=== PATIENT | female | born 1965 | race Caucasian/White ===

== ENCOUNTER → 2019-01-27 14:02 | Outpatient (CLI) | payer OTHER, SELFPAY ==
[2019-01-27 14:34] LABS: Erythrocyte Sedimentation Rate 22 mm/hr (0-30)
[2019-01-27 14:40] LABS: Chol/HDL Ratio 5.7 (1-3.5); Cholesterol 137 mg/dL (140-200); Free T4 (Free Thyroxine) 1.15 ng/dl (0.76-1.46); HDL Cholesterol 24 mg/dL (29-89); LDL Cholesterol 85 mg/dL (0-130); Triglycerides 138 mg/dL (30-200); VLDL Cholesterol 28 mg/dL (0-40)
[2019-01-27 14:51] LABS: C-Reactive Protein < 0.2 mg/L (0.0-0.9)
[2019-01-27 15:25] LABS: Hemoglobin A1C 9.1 % (0.0-7.0)
[2019-01-28 12:26] LABS: Anti-Centromere B Antibodies <0.2 AI (0.0-0.9); Anti-Jo-1 <0.2 AI (0.0-0.9); Anti-Smith Antibody <0.2 AI (0.0-0.9); Antichromatin Antibodies <0.2 AI (0.0-0.9); Antiscleroderma-70 Antibodies <0.2 AI (0.0-0.9); RNP Antibodies <0.2 AI (0.0-0.9); Sjogren's Anti-SS-A <0.2 AI (0.0-0.9); Sjogren's Anti-SS-B <0.2 AI (0.0-0.9)
[2019-01-29 06:26] LABS: Anti-DNA (DS) Ab Qn 1 IU/mL (0-9); RA Latex Turbid. <10.0 IU/mL (0.0-13.9); Triiodothyronine (T3) Free 3.9 pg/mL (2.0-4.4); Vitamin D 25 Hydroxy 72.4 ng/mL (30.0-100.0)
[2019-01-30 07:45] LABS: Anti-Cyclic Citrullinated Pept 10 units (0-19)
== END ==
PROVIDERS: Visit Provider Nurse Practitioner Family
DX: R53.83 Other fatigue (principal); M54.9 Dorsalgia, unspecified; R73.09 Other abnormal glucose
CPT/HCPCS: 80061; 82652; 83036; 84439; 84443; 84481; 85651; 86140; 86200; 86225; 86235; 86431

== ENCOUNTER → 2019-01-28 14:06 | Outpatient (CLI) | payer OTHER, SELFPAY ==
--- NOTE | 2019-01-28 14:11 | XR_ITS ---
EXAM: XR lumbar spine 2-3V HISTORY: ITS.REASON: pain ORDERING PHYSICIAN: Rubia Rodriguez APRN PATIENT AGE: 53 years COMPARISON: None FINDINGS: Normal alignment. No fracture or dislocation. No lytic or blastic change. Degenerative disc disease is present at T12-L1 and L1-L2. There are mild hypertrophic changes along the inferior left SI joint. IMPRESSION: Degenerative change, no acute finding
== END ==
PROVIDERS: PCP Emergency Medicine; Visit Provider Nurse Practitioner Family
DX: M54.9 Dorsalgia, unspecified (principal); M54.5 Low back pain
CPT/HCPCS: 72100

== ENCOUNTER → 2020-03-04 16:50 | Outpatient (CLI) | payer MEDICAID, SELFPAY | PROVIDERS: Visit Provider Physician Assistant | DX: E11.9 Type 2 diabetes mellitus without complications (principal); I10 Essential (primary) hypertension | CPT/HCPCS: 82043 ==

== ENCOUNTER → 2020-03-22 10:17 | Outpatient (CLI) | payer MEDICAID, SELFPAY ==
[2020-03-22 10:34] LABS: Basophils # 0.1 K/mm3 (0-0.2); Basophils % 0.8 % (0.1-2.0); Eosinophils # 0.2 K/mm3 (0.0-0.4); Hematocrit 45.9 % (37.0-47.0); Hemoglobin 16.1 g/dL (12.2-16.2); Lymphocytes # 1.8 K/mm3 (0.7-4.5); Lymphocytes % 26.6 % (10-50); Mean Corpuscular HGB Conc 35.2 g/dL (31.8-35.4); Mean Corpuscular Hemoglobin 31.9 pg (27.0-31.2); Mean Corpuscular Volume 90.7 fl (81-99); Mean Platelet Volume 9.7 fl (7.4-10.4); Monocytes # 0.4 K/mm3 (0.1-1.0); Monocytes % 5.8 % (1.7-9.3); Neutrophils # 4.4 K/mm3 (1.8-7.8); Neutrophils % 63.9 % (37.0-80.0); Platelet Count 168 K/mm3 (142-424); Red Blood Count 5.06 M/mm3 (4.20-5.40); Red Cell Distribution Width 13.8 % (11.5-17.5); White Blood Count 6.8 K/mm3 (4.8-10.8)
[2020-03-22 11:08] LABS: Alanine Aminotransferase 33 U/L (12-78); Albumin Level 3.9 g/dl (3.5-5.0); Albumin/Globulin Ratio 1.3 (1.1-1.8); Alkaline Phosphatase 80 U/L (38-126); Anion Gap 14.8 mEq/L (5-15); Aspartate Amino Transferase 29 U/L (14-36); Bilirubin,Total 0.4 mg/dl (0.2-1.3); Blood Urea Nitrogen 11 mg/dl (7-17); Calcium 10.4 mg/dl (8.4-10.2); Carbon Dioxide 26 mmol/L (22.0-30.0); Chloride 100 mmol/L (98-107); Chol/HDL Ratio 3.7 (1-3.5); Cholesterol 111 mg/dl (140-200); Estimated Glomerular Filt Rate 65 ml/min (>60); GFR (African American) 78 ML/MIN (>60); Globulin 3.1 g/dL (1.3-3.2); Glucose 131 mg/dl (74-100); HDL Cholesterol 30 mg/dl (40-60); Potassium 3.8 mmoL/L (3.5-5.1); Sodium 137 mmol/L (136-145); Triglycerides 211 mg/dl (30-150); VLDL Cholesterol 42 mg/dL (0-40)
[2020-03-22 11:18] LABS: Direct LDL Cholesterol 60.51 mg/dL (100-129)
[2020-03-22 11:24] LABS: T4 (Thyroxine) 8.6 ug/dl (5.53-11.0)
[2020-03-22 11:25] LABS: 25-OH Vitamin D, Total 44.5 ng/mL (30-100)
[2020-03-22 11:38] LABS: Thyroid Stimulating Hormone 3.08 uIU/mL (0.465-4.68)
[2020-03-22 11:39] LABS: Hemoglobin A1C 6.4 % (4.0-6.0)
== END ==
PROVIDERS: Visit Provider Physician Assistant
DX: E11.9 Type 2 diabetes mellitus without complications (principal); I10 Essential (primary) hypertension; Z79.4 Long term (current) use of insulin
CPT/HCPCS: 36415; 80053; 80061; 82043; 82306; 83036; 84436; 84443; 85025

== ENCOUNTER → 2020-04-01 10:18 | Outpatient (CLI) | payer MEDICAID, SELFPAY ==
--- NOTE | 2020-04-01 10:19 | MM_ITS ---
PROCEDURE: MM DIG SCREENING MAMM BI W/CAD Digital Breast Tomosynthesis Included CLINICAL INDICATION: screening There is no personal or family history of breast cancer. COMPARISON: This is a baseline screening exam, patient without complaints TECHNIQUE: Standard CC and MLO images and 3D Tomosynthesis was obtained. R2 CAD reviewed. FINDINGS: Breasts are composed primarily of fat with minimal scattered fibroglandular densities seen throughout each breast. There are couple of benign-appearing microcalcifications in each breast. There is no suspicious lesion in either breast and no suspicious microcalcifications. Small nodes in both axilla. IMPRESSION: Fatty type breast parenchyma with no suspicious lesions seen BI-RAD Category: 2 Benign Finding(s) FOLLOW-UP: 1YR 1 Year Follow-up (A letter has been sent to the patient regarding results of the study.) Dictated by: Dr. Mic Wagner MD 04/02/2020 09:21 Dr. Mic Wagner MD in [place] 04/02/2020 09:21
== END ==
PROVIDERS: PCP Physician Assistant; Visit Provider Physician Assistant
DX: Z12.31 Encounter for screening mammogram for malignant neoplasm of breast (principal)
CPT/HCPCS: 77063; 77067

== ENCOUNTER 2020-04-05 15:22 | Inpatient (IN) | payer MEDICAID, SELFPAY ==
[2020-04-05] VITALS (11 sets, daily range): BP systolic 80–120; BP diastolic 42–99; PULSE 71–120; RESP 18–42; TEMP 36.5–38.8; O2SAT 93–98; BMI 56.5; BMI 55.0
--- NOTE | 2020-04-05 15:40 | CT_ITS ---
PROCEDURE: CT ABDOMEN PELVIS W CON CLINICAL INDICATION: pain Lower abdominal pain COMPARISON: No exams were available for comparison TECHNIQUE: IV Contrast: 75ML OPTIRAY 350 Oral Contrast None Axial images obtained with sagittal and coronal reformats. All CT scans at the facility use one or more dose reduction, viz: automated exposure control, ma/kV adjustment per patient size (including targeted exams where dose is matched to indication, i.e. head), or iterative reconstruction technique. FINDINGS: Entire abdomen was not able to be included in the imaging plane due to patient's body habitus. No acute finding in the lung bases. There old left-sided rib fractures posteriorly. Low-density changes are present in the liver consistent with fatty liver which are somewhat heterogeneous. The low-density changes are somewhat more prominent in the medial segment of left hepatic lobe anterior to the gallbladder fossa and may be due to more extensive fatty infiltration. Consider follow-up to confirm stability. MRI with in and out of phase imaging may confirm that this is an area of fatty infiltration and not a liver lesion. There is a soft tissue density which appears to it here to superior wall the gallbladder measuring 1.4 x 2.9 x 2.7 cm. No calcified gallstones are evident. The gallbladder is distended. There is splenomegaly at 17 cm. The adrenal glands and pancreas have an unremarkable appearance. There is stranding the perinephric renal fat on the left with an edematous appearance of the left kidney with heterogeneous enhancement and enlargement of the left kidney as well as perinephric and periureteral fat stranding and mild thickening of the urothelium of the left renal pelvis. Hypodensity of the right kidney noted which may represent a renal cyst. No renal or ureteral calculi or hydronephrosis.. The left lateral abdominal wall and left pericolic gutter are not completely included on the exam. If this is an area of concern in a patient can be rescanned to include this area. There is diastasis rectus. Small fat containing umbilical hernia noted along with a fat containing ventral hernia of the anterior pelvic wall. Unremarkable appendix. No intestinal obstruction or free air. IMPRESSION: 1. Heterogeneous enhancement and enlargement of the left kidney with stranding of the perinephric and periureteral fat suspicious for pyelonephritis. 2. Mildly distended gallbladder with 2.9 cm lesion which appears adherent to the gallbladder wall which could be due to tumefactive sludge or soft tissue lesion. Right upper quadrant ultrasound may provide further evaluation. 3. Heterogeneous density of the liver more prominent in the medial segment of left hepatic lobe which may be due to fatty infiltration and could be confirmed with MRI with in and out of phase imaging. 4. Other nonacute findings as described above Dictated by: Pacheco Antoine MD 04/06/2020 06:28 Pacheco Antoine MD in [facility] 04/06/2020 06:28
--- NOTE | 2020-04-05 15:40 | HMH.EDGENADL ---
ED Disposition Clinical Impression: Pyelonephritis of left kidney, Morbid obesity Urinary incontinence Qualifiers: Urinary Incontinence type: unspecified incontinence Qualified Code(s): R32 - Unspecified urinary incontinence Disposition: Admitted As Inpatient Condition on Discharge: Fair Time of Disposition: 17:38 - Critical Care Critical Care Time: No Attestation: On , the high probability of a clinically significant, sudden or life threatening deterioration of the following system(s) required my full and direct attention, intervention and personal management. The time I documented below is in addition to time spent performing reported procedures but includes the following listed in this critical care notation. Medical Decision Making - Medical Records Medical records reviewed: Yes: I reviewed the patient's medical records. - Robert Inquiry Pt receiving controlled substance: No Vital Signs: 04/05/20 15:33 04/05/20 16:23 04/05/20 17:00 Temperature 100.2 F H Temperature Source Oral Pulse Rate Pulse Rate [Radial] 113 H 101 H 90 Respiratory Rate 22 18 18 Blood Pressure Blood Pressure [Right Arm] 99/53 L 101/50 L 105/54 L Blood Pressure Mean [Right Arm] 68 67 71 Blood Pressure Source Blood Pressure Source [Right Arm] Automatic Cuff Blood Pressure Position Blood Pressure Position [Right Arm] Sitting 02 Sat by Pulse Oximetry 93 L 94 L 95 Oxygen Delivery Method Room Air 04/05/20 18:30 04/05/20 19:29 04/05/20 19:40 Temperature 98 F 98.0 F Temperature Source Oral Oral Pulse Rate 90 Pulse Rate [Radial] 89 79 Respiratory Rate 18 18 18 Blood Pressure 80/42 L Blood Pressure [Right Arm] 102/87 L 88/75 L Blood Pressure Mean [Right Arm] 92 79 Blood Pressure Source Manual Cuff/ Auscultation Blood Pressure Source [Right Arm] Automatic Cuff Blood Pressure Position Sitting Blood Pressure Position [Right Arm] Sitting 02 Sat by Pulse Oximetry 95 98 Oxygen Delivery Method Room Air Room Air 04/05/20 19:55 04/05/20 20:30 Temperature Temperature Source Pulse Rate Pulse Rate [Radial] 72 77 Respiratory Rate 19 18 Blood Pressure Blood Pressure [Right Arm] 82/56 L 118/99 H Blood Pressure Mean [Right Arm] 64 105 Blood Pressure Source Blood Pressure Source [Right Arm] Automatic Cuff Blood Pressure Position Blood Pressure Position [Right Arm] Supine Supine 02 Sat by Pulse Oximetry 98 98 Oxygen Delivery Method Room Air - Lab Data Lab Results 04/05/20 15:44: WBC 13.4 H, RBC 5.03, Hgb 16.0, Hct 45.7, MCV 91.0, MCH 31.8 H, MCHC 34.9, RDW 13.7, Plt Count 150, MPV 9.5, Neut % (Auto) 87.9 H, Lymph % (Auto) 5.9 L, Nelson % (Auto) 5.0, Eos % (Auto) 0.8, Baso % (Auto) 0.4, Neut # (Auto) 11.7 H, Lymph # (Auto) 0.8, Nelson # (Auto) 0.7, Eos # (Auto) 0.1, Baso # (Auto) 0.1, Total Counted 100, Neutrophils % (Manual) 87 H, Lymphocytes % (Manual) 8 L, Monocytes % (Manual) 4, Eosinophils % (Manual) 1, Platelet Estimate Normal, RBC Morphology Normal 04/05/20 15:44: Sodium 136, Potassium 3.3 L, Chloride 100, Carbon Dioxide 21 L, Anion Gap 18.3 H, BUN 17, Creatinine 1.40 H, Estimated Creat Clear 42, Estimated GFR 39 L, Est GFR ( Amer) 47 L, Glucose 180 H, Calcium 9.4, Total Bilirubin 0.8, AST 29, ALT 32, Alkaline Phosphatase 58, Total Protein 7.2, Albumin 4.0, Globulin 3.2, Albumin/Globulin Ratio 1.3 04/05/20 15:44: Lactate 2.8 H 04/05/20 15:44: SARS-CoV-2 IgG Ab (Rapid) Negative, SARS-CoV-2 IgM Ab (Rapid) Negative 04/05/20 19:39: POC Glucose 160 H 04/05/20 20:24: Lactate 2.2 H Result diagrams: 04/05/20 15:44 04/05/20 15:44 Orders (Tests/Meds): ED MEDICATIONS Generic Name Dose Route Start Last Admin Trade Name Freq PRN Reason Stop Dose Admin Acetaminophen 650 mg 04/05/20 18:43 Acetaminophen 325mg Tab PO 05/05/20 18:42 Q4HP PRN As Needed for Fever or Pain Ceftriaxone Sodium 2 gm/ 100 mls @ 200 mls/hr 04/06/20 15:45 Sodium Chloride IV 04/19/20 1
--- NOTE | 2020-04-05 15:44 | XR_ITS ---
PROCEDURE: XR CHEST PORTABLE CLINICAL HISTORY: fever Fever, smoker COMPARISON: CR CXR CHEST(2 VIEWS-NOT PORTABLE) from 08/23/2013 CR CXR CHEST(2 VIEWS-NOT PORTABLE) from 05/22/2014 CR CXR CHEST(2 VIEWS-NOT PORTABLE) from 07/27/2014 FINDINGS: The cardiomediastinal silhouette and pulmonary vascularity are within normal limits. The lungs are clear without infiltrates, suspicious nodules, or pleural effusions. No acute bony abnormalities. IMPRESSION: No acute findings. Dictated by: Pacheco Antoine MD 04/05/2020 18:22 Pacheco Antoine MD in [place] 04/05/2020 18:22
[2020-04-05 16:01] LABS: Basophils # 0.1 K/mm3 (0-0.2); Basophils % 0.4 % (0.1-2.0); Eosinophils # 0.1 K/mm3 (0.0-0.4); Eosinophils % 0.8 % (0.1-12.0); Hematocrit 45.7 % (37.0-47.0); Lymphocytes # 0.8 K/mm3 (0.7-4.5); Lymphocytes % 5.9 % (10-50); Mean Corpuscular HGB Conc 34.9 g/dL (31.8-35.4); Mean Corpuscular Hemoglobin 31.8 pg (27.0-31.2); Mean Platelet Volume 9.5 fl (7.4-10.4); Monocytes # 0.7 K/mm3 (0.1-1.0); Neutrophils # 11.7 K/mm3 (1.8-7.8); Neutrophils % 87.9 % (37.0-80.0); Platelet Count 150 K/mm3 (142-424); Red Blood Count 5.03 M/mm3 (4.20-5.40); Red Cell Distribution Width 13.7 % (11.5-17.5); White Blood Count 13.4 K/mm3 (4.8-10.8)
[2020-04-05 16:03] LABS: Chloride 100 mmol/L (98-107); Sodium 136 mmol/L (136-145)
[2020-04-05 16:04] LABS: MANUAL DIFFERENTIAL MANUAL DIFFERENTIAL (MANUAL DIFF); Potassium 3.3 mmoL/L (3.5-5.1)
[2020-04-05 16:06] LABS: Alanine Aminotransferase 32 U/L (12-78); Anion Gap 18.3 mEq/L (5-15); Aspartate Amino Transferase 29 U/L (14-36); Blood Urea Nitrogen 17 mg/dl (7-17); Carbon Dioxide 21 mmol/L (22.0-30.0); Creatinine Clearance Estimated 42 mL/min (50-200); Estimated Glomerular Filt Rate 39 ml/min (>60); GFR (African American) 47 ML/MIN (>60); Lactic Acid 2.8 mmol/L (0.7-2.1)
[2020-04-05 16:07] LABS: Albumin/Globulin Ratio 1.3 (1.1-1.8); Alkaline Phosphatase 58 U/L (38-126); Bilirubin,Total 0.8 mg/dl (0.2-1.3); Calcium 9.4 mg/dl (8.4-10.2); Globulin 3.2 g/dL (1.3-3.2); Glucose 180 mg/dl (74-100); Total Protein,Serum 7.2 g/dl (6.3-8.2)
[2020-04-05 16:20] LABS: Eosinophils % 1 % (0-3); Lymphocytes % 8 % (10-50); Monocytes % 4 % (2-9); Neutrophils % 87 % (42-76); Total Cells Counted 100
[2020-04-05 16:21] LABS: Platelet Estimate Normal; RBC Morphology Normal
[2020-04-05 16:28] LABS: Coronavirus 19 IgG Antibody Negative (Negative); Coronavirus 19 IgM Antibody Negative (Negative)
--- NOTE | 2020-04-05 17:35 | PC.NURSE ---
speaking with Dr. Mascorro at this time.
--- NOTE | 2020-04-05 18:40 | PC.NURSE ---
notified of sepsis. No fluid bolus needed at this time.
--- NOTE | 2020-04-05 19:17 | PC.NURSE ---
report given to ephraim
--- NOTE | 2020-04-05 19:30 | PC.NURSE ---
received report from eduardo at 1930.
--- NOTE | 2020-04-05 19:40 | PC.NURSE ---
bs 160
[2020-04-05 19:42] LABS: POC Glucose,Bedside 160 (70-110)
[2020-04-05 19:55] LABS: Reflex Lactic Add Lactic Reflex
--- NOTE | 2020-04-05 19:57 | PC.NURSE ---
called for transport to floor with incr in bp noted.
[2020-04-05 20:43] LABS: Lactic Acid Follow Up (RFLX 1) 2.2 mmol/L (0.7-2.1)
--- NOTE | 2020-04-05 20:49 | PC.NURSE ---
PT ARRIVED TO THE FLOOR VIA W/C FROM AT 2049
[2020-04-05 22:27] LABS: Reflex Lactic (2 hrs) Add Lactic Reflex
[2020-04-05 23:02] LABS: Lactic Acid Follow up (RFLX 2) 4.7 mmol/L (0.7-2.1)
--- NOTE | 2020-04-05 23:25 | PC.NURSE ---
THIS NURSE WAS NOTIFIED OF CRITICAL LACTIC OF 4.7. THIS IS PTS THIRD LACTIC. CALLED CRITICAL LAB TO RESEARCH DEVELOPMENT DIRECTOR MD KITCHEN. PT RECEIVED 2 BOLUSES IN ER. ORDERED FOR PT TO RECEIVE REMAINDER OF CALCULATED FLUID BOLUS (2762.71) AT THIS TIME. BOLUS STARTED AT THIS TIME. PT TEMP 101.8 RECTALLY. BLANKETS REMOVED, FAN ON, TYLENOL GIVEN. WILL CONTINUE TO MONITOR PT VS Q3O MINS WHILE GETTING BOLUS. WILL ORDER X1 MORE LACTIC PER IMTIAZ WHEN PT IS DONE WITH BOLUS.
[2020-04-06] VITALS (14 sets, daily range): BP systolic 95–147; BP diastolic 59–81; PULSE 88–110; RESP 18–30; TEMP 36.6–39.3; O2SAT 91–97; BMI 54.9
--- NOTE | 2020-04-06 03:15 | PC.NURSE ---
PT A&OX4 BUT HAS BEEN INTERMITTENTLY CONFUSED T/O SHIFT. UPON ARRIVAL, PT WALKED HERSELF TO THE BATHROOM. PT THEN BECAME LETHARGIC AND SHIVERING. PT FEVER NOTED, AND HIGH LACTIC NOTED. MD KITCHEN NOTIFIED AND REMAINDER OF SEPSIS BOLUS CONTINUED. V/S MONITORED [id number] DURING AND 2HRS AFTER. PT HAS CONTINUED TO BE FEBRILE. ACTIVE COOLING MEASURES IN PLACE AND MEDS GIVEN PER OCT. PT HAS RESTED IN BED WITH EYES CLOSED T/O REMAINDER OF SHIFT. PT HAS SINCE BEEN INCONTNENT OF BOWEL AND BLADDER. BOTTOM KEPT CLEAN AND DRY. PT TURNING HERSELF IN BED. WILL CONTINUE TO MEASURE V/S AND PT.
[2020-04-06 03:39] LABS: Lactic Acid 1.8 mmol/L (0.7-2.1)
[2020-04-06 07:06] LABS: Monocytes # 0.5 K/mm3 (0.1-1.0); Red Cell Distribution Width 13.9 % (11.5-17.5)
[2020-04-06 07:09] LABS: Chloride 104 mmol/L (98-107); Potassium 3.5 mmoL/L (3.5-5.1); Sodium 137 mmol/L (136-145)
[2020-04-06 07:12] LABS: Anion Gap 14.5 mEq/L (5-15); Blood Urea Nitrogen 20 mg/dl (7-17); Carbon Dioxide 22 mmol/L (22.0-30.0); Creatinine Clearance Estimated 45 mL/min (50-200); Estimated Glomerular Filt Rate 42 ml/min (>60); GFR (African American) 51 ML/MIN (>60); Glucose 114 mg/dl (74-100)
[2020-04-06 07:15] LABS: Basophils % 0.1 % (0.1-2.0); Eosinophils % 0.1 % (0.1-12.0); Hematocrit 40.9 % (37.0-47.0); Lymphocytes # 0.9 K/mm3 (0.7-4.5); Lymphocytes % 6.7 % (10-50); Mean Corpuscular HGB Conc 34.2 g/dL (31.8-35.4); Mean Corpuscular Hemoglobin 31.9 pg (27.0-31.2); Mean Corpuscular Volume 93.4 fl (81-99); Mean Platelet Volume 9.7 fl (7.4-10.4); Monocytes % 4.1 % (1.7-9.3); Neutrophils # 11.7 K/mm3 (1.8-7.8); Platelet Count 131 K/mm3 (142-424); Red Blood Count 4.38 M/mm3 (4.20-5.40); White Blood Count 13.1 K/mm3 (4.8-10.8)
[2020-04-06 07:17] LABS: MANUAL DIFFERENTIAL MANUAL DIFFERENTIAL (MANUAL DIFF)
--- NOTE | 2020-04-06 07:25 | P.CONPHA_ITS ---
[facility] Pharmacy VTE Monitoring - Patient Demographics Admission date: 04/05/20 Report Date: 04/06/20 Time: 07:25 Allergies/Adverse Reactions: Patient Allergies Penicillins Allergy (Unknown, Verified 04/05/20 15:54) Hives Height: 1.68 m Weight: 155.1 kg Patient Problems: Current Active Problems Pyelonephritis of left kidney (Acute) Morbid obesity (Acute) Urinary incontinence (Acute) - VTE Risk Labs: VTE Related Lab Results Hgb 14.0 g/dL (12.2-16.2) D 04/06/20 06:38 Hct 40.9 % (37.0-47.0) 04/06/20 06:38 Plt Count 131 K/mm3 (142-424) L 04/06/20 06:38 BUN 20 mg/dl (7-17) H 04/06/20 06:38 Creatinine 1.30 mg/dl (0.52-1.04) H 04/06/20 06:38 Estimated Creat Clear 45 mL/min (50-200) 04/06/20 06:38 Was VTE Risk Assessment Performed: Yes VTE Score: 6 VTE Risk Level: Moderate Risk Clinical Trial Participant: No - Prophylaxis VTE Prophylaxis Ordered?: Yes Types of VTE Prophylaxis: TEDS Knee High
[2020-04-06 07:27] LABS: Calcium 7.6 mg/dl (8.4-10.2)
[2020-04-06 08:13] LABS: Lymphocytes % 10 % (10-50); Monocytes % 5 % (2-9); Neutrophils % 77 % (42-76); RBC Morphology Normal; Total Cells Counted 100
[2020-04-06 08:14] LABS: Platelet Estimate Normal
--- NOTE | 2020-04-06 09:31 | HMH.PHAINT ---
HOME MEDICATION RECONCILIATION COMPLETED USING LIST FROM PHARMACY
--- NOTE | 2020-04-06 11:49 | HMH.HP ---
*Admission Date: 04/05/20 *Chief complaint: Fever *History of present illness: 55-year-old female with history of diabetes presenting to the emergency department with fever and low back pain. Symptoms started yesterday. She felt generally unwell and had a pain in the midportion of her low back that radiated to the right and the left. Today she felt sweaty and took her temperature. Found it to be 101.2 Fahrenheit. She has not taken any medications for pain or fever. She is incontinent of urine normally. No pain or burning with urination. No rashes on her skin. She is able to walk and do chores around the house. No skin wounds. She has a chronic cough because of asthma, but no new productive cough. No neck pain, headache, vision changes, anterior abdominal pain. No nausea or vomiting. On presentation to the ER temperature was 100.2 orally, pulse was 113, respirations were 22, and blood pressure was 99/53 room air sats 93%. She was given IV fluids and ceftriaxone IV. White blood cell count 13.4, H&H 16 and 45.7. Potassium 3.3, sodium 136, BUN 17, and creatinine 1.4 GFR was 42 and lactate 2.8. This morning she does report feeling better, she is still reporting lower back pain flu IV fluids are infusing and she is receiving ceftriaxone. We are still awaiting blood cultures x2 and urine culture. Patient stable discussion with her she states she has no questions Abd Pelvis CT 04/05/20: IMPRESSION: 1. Heterogeneous enhancement and enlargement of the left kidney with stranding of the perinephric and periureteral fat suspicious for pyelonephritis. 2. Mildly distended gallbladder with 2.9 cm lesion which appears adherent to the gallbladder wall which could be due to tumefactive sludge or soft tissue lesion. Right upper quadrant ultrasound may provide further evaluation. 3. Heterogeneous density of the liver more prominent in the medial segment of left hepatic lobe which may be due to fatty infiltration and could be confirmed with MRI with in and out of phase imaging. 4. Other nonacute findings as described above Dictated by: Arash, CXR 04/05/20: FINDINGS: The cardiomediastinal silhouette and pulmonary vascularity are within normal limits. The lungs are clear without infiltrates, suspicious nodules, or pleural effusions. No acute bony abnormalities. IMPRESSION: No acute findings. Dictated by: Arash 1. Continue ceftriaxone 2. Continue IV fluids 3. Awaiting blood cultures and urine culture [facility] History Medical History: Reports:: Anxiety, Asthma, Diabetes Mellitus Type 2, Gastroesophageal Reflux Disease(GERD), Hyperlipidemia, Hypertension *Have you ever received a pneumonia vaccine?: No *Have you received a flu vaccine this season?: No Other Medical History: Reports: Arthritis, Other Laterality Cases: Left: Carpal Tunnel Release Other Surgeries: Yes: Tubal Ligation, Other Amputation: No Fractures: No - *Social History Last grade of school completed: High school graduate Smoking Status: Current every day smoker Tobacco Type: cigarettes # Packs/Day (cigarettes): 1 Alcohol Intake: never Substance Use Type: marijuana, former substance user *Occupational Status:: retired, disabled *Travel in the last 8 weeks: None - Psychiatric History Pschychiatric History:: Reports:: Anxiety Family Hx:: Heart Attack, Cancer, Coronary Artery Disease, Other, Hypertension, Diabetes Review of Systems - Review of Systems Review of systems:: pertinent systems reviewed and negative unless documented below - Constitutional Reports body ache(s), Reports chills, Reports fever(s) - Eyes Denies blurry vision, Denies change in vision - ENT Denies difficulty swallowing, Denies headache(s) - *Cardiovascular Denies chest pain, Denies rapid, pounding, or irregular heartbeat - *Respiratory Reports cough, Denies excessive phlegm production - *Gastrointestinal Denies abdominal pain, Denies black, tarry stools, Denies nausea
[2020-04-06 11:55] LABS: POC Glucose,Bedside 146 (70-110)
[2020-04-06 16:14] LABS: POC Glucose,Bedside 138 (70-110)
--- NOTE | 2020-04-06 19:56 | PC.NURSE ---
PATIENT A&OX4, LUNGS DIMINSHED, PULSES EQUAL, BLE +1 EDEMA. PATIENT IS INCONTINENT OF BOWELS AND URINE. PATIENT HAD A BATH THIS AM AND 4 LINEN CHANGES DURING THIS RN SHIFT. PATIENT UP TO CHAIR X2 DURING THIS RN SHIFT. PATIENT COMPLAINED OF BACK PAIN, THIS RN ADMINISTERED IBUPROFEN, PATIENT STATED THAT THE MEDICATION HAD HELPED. THIS RN PHONE DR. PORTILLO OFFICE FOR FSBS ORDERS. THIS RN SPOKE IN PERSON WITH DR. PORTILLO FOR FSBS ORDERS AND THAT PATIENT REQUESTED SOMETHING TO HELP SLEEP TONITE. MD ORDERED LOW INTENSITY SLIDING SCALE AND 10MG PO AMBIEN AT HS PRN. NO OTHER CONCERNS AT THIS TIME.
[2020-04-06 21:01] LABS: POC Glucose,Bedside 127 (70-110)
[2020-04-07] VITALS: BP 140/69; PULSE 106; RESP 22; TEMP 37.8; O2SAT 95
--- NOTE | 2020-04-07 02:27 | PC.NURSE ---
SRNA LCampos offered to help pt brush her, pt refused stating would help her tomorrow, shower offered and pt stated that she had showered on day shift
--- NOTE | 2020-04-07 03:52 | PC.NURSE ---
No acute changes. Insp. and Exp. wheezing throughout upon auscultation. No complaints reported to staff. Medicated per OCT. Purwick in place when pt is in bed, draining clear, dark yellow urine. Pt has been up to chair since approximately 0300.
[2020-04-07 04:00] VITALS: BP 128/86; PULSE 70; RESP 24; TEMP 37.8; O2SAT 96
[2020-04-07 05:00] VITALS: BMI 55.1
[2020-04-07 05:42] LABS: POC Glucose,Bedside 130 (70-110)
[2020-04-07 06:36] LABS: Lymphocytes # 1.4 K/mm3 (0.7-4.5); Monocytes # 0.9 K/mm3 (0.1-1.0)
[2020-04-07 06:46] LABS: Chloride 100 mmol/L (98-107); Potassium 3.1 mmoL/L (3.5-5.1); Sodium 131 mmol/L (136-145)
[2020-04-07 06:49] LABS: Blood Urea Nitrogen 20 mg/dl (7-17); Creatinine Clearance Estimated 53 mL/min (50-200); Estimated Glomerular Filt Rate 51 ml/min (>60); GFR (African American) 62 ML/MIN (>60)
[2020-04-07 06:50] LABS: Anion Gap 14.1 mEq/L (5-15); Calcium 7.2 mg/dl (8.4-10.2); Carbon Dioxide 20 mmol/L (22.0-30.0); Glucose 116 mg/dl (74-100)
[2020-04-07 07:19] LABS: Basophils % 0.1 % (0.1-2.0); Eosinophils % 0.3 % (0.1-12.0); Hematocrit 35.1 % (37.0-47.0); Lymphocytes % 10.4 % (10-50); Mean Corpuscular HGB Conc 35.6 g/dL (31.8-35.4); Mean Corpuscular Hemoglobin 31.9 pg (27.0-31.2); Mean Corpuscular Volume 89.4 fl (81-99); Mean Platelet Volume 10.9 fl (7.4-10.4); Monocytes % 6.4 % (1.7-9.3); Neutrophils # 11.1 K/mm3 (1.8-7.8); Neutrophils % 82.8 % (37.0-80.0); Platelet Count 109 K/mm3 (142-424); Red Blood Count 3.92 M/mm3 (4.20-5.40); White Blood Count 13.4 K/mm3 (4.8-10.8)
[2020-04-07 07:22] LABS: Hemoglobin 12.5 g/dL (12.2-16.2)
[2020-04-07 08:00] VITALS: BP 122/96; PULSE 82; RESP 18; TEMP 36.9; O2SAT 97
--- NOTE | 2020-04-07 10:14 | HMH.ACPN2 ---
Internal Medicine - PN: Subj *Date: 04/07/20 *Time: 10:16 Interval history: 55-year-old female patient lying in bed resting quietly, awakens to verbal stimuli. She reports she had a good night she is feeling better today than she was yesterday. Creatinine is down to 1.1, still awaiting final report from blood culture urine culture, blood culture showing preliminary gram-negative rods and she is receiving ceftriaxone IV. She also reports that she has been incontinent of urine even before this episode for quite a while she reports taking medication for this in the past and nothing was effective, will consult urology for this Exam Vital signs and Labs for Last 24 Hours: Temp Pulse Resp BP Pulse Ox 98.8 F 86 20 120/60 92 L 04/07/20 16:00 04/07/20 16:00 04/07/20 16:00 04/07/20 16:00 04/07/20 16:00 Laboratory Results - last 24 hr 04/06/20 20:52: POC Glucose 127 H 04/07/20 05:23: POC Glucose 130 H 04/07/20 05:29: WBC 13.4 H, RBC 3.92 L, Hgb 12.5 D, Hct 35.1 L, MCV 89.4, MCH 31.9 H, MCHC 35.6 H, RDW 14.0, Plt Count 109 L, MPV 10.9 H, Neut % (Auto) 82.8 H, Lymph % (Auto) 10.4, Marin % (Auto) 6.4, Eos % (Auto) 0.3, Baso % (Auto) 0.1, Neut # (Auto) 11.1 H, Lymph # (Auto) 1.4, Marin # (Auto) 0.9, Eos # (Auto) 0.0, Baso # (Auto) 0.0 04/07/20 05:29: Sodium 131 L, Potassium 3.1 L, Chloride 100, Carbon Dioxide 20 L, Anion Gap 14.1, BUN 20 H, Creatinine 1.10 H, Estimated Creat Clear 53, Estimated GFR 51 L, Est GFR ( Amer) 62 D, Glucose 116 H, Calcium 7.2 L 04/07/20 10:55: POC Glucose 115 H 04/07/20 16:29: POC Glucose 125 H I & O for Last 24 hours: Intake & Output 04/04/20 04/05/20 04/06/20 04/07/20 23:59 23:59 23:59 23:59 Intake Total 4286 / 4286 2340 / 2340 Output Total 100 / 100 200 / 200 Balance 4186 / 4186 2140 / 2140 Weight 340 lb 13.354 oz 341 lb 14.991 oz 343 lb 14.738 oz Microbiology Reports for the Last 24 Hours: Microbiology 04/06/20 12:50 Urine,Clean Catch Urine Culture - Preliminary NO GROWTH AFTER 24 HOURS 04/05/20 15:44 Blood Blood Culture - Preliminary Gram Negative Rods 04/05/20 15:44 Blood Blood Culture - Preliminary Gram Negative Rods - Constitutional no acute distress, obese - *Routine HEENT Exam Head: Present: normocephalic ENT: Present: mucous membranes moist. Absent: sinus tenderness Assessment and Plan (1) Pyelonephritis of left kidney Current visit: Yes Status: Acute Category: Medical Code(s): N12 - Tubulo-interstitial nephritis, not specified as acute or chronic (2) Morbid obesity Current visit: Yes Status: Acute Category: Medical Code(s): E66.01 - Morbid (severe) obesity due to excess calories (3) Hypertension Current visit: No Status: Chronic Qualifiers: Category: Medical Code(s): I10 - Essential (primary) hypertension (4) Diabetes Current visit: No Status: Chronic Qualifiers: Category: Medical Code(s): E11.9 - Type 2 diabetes mellitus without complications (5) Anxiety state Current visit: No Status: Acute Category: Medical Code(s): F41.1 - Generalized anxiety disorder (6) Urinary incontinence Current visit: Yes Status: Acute Qualifiers: Urinary Incontinence type: unspecified incontinence Qualified Code(s): R32 - Unspecified urinary incontinence Category: Medical Code(s): R32 - Unspecified urinary incontinence - Assessment and plan all Dx Assessment and Plan for all problems:: Dr. Mott will round on patient tonight, all orders per Dr. Mott: 1. Consult urology for urinary incontinence 2. Awaiting final blood and urine culture
[2020-04-07 13:26] LABS: POC Glucose,Bedside 115 (70-110)
[2020-04-07 13:39] VITALS: BMI 55.3
[2020-04-07 16:00] VITALS: BP 120/60; PULSE 86; RESP 20; TEMP 37.1; O2SAT 92
[2020-04-07 16:42] LABS: POC Glucose,Bedside 125 (70-110)
--- NOTE | 2020-04-07 18:34 | PC.NURSE ---
Pt has been up to chair majority of shift. Remains on room air. Has had numerous incontinent episodes of bowel and bladder. Has been assisted multiple times this shift w/ getting cleaned up by staff. Pt states that this is not out of the ordinary or her. Pt does have Jasmyn consult tomorrow. Is able to ambulates independently w/o safety concerns. Appetite is good. Remains afebrile this shift. Family currently at bedside. No needs voiced at this time.
--- NOTE | 2020-04-07 19:09 | PC.NURSE ---
report given to ethan
[2020-04-07 19:50] VITALS: O2SAT 95
[2020-04-07 19:57] VITALS: BP 140/86; PULSE 92; RESP 18; TEMP 37.1; O2SAT 95
[2020-04-07 20:14] LABS: POC Glucose,Bedside 130 (70-110)
--- NOTE | 2020-04-08 02:20 | PC.NURSE ---
A&OX4. PT HAS TOLERATED ROOM AIR WELL THROUGHOUT SHIFT. RESPIRATIONS REGULAR AND UNLABORED. INSPIRATORY WHEEZES AUSCULTATED THROUGHOUT. NO COUGH NOTED. ACTIVE BOWEL SOUNDS HEARD IN ALL 4 QUADRANTS. SOFT AND NONTENDER ABDOMEN. +2 PULSES NOTED THROUGHOUT. HAND COMMERCIAL LEASING MANAGER EQUAL. NO EDEMA NOTED. PT AMBULATES INDEPENDENTLY TO THE RESTROOM AND MOVES INDEPENDENTLY IN BED. PT HAS HAD A FEW EPISODES OF INCONTINENCE TONIGHT AND HAS CHANGED HERSELF. PT HAD A BM THIS SHIFT. YELLOW URINE NOTED INSIDE BRIEF. NS INFUSING AT 150ML/HR. PT'S IV INFILTRATED THIS SHIFT AND A NEW IV WAS STARTED IN THE L FOREARM. PT TOLERATED WELL. OLD IV WAS REMOVED W CATHETER INTACT. PRESSURE WAS APPLIED W 2X2 AND COBAN. PT REPORTED PAIN ONCE THIS SHIFT IN HER BACK RATING IT A 7 OUT OF 10. IBUPROFEN 400MG WAS ADMINISTERED. PT HAS RESTED WELL THIS SHIFT. PT IS CURRENTLY UP TO THE CHAIR W CALL LIGHT WITHIN REACH. VSS. NO CONCERNS AT THIS TIME. WILL CONTINUE TO MONITOR.
[2020-04-08 04:00] VITALS: BP 109/65; PULSE 64; RESP 18; TEMP 37.1; O2SAT 98
[2020-04-08 05:43] LABS: POC Glucose,Bedside 117 (70-110)
[2020-04-08 06:30] VITALS: BMI 56.7
[2020-04-08 06:42] LABS: Basophils % 0.3 % (0.1-2.0); Eosinophils # 0.1 K/mm3 (0.0-0.4); Eosinophils % 1.3 % (0.1-12.0); Hematocrit 38.4 % (37.0-47.0); Hemoglobin 13.2 g/dL (12.2-16.2); Lymphocytes # 1.2 K/mm3 (0.7-4.5); Lymphocytes % 14.2 % (10-50); Mean Corpuscular HGB Conc 34.3 g/dL (31.8-35.4); Mean Corpuscular Hemoglobin 31.3 pg (27.0-31.2); Mean Corpuscular Volume 91.3 fl (81-99); Mean Platelet Volume 9.9 fl (7.4-10.4); Monocytes # 0.6 K/mm3 (0.1-1.0); Monocytes % 6.9 % (1.7-9.3); Neutrophils # 6.4 K/mm3 (1.8-7.8); Neutrophils % 77.3 % (37.0-80.0); Platelet Count 110 K/mm3 (142-424); Red Blood Count 4.21 M/mm3 (4.20-5.40); White Blood Count 8.2 K/mm3 (4.8-10.8)
[2020-04-08 06:44] LABS: Anion Gap 11.3 mEq/L (5-15); Blood Urea Nitrogen 18 mg/dl (7-17); Calcium 7.5 mg/dl (8.4-10.2); Carbon Dioxide 26 mmol/L (22.0-30.0); Chloride 100 mmol/L (98-107); Creatinine Clearance Estimated 65 mL/min (50-200); Estimated Glomerular Filt Rate 65 ml/min (>60); GFR (African American) 78 ML/MIN (>60); Glucose 101 mg/dl (74-100); Potassium 3.3 mmoL/L (3.5-5.1); Sodium 134 mmol/L (136-145)
[2020-04-08 07:49] VITALS: BP 136/84; PULSE 70; RESP 18; TEMP 37.2; O2SAT 98
--- NOTE | 2020-04-08 08:35 | PC.NURSE ---
Late Entry: Spoke with Irina osman consult on pt at [phone]
--- NOTE | 2020-04-08 09:45 | HMH.DCSUM ---
General - General Admission date:: 04/05/20 Discharge date: 04/08/20 HPI HPI: 55-year-old female with history of diabetes presenting to the emergency department with fever and low back pain. Symptoms started yesterday. She felt generally unwell and had a pain in the midportion of her low back that radiated to the right and the left. Today she felt sweaty and took her temperature. Found it to be 101.2 Fahrenheit. She has not taken any medications for pain or fever. She is incontinent of urine normally. No pain or burning with urination. No rashes on her skin. She is able to walk and do chores around the house. No skin wounds. She has a chronic cough because of asthma, but no new productive cough. No neck pain, headache, vision changes, anterior abdominal pain. No nausea or vomiting. On presentation to the ER temperature was 100.2 orally, pulse was 113, respirations were 22, and blood pressure was 99/53 room air sats 93%. She was given IV fluids and ceftriaxone IV. White blood cell count 13.4, H&H 16 and 45.7. Potassium 3.3, sodium 136, BUN 17, and creatinine 1.4 GFR was 42 and lactate 2.8. This morning she does report feeling better, she is still reporting lower back pain flu IV fluids are infusing and she is receiving ceftriaxone. We are still awaiting blood cultures x2 and urine culture. Patient stable discussion with her she states she has no questions Abd Pelvis CT 04/05/20: IMPRESSION: 1. Heterogeneous enhancement and enlargement of the left kidney with stranding of the perinephric and periureteral fat suspicious for pyelonephritis. 2. Mildly distended gallbladder with 2.9 cm lesion which appears adherent to the gallbladder wall which could be due to tumefactive sludge or soft tissue lesion. Right upper quadrant ultrasound may provide further evaluation. 3. Heterogeneous density of the liver more prominent in the medial segment of left hepatic lobe which may be due to fatty infiltration and could be confirmed with MRI with in and out of phase imaging. 4. Other nonacute findings as described above Dictated by: Arash CXR 04/05/20: FINDINGS: The cardiomediastinal silhouette and pulmonary vascularity are within normal limits. The lungs are clear without infiltrates, suspicious nodules, or pleural effusions. No acute bony abnormalities. IMPRESSION: No acute findings. Dictated by: Arsah 1. Continue ceftriaxone 2. Continue IV fluids 3. Awaiting blood cultures and urine culture Hospital Course Hospital Course: Laboratory Tests 04/05/20 04/05/20 04/05/20 15:44 15:44 15:44 WBC 13.4 H RBC 5.03 Hgb 16.0 Hct 45.7 MCV 91.0 MCH 31.8 H MCHC 34.9 RDW 13.7 Plt Count 150 MPV 9.5 Neut % (Auto) 87.9 H Lymph % (Auto) 5.9 L [place] % (Auto) 5.0 Eos % (Auto) 0.8 Baso % (Auto) 0.4 Neut # (Auto) 11.7 H Lymph # (Auto) 0.8 [place] # (Auto) 0.7 Eos # (Auto) 0.1 Baso # (Auto) 0.1 Total Counted 100 Neutrophils % (Manual) 87 H Band Neutrophils % Lymphocytes % (Manual) 8 L Monocytes % (Manual) 4 Eosinophils % (Manual) 1 Platelet Estimate Normal RBC Morphology Normal Sodium 136 Potassium 3.3 L Chloride 100 Carbon Dioxide 21 L Anion Gap 18.3 H BUN 17 Creatinine 1.40 H Estimated Creat Clear 42 Estimated GFR 39 L Est GFR ( Amer) 47 L Glucose 180 H POC Glucose Lactate 2.8 H Calcium 9.4 Total Bilirubin 0.8 AST 29 ALT 32 Alkaline Phosphatase 58 Total Protein 7.2 Albumin 4.0 Globulin 3.2 Albumin/Globulin Ratio 1.3 SARS-CoV-2 IgG Ab (Rapid) SARS-CoV-2 IgM Ab (Rapid) 04/05/20 04/05/20 04/05/20 15:44 19:39 20:24 WBC RBC Hgb Hct MCV MCH MCHC RDW Plt Count MPV Neut % (Auto) Lymph % (Auto) [place] % (Auto) Eos % (Auto) Baso % (Auto) Neut # (Auto) Lymph # (Auto)
--- NOTE | 2020-04-08 11:57 | HMH.PHAINT ---
DISCHARGE COUNSELING COMPLETED.
--- NOTE | 2020-04-08 13:08 | HMH.CONS ---
*Admission Date: 04/05/20 *Reason for consult:: Urinary incontinence *History of present illness: Patient is a 55-year-old morbidly obese admitted 2 days ago with fever and back pain. Her white count was 13,000 and her creatinine was 1.4. CT scan was consistent with left-sided pyelonephritis. No evidence of obstructing stones was noted. Her symptoms have improved on IV antibiotics. She is referred for urinary incontinence. She gives a history of mixed urinary incontinence and that she leaks with urgency as well as with stress type maneuvers. Patient states she has been on Detrol in the past with good results but is no longer on it. Discharge is planned for later today. [facility] History Medical History: Reports:: Anxiety, Asthma, Diabetes Mellitus Type 2, Gastroesophageal Reflux Disease(GERD), Hyperlipidemia, Hypertension *Have you ever received a pneumonia vaccine?: No *Have you received a flu vaccine this season?: No Other Medical History: Reports: Arthritis, Other Laterality Cases: Left: Carpal Tunnel Release Other Surgeries: Yes: Tubal Ligation, Other Amputation: No Fractures: No - *Social History Last grade of school completed: High school graduate Smoking Status: Current every day smoker Tobacco Type: cigarettes # Packs/Day (cigarettes): 1 Alcohol Intake: never Substance Use Type: marijuana, former substance user *Occupational Status:: retired, disabled *Travel in the last 8 weeks: None - Psychiatric History Pschychiatric History:: Reports:: Anxiety Family Hx:: Heart Attack, Cancer, Coronary Artery Disease, Other, Hypertension, Diabetes Review of Systems - Review of Systems Review of systems:: pertinent systems reviewed and negative unless documented below - *Neurologic Denies confusion, Denies headache(s) Meds Home Medications Medication Instructions Recorded Confirmed Type simvastatin 20 mg tablet 20 mg PO HS #90 tab 03/04/20 04/05/20 Rx venlafaxine 150 mg tablet,extended 150 mg PO DAILY #90 tab 03/04/20 04/05/20 Rx release 24 hr albuterol sulfate 90 mcg/actuation 2 puff INHALATION Q6H PRN #18 g 03/26/20 04/05/20 Rx aerosol inhaler Cholecalciferol (Vitamin D3) 2,000 unit PO DAILY 04/05/20 04/05/20 History [Vitamin D3] Ergocalciferol (Vitamin D2) 50,000 unit PO SUWE 04/05/20 04/06/20 History [Drisdol] Metformin HCl [Glucophage] 500 mg PO BID 04/05/20 04/05/20 History Folic Acid 1 mg PO DAILY 04/06/20 04/06/20 History Lisinopril/Hydrochlorothiazide 1 tab PO BID 04/06/20 04/06/20 History [Lisinopril-Hctz 20-12.5 mg Tab*] dilTIAZem HCl [Diltiazem 180mg 180 mg PO DAILY 04/06/20 04/05/20 History 24Hr ER Cap] levoFLOXacin [Levaquin 500mg 500 mg PO DAILY 7 Days #7 tab 04/08/20 Rx tab] Allergies Allergy/AdvReac Type Severity Reaction Status Date / Time Penicillins Allergy Unknown Hives Verified 04/05/20 15:54 Exam Vital signs and Labs for Last 24 Hours: Temp Pulse Resp BP Pulse Ox 99.0 F 70 18 136/84 98 04/08/20 07:49 04/08/20 07:49 04/08/20 07:49 04/08/20 07:49 04/08/20 07:49 Laboratory Results - last 24 hr 04/07/20 10:55: POC Glucose 115 H 04/07/20 16:29: POC Glucose 125 H 04/07/20 20:03: POC Glucose 130 H 04/08/20 05:36: POC Glucose 117 H 04/08/20 06:20: WBC 8.2 D, RBC 4.21, Hgb 13.2, Hct 38.4, MCV 91.3, MCH 31.3 H, MCHC 34.3, RDW 14.0, Plt Count 110 L, MPV 9.9, Neut % (Auto) 77.3, Lymph % (Auto) 14.2, [place] % (Auto) 6.9, Eos % (Auto) 1.3, Baso % (Auto) 0.3, Neut # (Auto) 6.4, Lymph # (Auto) 1.2, [place] # (Auto) 0.6, Eos # (Auto) 0.1, Baso # (Auto) 0.0 04/08/20 06:20: Sodium 134 L, Potassium 3.3 L, Chloride 100, Carbon Dioxide 26 D, Anion Gap 11.3, BUN 18 H, Creatinine 0.90, Estimated Creat Clear 65, Estimated GFR 65, Est GFR ( Amer) 78 D, Glucose 101 H, Calcium 7.5 L I & O for Last 24 hours: Intake & Output 04/05/20 04/06/20 04/07/20 04/08/20 23:59 23:59 23:59 23:59 Intake Total 4286 / 4286 3220 / 3220 1986 Output Total 100 / 10
[2020-04-09 00:45] LABS: POC Glucose,Bedside 96 (70-110)
== END 2020-04-08 12:30 | disposition home or self-care (01) | DRG 690 ==
LOC: ER 17:46 → 2ND 04-06 06:35
PROVIDERS: Nurse Practitioner Family; Admitting Provider Family Medicine; Emergency Provider Emergency Medicine; PCP Emergency Medicine; Visit Provider Emergency Medicine
DX: N12 Tubulo-interstitial nephritis, not specified as acute or chronic (principal); R78.81 Bacteremia; Z68.43 Body mass index [BMI] 50.0-59.9, adult; B96.20 Unspecified Escherichia coli [E. coli] as the cause of diseases classified elsewhere; R32 Unspecified urinary incontinence; E66.01 Morbid (severe) obesity due to excess calories; I10 Essential (primary) hypertension; Z72.0 Tobacco use; E11.9 Type 2 diabetes mellitus without complications; J45.909 Unspecified asthma, uncomplicated; E78.5 Hyperlipidemia, unspecified; Z88.0 Allergy status to penicillin; Z79.84 Long term (current) use of oral hypoglycemic drugs; Z79.899 Other long term (current) drug therapy
CPT/HCPCS: 36415; 71045; 74177; 80048; 80053; 82962; 83605; 85007; 85025; 86328; 87040; 87077; 87086; 87186; 94640; 96365; 96375; 99285; Q9967

== ENCOUNTER → 2020-04-12 14:02 | Outpatient (CLI) | payer MEDICAID, SELFPAY ==
[2020-04-12 15:28] LABS: Chloride 93 mmol/L (98-107); Potassium 3.2 mmoL/L (3.5-5.1); Sodium 136 mmol/L (136-145)
[2020-04-12 15:31] LABS: Anion Gap 11.2 mEq/L (5-15); Blood Urea Nitrogen 9 mg/dl (7-17); Carbon Dioxide 35 mmol/L (22.0-30.0); Estimated Glomerular Filt Rate 74 ml/min (>60); GFR (African American) 90 ML/MIN (>60); Glucose 111 mg/dl (74-100)
== END ==
PROVIDERS: Visit Provider Nurse Practitioner Family
DX: R32 Unspecified urinary incontinence (principal); N12 Tubulo-interstitial nephritis, not specified as acute or chronic
CPT/HCPCS: 36415; 80048

== ENCOUNTER → 2020-04-15 17:07 | Outpatient (CLI) | payer MEDICAID, SELFPAY | PROVIDERS: Visit Provider Family Medicine | DX: N39.0 Urinary tract infection, site not specified (principal) | CPT/HCPCS: 87086; 87088; 87186 ==

== ENCOUNTER → 2020-05-17 12:26 | Outpatient (CLI) | payer MEDICAID, SELFPAY ==
[2020-05-17 14:41] LABS: Alanine Aminotransferase 24 U/L (12-78); Albumin Level 4.1 g/dl (3.5-5.0); Albumin/Globulin Ratio 1.2 (1.1-1.8); Alkaline Phosphatase 63 U/L (38-126); Anion Gap 15.5 mEq/L (5-15); Aspartate Amino Transferase 22 U/L (14-36); Bilirubin,Total 0.4 mg/dl (0.2-1.3); Blood Urea Nitrogen 34 mg/dl (7-17); Calcium 10.7 mg/dl (8.4-10.2); Carbon Dioxide 25 mmol/L (22.0-30.0); Chloride 101 mmol/L (98-107); Estimated Glomerular Filt Rate 24 ml/min (>60); GFR (African American) 29 ML/MIN (>60); Globulin 3.3 g/dL (1.3-3.2); Glucose 94 mg/dl (74-100); Potassium 4.5 mmoL/L (3.5-5.1); Sodium 137 mmol/L (136-145); Total Protein,Serum 7.4 g/dl (6.3-8.2)
== END ==
PROVIDERS: Visit Provider Nurse Practitioner Family
DX: E11.9 Type 2 diabetes mellitus without complications (principal); I10 Essential (primary) hypertension; Z79.84 Long term (current) use of oral hypoglycemic drugs
CPT/HCPCS: 36415; 80053

== ENCOUNTER → 2020-05-27 15:31 | Outpatient (CLI) | payer MEDICAID, SELFPAY ==
[2020-05-27 15:34] LABS: Microscopic, Urine URINE MICROSCOPIC (MICROSCOPIC)
[2020-05-27 16:10] LABS: Basophils # 0.1 K/mm3 (0-0.2); Eosinophils # 0.9 K/mm3 (0.0-0.4); Eosinophils % 8.7 % (0.1-12.0); Hematocrit 41.9 % (37.0-47.0); Hemoglobin 13.6 g/dL (12.2-16.2); Lymphocytes # 2.3 K/mm3 (0.7-4.5); Lymphocytes % 21.6 % (10-50); Mean Corpuscular HGB Conc 32.4 g/dL (31.8-35.4); Mean Corpuscular Hemoglobin 30.6 pg (27.0-31.2); Mean Corpuscular Volume 94.4 fl (81-99); Mean Platelet Volume 14.3 fl (7.4-10.4); Monocytes # 0.6 K/mm3 (0.1-1.0); Monocytes % 5.2 % (1.7-9.3); Neutrophils # 6.7 K/mm3 (1.8-7.8); Neutrophils % 63.4 % (37.0-80.0); Platelet Count 240 K/mm3 (142-424); Red Blood Count 4.43 M/mm3 (4.20-5.40); Red Cell Distribution Width 16.3 % (11.5-17.5); White Blood Count 10.6 K/mm3 (4.8-10.8)
[2020-05-27 16:27] LABS: Creatinine,Urine Random 98 mg/dL (Not Estab.)
[2020-05-27 17:03] LABS: Appearance,Urine CLEAR (Clear); Bilirubin,Urine Negative (Negative); Blood, Urine 2+ (Negative); Color,Urine YELLOW (Yellow); Glucose,Urine (UA) Negative (Negative); Ketones,Urine Negative (Negative); Leukocyte Esterase,Urine Negative (Negative); Nitrate,Urine Negative (Negative); Protein,Urine Negative (Negative); Specific Gravity, Urine 1.015 (1.005-1.030); Urobilinogen,Urine 0.2 EU/dl (0.2)
[2020-05-27 17:06] LABS: Alanine Aminotransferase 22 U/L (12-78); Albumin Level 4.3 g/dl (3.5-5.0); Albumin/Globulin Ratio 1.3 (1.1-1.8); Alkaline Phosphatase 76 U/L (38-126); Anion Gap 14.9 mEq/L (5-15); Aspartate Amino Transferase 24 U/L (14-36); Bilirubin,Total 0.4 mg/dl (0.2-1.3); Blood Urea Nitrogen 17 mg/dl (7-17); Calcium 10.6 mg/dl (8.4-10.2); Carbon Dioxide 24 mmol/L (22.0-30.0); Chloride 106 mmol/L (98-107); Estimated Glomerular Filt Rate 39 ml/min (>60); GFR (African American) 47 ML/MIN (>60); Globulin 3.3 g/dL (1.3-3.2); Glucose 70 mg/dl (74-100); Potassium 4.9 mmoL/L (3.5-5.1); Sodium 140 mmol/L (136-145); Total Protein,Serum 7.6 g/dl (6.3-8.2)
[2020-05-27 17:16] LABS: Intact Parathyroid Hormone 26.6 pg/mL (7.5-53.5)
[2020-05-27 17:22] LABS: 25-OH Vitamin D, Total 83.9 ng/mL (30-100)
[2020-05-27 17:28] LABS: Bacteria,Urine Trace /lpf; WBC,Urine 20-50 #/hpf (0-3)
== END ==
PROVIDERS: Internal Medicine Nephrology; Visit Provider Nurse Practitioner Family
DX: E11.9 Type 2 diabetes mellitus without complications (principal)
CPT/HCPCS: 36415; 80053; 81001; 82306; 82570; 83970; 84100; 84155; 85025; 87086; 87088; 87186

== ENCOUNTER → 2020-06-21 13:45 | Outpatient (POV) | payer MEDICAID, SELFPAY | PROVIDERS: Visit Provider Internal Medicine Nephrology | DX: Z00.00 Encounter for general adult medical examination without abnormal findings (principal) ==

== ENCOUNTER 2020-06-27 02:29 | Emergency (ER) | payer MEDICAID, SELFPAY ==
[2020-06-27 02:30] VITALS: BP 148/85; PULSE 79; RESP 18; TEMP 37; O2SAT 95; BMI 49.5
[2020-06-27 02:31] VITALS: BMI 49.5
--- NOTE | 2020-06-27 02:33 | ECG_ITS ---
APPROVED REPORT Exam: Resting ECG HR:81 bpm ECG Measurements Heart Rate [address] 164 P 59 QRSd 98 QRS 13 QT 406 T 88 QTc 471 Conclusion Normal sinus rhythm Prolonged QT Abnormal ECG Electronically signed by : Donald Stapleton, 06/27/2020 06:51:50
--- NOTE | 2020-06-27 02:33 | XR_ITS ---
PROCEDURE: XR CHEST 2V CLINICAL HISTORY: chest pain COMPARISON: CR CXR CHEST(2 VIEWS-NOT PORTABLE) from 05/22/2014 CR CXR CHEST(2 VIEWS-NOT PORTABLE) from 07/27/2014 CR XR CHEST PORTABLE from 04/05/2020 FINDINGS: The cardiomediastinal silhouette and pulmonary vascularity are within normal limits. There are subtle ill-defined opacities in left perihilar and infrahilar region which may indicate an early pneumonic infiltrate. The left upper lung field and right lung buckley are clear. There is no pleural fluid. No acute bony abnormalities. IMPRESSION: Question left perihilar and left lower lobe bronchopneumonia versus atelectasis Dictated by: Dr. Mic Wagner MD 06/27/2020 07:43 Dr. Mic Wagner MD in [place] 06/27/2020 07:43
[2020-06-27 02:53] LABS: Basophils % 0.2 % (0.1-2.0); Eosinophils # 0.3 K/mm3 (0.0-0.4); Hematocrit 45.9 % (37.0-47.0); Hemoglobin 15.5 g/dL (12.2-16.2); Lymphocytes # 1.7 K/mm3 (0.7-4.5); Lymphocytes % 12.4 % (10-50); Mean Corpuscular HGB Conc 33.8 g/dL (31.8-35.4); Mean Corpuscular Hemoglobin 31.6 pg (27.0-31.2); Mean Corpuscular Volume 93.4 fl (81-99); Mean Platelet Volume 8.7 fl (7.4-10.4); Monocytes # 0.9 K/mm3 (0.1-1.0); Monocytes % 6.7 % (1.7-9.3); Neutrophils # 10.8 K/mm3 (1.8-7.8); Neutrophils % 78.7 % (37.0-80.0); Platelet Count 227 K/mm3 (142-424); Red Blood Count 4.92 M/mm3 (4.20-5.40); Red Cell Distribution Width 14.9 % (11.5-17.5); White Blood Count 13.7 K/mm3 (4.8-10.8)
[2020-06-27 02:59] LABS: Anion Gap 13.7 mEq/L (5-15); Blood Urea Nitrogen 8 mg/dl (7-17); Calcium 9.7 mg/dl (8.4-10.2); Carbon Dioxide 24 mmol/L (22.0-30.0); Chloride 106 mmol/L (98-107); Creatinine Clearance Estimated 59 mL/min (50-200); Estimated Glomerular Filt Rate 57 ml/min (>60); GFR (African American) 69 ML/MIN (>60); Glucose 160 mg/dl (74-100); Potassium 3.7 mmoL/L (3.5-5.1); Sodium 140 mmol/L (136-145)
--- NOTE | 2020-06-27 03:01 | CT_ITS ---
PROCEDURE: CT ANGIO CHEST CLINCIAL INDICATION: Chest pain w/ SOA COMPARISON: No exams were available for comparison TECHNIQUE: IV Contrast: 70ML Isovue 370 Axial images obtained with sagittal and coronal reformats. All CT scans at the facility use one or more dose reduction, viz: automated exposure control, ma/kV adjustment per patient size (including targeted exams where dose is matched to indication, i.e. head), or iterative reconstruction technique. FINDINGS: HEART AND MEDIASTINAL STRUCTURES: Unremarkable. There is no pericardial effusion. The degree of vascular opacification is somewhat less than optimal but there is no definite pulmonary embolus identified. There is no evidence of aortic dissection. 1 LUNGS AND PLEURAL SPACES: The lung buckley are well expanded. There is minimal atelectasis in the lingula. No definite pneumonic infiltrate is seen. There is no pleural fluid. BONY STRUCTURES: There are mild multilevel degenerate changes of the thoracic spine. UPPER ABDOMEN: The stomach is moderately distended with ingested food particles. ADDITIONAL FINDINGS: No other significant abnormalities. IMPRESSION: No definite pulmonary embolus identified, very minimal left perihilar and lingular atelectasis noted Dictated by: Dr. Mic Wagner MD 06/27/2020 08:03 Dr. Mic Wagner MD in [place] 06/27/2020 08:03
[2020-06-27 03:16] LABS: Troponin I < 0.01 ng/ml (0.00-0.034)
[2020-06-27 06:23] LABS: Troponin I < 0.01 ng/ml (0.00-0.034)
--- NOTE | 2020-06-27 06:30 | HMH.EDGENADL ---
ED Disposition Clinical Impression: Chest pain, Atypical chest pain Disposition: Home Health Service Condition on Discharge: Good Instructions: DI for Atypical Chest Pain Additional Instructions: Please follow-up with primary care provider and get an outpatient stress test within the next 2 to 4 weeks. Referrals: Rubén Mott MD [Primary Care Provider] - - Critical Care Critical Care Time: No Attestation: On 06/27/20, the high probability of a clinically significant, sudden or life threatening deterioration of the following system(s) required my full and direct attention, intervention and personal management. The time I documented below is in addition to time spent performing reported procedures but includes the following listed in this critical care notation. Medical Decision Making - Medical Records Medical records reviewed: Yes: I reviewed the patient's medical records. - Robert Inquiry Pt receiving controlled substance: No Vital Signs: 06/27/20 02:30 Temperature 98.6 F Temperature Source Oral Pulse Rate [Apical] 79 Respiratory Rate 18 Blood Pressure [Right Arm] 148/85 H Blood Pressure Mean [Right Arm] 106 Blood Pressure Source [Right Arm] Automatic Cuff Blood Pressure Position [Right Arm] Supine 02 Sat by Pulse Oximetry 95 Oxygen Delivery Method Room Air - Lab Data Lab results reviewed: Yes: I reviewed the patient's lab results. Lab Results 06/27/20 02:45: WBC 13.7 H, RBC 4.92, Hgb 15.5, Hct 45.9, MCV 93.4, MCH 31.6 H, MCHC 33.8, RDW 14.9, Plt Count 227, MPV 8.7, Neut % (Auto) 78.7, Lymph % (Auto) 12.4, [place] % (Auto) 6.7, Eos % (Auto) 2.0, Baso % (Auto) 0.2, Neut # (Auto) 10.8 H, Lymph # (Auto) 1.7, [place] # (Auto) 0.9, Eos # (Auto) 0.3, Baso # (Auto) 0.0 06/27/20 02:45: Sodium 140, Potassium 3.7, Chloride 106, Carbon Dioxide 24, Anion Gap 13.7, BUN 8, Creatinine 1.00, Estimated Creat Clear 59, Estimated GFR 57 L, Est GFR ( Amer) 69, Glucose 160 H, Calcium 9.7, Troponin I < 0.01 06/27/20 05:45: Troponin I < 0.01 Result diagrams: 06/27/20 02:45 06/27/20 02:45 Orders (Tests/Meds): ED MEDICATIONS Discontinued Medications Generic Name Dose Route Start Last Admin Trade Name Murali PRN Reason Stop Dose Admin Aspirin 324 mg 06/27/20 02:33 06/27/20 02:34 Aspirin 81mg Chewable Tablet PO 06/27/20 02:34 324 mg ONCE ONE Administration Iopamidol 70 ml 06/27/20 04:09 06/27/20 04:02 Iopamidol-370 (76%);100ml Bottle IV 06/27/20 04:10 70 ml ONCE ONE Administration Nitroglycerin 0.4 mg 06/27/20 02:33 06/27/20 02:34 Nitroglycerin 0.4mg Sl Tablet SL 06/27/20 02:34 1 tab ONCE ONE Administration Sodium Chloride 40 ml 06/27/20 04:09 06/27/20 04:02 0.9 % Sodium Chloride 50 Ml Vial IV 06/27/20 04:10 40 ml ONCE ONE Administration Sodium Chloride 10 ml 06/27/20 04:09 06/27/20 04:11 Sodium Chloride 0.9% 10ml Syr (Rad Only) IV 06/27/20 04:10 10 ml ONCE ONE Administration ORDERS Category Date Time Status CTA Chest [CT angio chest] Stat Cat Scan 06/27/20 03:01 Taken XR chest 2V Stat Exams 06/27/20 02:33 Taken Troponin I Q3H Lab 06/27/20 08:45 Ordered - CT Data CT Scan: Chest Time Received: 06:00 Preliminary Findings: Normal/NAD - ECG Data Tracing #1 I reviewed this ECG and interpreted as documented below: Normal Sinus Rhythm: Yes - DECLAN Score for Non-Stemi Age of Patient: 50-59 years old Heart Rate: 50-69 bpm Systolic Blood Pressure: 120-139 mmhg Serum Creatinine: 0.40-0.79 mg/dl CHF [place] Class: I-No CHF Other Risk Factors: None Non-Stemi Risk Score: 82 Risk Stratification: 1-108 = Low Risk Medical Decision Narrative: Patient had 2 troponins brought up by 3 hours both of more within normal limits. General Adult HPI - General Chief complaint: Chest Pain Stated complaint: Chest Pain Time Seen by Provider: 11/15/20 06:30 Mode of Arrival: Ambulatory Source of Information: Patient Limitations: No L
[2020-06-27 06:42] VITALS: BP 165/96; PULSE 83; RESP 18; TEMP 36.7; O2SAT 94
== END 2020-06-27 06:44 | disposition home health service (06) ==
PROVIDERS: Emergency Provider Family Medicine; PCP Emergency Medicine
DX: R07.89 Other chest pain (principal); E11.65 Type 2 diabetes mellitus with hyperglycemia; Z88.0 Allergy status to penicillin; I10 Essential (primary) hypertension; F17.210 Nicotine dependence, cigarettes, uncomplicated; E78.5 Hyperlipidemia, unspecified; K21.9 Gastro-esophageal reflux disease without esophagitis; Z79.899 Other long term (current) drug therapy
CPT/HCPCS: 71046; 71275; 80048; 84484; 85025; 93005; 99282; Q9967

== ENCOUNTER → 2021-01-06 11:06 | Outpatient (CLI) | payer MEDICAID, SELFPAY ==
[2021-01-06 11:09] LABS: Microscopic, Urine URINE MICROSCOPIC (MICROSCOPIC)
[2021-01-06 11:29] LABS: Basophils # 0.1 K/mm3 (0-0.2); Basophils % 0.6 % (0.1-2.0); Eosinophils # 0.2 K/mm3 (0.0-0.4); Eosinophils % 2.3 % (0.1-12.0); Hematocrit 45.3 % (37.0-47.0); Hemoglobin 15.6 g/dL (12.2-16.2); Lymphocytes # 2.2 K/mm3 (0.7-4.5); Lymphocytes % 21.2 % (10-50); Mean Corpuscular HGB Conc 34.5 g/dL (31.8-35.4); Mean Corpuscular Hemoglobin 30.4 pg (27.0-31.2); Mean Platelet Volume 8.2 fl (7.4-10.4); Monocytes # 0.6 K/mm3 (0.1-1.0); Monocytes % 6.1 % (1.7-9.3); Neutrophils # 7.3 K/mm3 (1.8-7.8); Neutrophils % 69.8 % (37.0-80.0); Platelet Count 209 K/mm3 (142-424); Red Blood Count 5.15 M/mm3 (4.20-5.40); Red Cell Distribution Width 14.1 % (11.5-17.5); White Blood Count 10.5 K/mm3 (4.8-10.8)
[2021-01-06 11:44] LABS: Appearance,Urine CLEAR (Clear); Bilirubin,Urine Negative (Negative); Blood, Urine 2+ (Negative); Color,Urine YELLOW (Yellow); Glucose,Urine (UA) Negative (Negative); Ketones,Urine Negative (Negative); Leukocyte Esterase,Urine 1+ (Negative); Nitrate,Urine Negative (Negative); Protein,Urine Negative (Negative); Specific Gravity, Urine <= 1.005 (1.005-1.030); Urobilinogen,Urine 0.2 EU/dl (0.2)
[2021-01-06 11:55] LABS: Bacteria,Urine 1+ /lpf
[2021-01-06 12:00] LABS: Creatinine,Urine Random 38 mg/dL (Not Estab.)
[2021-01-06 12:49] LABS: Albumin Level 4.3 g/dl (3.5-5.0); Anion Gap 11.6 mEq/L (5-15); Blood Urea Nitrogen 11 mg/dl (7-17); Calcium 9.5 mg/dl (8.4-10.2); Carbon Dioxide 28 mmol/L (22.0-30.0); Chloride 106 mmol/L (98-107); Estimated Glomerular Filt Rate 65 ml/min (>60); GFR (African American) 78 ML/MIN (>60); Glucose 101 mg/dl (74-100); Phosphorous 2.8 mg/dl (2.5-4.5); Potassium 4.6 mmoL/L (3.5-5.1); Sodium 141 mmol/L (136-145)
[2021-01-06 13:01] LABS: Intact Parathyroid Hormone 53.5 pg/mL (7.5-53.5)
[2021-01-06 13:08] LABS: 25-OH Vitamin D, Total 82.9 ng/mL (30-100)
[2021-01-07 14:12] LABS: Calcium, Ionized 5.4 mg/dL (4.5-5.6)
== END ==
PROVIDERS: Visit Provider Internal Medicine Nephrology
DX: N18.2 Chronic kidney disease, stage 2 (mild) (principal)
CPT/HCPCS: 36415; 80069; 81001; 82306; 82330; 82570; 83970; 84155; 85025; 87086; 87088; 87186

== ENCOUNTER → 2021-01-13 14:15 | Outpatient (POV) | payer MEDICAID, SELFPAY | PROVIDERS: Visit Provider Internal Medicine Nephrology | DX: Z00.00 Encounter for general adult medical examination without abnormal findings (principal) ==

== ENCOUNTER → 2021-12-21 09:44 | Outpatient (CLI) | payer MEDICAID, SELFPAY | PROVIDERS: Visit Provider Surgery | DX: Z01.812 Encounter for preprocedural laboratory examination (principal); Z11.52 Encounter for screening for COVID-19; Z12.11 Encounter for screening for malignant neoplasm of colon; B96.1 Klebsiella pneumoniae [K. pneumoniae] as the cause of diseases classified elsewhere | CPT/HCPCS: 87086; 87088; 87186; C9803; U0003; U0005 ==

== ENCOUNTER 2021-12-23 12:38 | Day surgery (SDC) | payer MEDICAID, SELFPAY ==
[2021-12-21 12:39] VITALS: BMI 50.5
[2021-12-23] VITALS (7 sets, daily range): BP systolic 94–179; BP diastolic 58–100; PULSE 67–81; RESP 18–22; TEMP 36.2–37.1; O2SAT 93–98
--- NOTE | 2021-12-23 12:54 | HMH.ANESCL ---
[facility] Anesthesia Checklist - Patient Identification Patient Identification: Arm Band - Structural Data Admitted From: Home Planned Operative Procedure/s: Colonoscopy Consent for Planned Operative Procedure(s) Verified: Yes - NPO Status Verified Time NPO: 00:00 - Airway Assessment C-Spine Mobility Assessed: Yes TMJ Mobility Assessed: Yes Dentition: Edentulous - Neurological Assessment Level of Consciousness: Awake Hx Seizures: No Numbness or tingling in extremities: No - Anesthesia Plan Anesthesia Risk discussed: Yes Anesthesia Plan: Verified ASA Class: III Anesthesia Type: MAC [facility] History I have reviewed the patient's past medical history: Yes Medical History: Reports:: Anxiety, Asthma, Depression, Diabetes Mellitus Type 2, Gastroesophageal Reflux Disease(GERD), Hyperlipidemia, Hypertension Denies:: Cancer, Diabetes Mellitus Type 1, Internal Pacemaker, MRSA *Have you ever received a pneumonia vaccine?: No *Have you received a flu vaccine this season?: No Other Medical History: Reports: Arthritis, Other Anesthesia experience/problems:: None Laterality Cases: Left: Carpal Tunnel Release, Bilateral: Myringotomy (Ear Tubes), Tonsillectomy Other Surgeries: Yes: No Previous Surgery, Tubal Ligation, Other. No: Pacemaker Amputation: No Fractures: No - *Social History Last grade of school completed: High school graduate Smoking Status: Current every day smoker Tobacco Type: cigarettes # Packs/Day (cigarettes): 1 Alcohol Intake: never Substance Use Type: marijuana *Occupational Status:: unemployed Housing: house Household Members: spouse *Travel in the last 8 weeks: None - Psychiatric History Pschychiatric History:: Reports:: Anxiety Family Hx:: Heart Attack, Cancer, Coronary Artery Disease, Other, Hypertension, Diabetes
[2021-12-23 13:06] LABS: POC Glucose,Bedside 105 (70-110)
--- NOTE | 2021-12-23 14:31 | HMH.SCOPE ---
- Procedure: Date: 12/23/21 Patient Date of :: 1965 Procedure Performed:: Total colonoscopy with numerous polypectomy Indications:: Patient is a 56-year-old female from [facility] with history of anxiety, asthma, diabetes, GERD, hyperlipidemia, hypertension, tobacco abuse, BMI greater than 50 referred by Cliff Chandler for screening colonoscopy for positive Cologuard. No prior history of colonoscopy. No known family history of colon cancer. Performing Provider:: Nirmal Sandhu MD Referring Provider:: Cliff Driscoll Sedation:: MAC sedation Procedure:: Patient was taken to endoscopy procedure room. She was positioned in lateral decubitus position. Adequate intravenous sedation was achieved with anesthesia titration of propofol. Variable stiffness Olympus colonoscope was inserted via the anus. Was advanced to the cecum. Overall colonic preparation was good. However, there was some particulate stool and undigested vegetable matter within the cecum. Ileocecal valve and appendiceal orifice were clearly identified. Colonoscope was slowly withdrawn through the colon with careful surveillance. Numerous polyps were encountered. These were removed by a variety of technique. Please see comment below for details. She had some sigmoid diverticulosis. Retroflexion within the rectum revealed no evidence of any pathologic internal hemorrhoids. Colonoscope was withdrawn. Findings:: She had approximately 19 polyps removed with various size. Please see comment below. Sigmoid diverticulosis Specimens:: Polyps Recommendations:: Follow-up colonoscopy pending pathology. Likely within 2 years. Complications:: None immediately apparent Estimated blood obtained (mL): 3 Comment:: In the ascending colon there was a small polyp removed with cold snare Tiny hepatic flexure polyp removed with biopsy forceps Moderate, 8 to 10 mm, transverse colon polyp removed with cold snare Relatively large, 18 to 20 mm, mid transverse colon polyp removed with hot snare. Site marked with Nilda ink for future reference. This required retrieval using the Terrell net to macerate the polyp and remove it in a piecemeal fashion. She had 2 tiny diminutive mid transverse colon polyps removed with biopsy forceps. In the distal transverse there were 3 small polyps removed with cold snare. The descending: There was a small polyp removed with cold snare. Proximal sigmoid colon there were a couple of polyps removed with biopsy forceps. The rectosigmoid region there was a moderate large approximately 15 mm polyp removed with hot snare. Hemoclip was placed to assure hemostasis. In the distal sigmoid colon there was a several millimeter adenomatous appearing polyp removed with cold snare. This was unable to be retrieved for pathologic analysis. There were multiple rectosigmoid hyperplastic appearing polyps. 3 of these larger ones in the proximal rectum were removed with cold snare. In the distal rectum there was a adenomatous appearing polyp removed with cold snare. She had a total of 19 polyps removed. The several millimeter adenomatous appearing polyp in the distal sigmoid colon was unable to be retrieved. The most notable polyps were mid transverse colon polyp which measured approximately 18 to 20 mm and rectosigmoid polyp which measured approximately 15 mm.
== END 2021-12-23 15:10 | disposition home or self-care (01) ==
LOC: OUTP 12:39
PROVIDERS: PCP Nurse Practitioner Family; Visit Provider Surgery
PROC: 0DJD8ZZ Inspection of Lower Intestinal Tract, Via Natural or Artificial Opening Endoscopic (ICD-10-PCS; CPT 45385; principal; 2021-12-23 13:30)
DX: K63.5 Polyp of colon (principal); K57.30 Diverticulosis of large intestine without perforation or abscess without bleeding; K62.1 Rectal polyp; J45.909 Unspecified asthma, uncomplicated; E11.9 Type 2 diabetes mellitus without complications; E78.5 Hyperlipidemia, unspecified; I10 Essential (primary) hypertension; M19.90 Unspecified osteoarthritis, unspecified site; F41.9 Anxiety disorder, unspecified; F32.A Depression, unspecified; K21.9 Gastro-esophageal reflux disease without esophagitis; Z88.0 Allergy status to penicillin
CPT/HCPCS: 45385; 45380; 82962; J2704

== ENCOUNTER → 2022-02-24 06:10 | Outpatient (CLI) | payer MEDICAID, SELFPAY ==
[2022-02-23 17:26] LABS: Basophils # 0.1 K/mm3 (0-0.2); Basophils % 1.6 % (0.1-2.0); Eosinophils # 0.2 K/mm3 (0.0-0.4); Eosinophils % 2.4 % (0.1-12.0); Hematocrit 48.3 % (37.0-47.0); Hemoglobin 16.1 g/dL (12.2-16.2); Lymphocytes # 2.1 K/mm3 (0.7-4.5); Lymphocytes % 28.7 % (10-50); Mean Corpuscular HGB Conc 33.2 g/dL (31.8-35.4); Mean Corpuscular Hemoglobin 30.7 pg (27.0-31.2); Mean Corpuscular Volume 92.4 fl (81-99); Monocytes # 0.5 K/mm3 (0.1-1.0); Monocytes % 7.5 % (1.7-9.3); Neutrophils # 4.3 K/mm3 (1.8-7.8); Neutrophils % 59.7 % (37.0-80.0); Platelet Count 197 K/mm3 (142-424); Red Blood Count 5.23 M/mm3 (4.20-5.40); Red Cell Distribution Width 14.3 % (11.5-17.5); White Blood Count 7.1 K/mm3 (4.8-10.8)
[2022-02-23 17:36] LABS: Alanine Aminotransferase 28 U/L (12-78); Albumin/Globulin Ratio 1.2 (1.1-1.8); Alkaline Phosphatase 80 U/L (38-126); Anion Gap 13.3 mEq/L (5-15); Aspartate Amino Transferase 30 U/L (14-36); Bilirubin,Total 0.2 mg/dl (0.2-1.3); Blood Urea Nitrogen 8 mg/dl (7-17); Calcium 9.8 mg/dl (8.4-10.2); Carbon Dioxide 24 mmol/L (22.0-30.0); Chloride 104 mmol/L (98-107); Chol/HDL Ratio 3.5 (1-3.5); Cholesterol 128 mg/dl (140-200); Estimated Glomerular Filt Rate 74 ml/min (>60); GFR (African American) 89 ML/MIN (>60); Globulin 3.3 g/dL (1.3-3.2); Glucose 101 mg/dl (74-100); HDL Cholesterol 37 mg/dl (40-60); Potassium 4.3 mmoL/L (3.5-5.1); Sodium 137 mmol/L (136-145); Total Protein,Serum 7.3 g/dl (6.3-8.2); Triglycerides 140 mg/dl (30-150); VLDL Cholesterol 28 mg/dL (0-40)
[2022-02-23 17:46] LABS: Direct LDL Cholesterol 70.63 mg/dL (100-129)
[2022-02-23 17:56] LABS: Hemoglobin A1C 5.7 % (4.0-6.0)
[2022-02-23 20:05] LABS: 25-OH Vitamin D, Total 85.3 ng/mL (30-100)
[2022-02-25 14:12] LABS: C-Peptide 9.5 ng/mL (1.1-4.4)
== END ==
PROVIDERS: PCP Physician Assistant; Visit Provider Physician Assistant
DX: E11.9 Type 2 diabetes mellitus without complications (principal); F41.1 Generalized anxiety disorder; E66.01 Morbid (severe) obesity due to excess calories; Z68.43 Body mass index [BMI] 50.0-59.9, adult; Z79.84 Long term (current) use of oral hypoglycemic drugs; Z79.899 Other long term (current) drug therapy
CPT/HCPCS: 80053; 80061; 82043; 82306; 83036; 84443; 84681; 85025

== ENCOUNTER → 2022-03-17 13:08 | Outpatient (CLI) | payer MEDICAID, SELFPAY ==
[2022-03-17 13:21] LABS: Microscopic, Urine URINE MICROSCOPIC (MICROSCOPIC)
[2022-03-17 14:04] LABS: Basophils # 0.1 K/mm3 (0-0.2); Basophils % 1.2 % (0.1-2.0); Eosinophils # 0.2 K/mm3 (0.0-0.4); Eosinophils % 2.1 % (0.1-12.0); Hemoglobin 16.5 g/dL (12.2-16.2); Lymphocytes # 1.8 K/mm3 (0.7-4.5); Lymphocytes % 21.4 % (10-50); Mean Corpuscular HGB Conc 32.9 g/dL (31.8-35.4); Mean Corpuscular Hemoglobin 30.5 pg (27.0-31.2); Mean Corpuscular Volume 92.5 fl (81-99); Monocytes # 0.7 K/mm3 (0.1-1.0); Monocytes % 8.2 % (1.7-9.3); Neutrophils # 5.5 K/mm3 (1.8-7.8); Platelet Count 217 K/mm3 (142-424); Red Cell Distribution Width 14.2 % (11.5-17.5); White Blood Count 8.2 K/mm3 (4.8-10.8)
[2022-03-17 14:17] LABS: Alanine Aminotransferase 30 U/L (12-78); Albumin Level 4.2 g/dl (3.5-5.0); Albumin/Globulin Ratio 1.3 (1.1-1.8); Alkaline Phosphatase 79 U/L (38-126); Anion Gap 12.6 mEq/L (5-15); Aspartate Amino Transferase 34 U/L (14-36); Bilirubin,Total 0.4 mg/dl (0.2-1.3); Blood Urea Nitrogen 10 mg/dl (7-17); Calcium 9.7 mg/dl (8.4-10.2); Carbon Dioxide 23 mmol/L (22.0-30.0); Chloride 106 mmol/L (98-107); Chol/HDL Ratio 3.7 (1-3.5); Cholesterol 97 mg/dl (140-200); Estimated Glomerular Filt Rate 64 ml/min (>60); GFR (African American) 78 ML/MIN (>60); Globulin 3.3 g/dL (1.3-3.2); Glucose 118 mg/dl (74-100); HDL Cholesterol 26 mg/dl (40-60); Potassium 4.6 mmoL/L (3.5-5.1); Sodium 137 mmol/L (136-145); Total Protein,Serum 7.5 g/dl (6.3-8.2); Triglycerides 129 mg/dl (30-150); VLDL Cholesterol 26 mg/dL (0-40)
[2022-03-17 14:17] LABS: Phosphorous 3.5 mg/dl (2.5-4.5)
[2022-03-17 14:20] LABS: Appearance,Urine SL CLOUDY (Clear); Bilirubin,Urine Negative (Negative); Blood, Urine TRACE-I (Negative); Color,Urine AMBER (Yellow); Glucose,Urine (UA) Negative (Negative); Ketones,Urine Negative (Negative); Leukocyte Esterase,Urine 3+ (Negative); Nitrate,Urine Negative (Negative); Protein,Urine Negative (Negative); Specific Gravity, Urine 1.015 (1.005-1.030)
[2022-03-17 14:29] LABS: Intact Parathyroid Hormone 82.5 pg/mL (7.5-53.5)
[2022-03-17 14:30] LABS: Hemoglobin A1C 6.1 % (4.0-6.0)
[2022-03-17 14:30] LABS: Creatinine,Urine Random 152 mg/dL (Not Estab.)
[2022-03-17 14:32] LABS: Microalbumin/Creatinine Ratio 35.1
[2022-03-17 14:35] LABS: 25-OH Vitamin D, Total 107 ng/mL (30-100)
[2022-03-17 14:36] LABS: T4 (Thyroxine) 12.6 ug/dl (5.53-11.0)
[2022-03-17 14:50] LABS: Thyroid Stimulating Hormone 2.38 uIU/mL (0.465-4.68)
[2022-03-17 15:35] LABS: Bacteria,Urine 4+ /lpf; RBC,Urine Occasional #/hpf (0-3)
[2022-03-19 08:13] LABS: Direct LDL Cholesterol 50 mg/dL (100-129)
== END ==
PROVIDERS: Nurse Practitioner Family; PCP Physician Assistant; Visit Provider Internal Medicine Nephrology
DX: E11.9 Type 2 diabetes mellitus without complications (principal); N39.0 Urinary tract infection, site not specified; R79.1 Abnormal coagulation profile; E67.3 Hypervitaminosis D; B96.29 Other Escherichia coli [E. coli] as the cause of diseases classified elsewhere
CPT/HCPCS: 36415; 80053; 80061; 81001; 82043; 82306; 82570; 83036; 83970; 84100; 84155; 84436; 84443; 85025; 87086; 87088; 87186

== ENCOUNTER 2022-04-12 11:36 | Emergency (ER) | payer MEDICAID, SELFPAY ==
--- NOTE | 2022-04-12 11:48 | EXP.UTC ---
Discharge Plan Disposition Patient Disposition: Home, Self-Care Condition: Good Prescriptions Prescriptions: New phenazopyridine 200 mg Tablet 200 mg PO TID Qty: 6 0RF sulfamethoxazole-trimethoprim [Bactrim DS] 800-160 mg Tablet 1 tab PO BID Qty: 20 0RF ondansetron 4 mg Tablet,Disintegrating 4 mg PO Q8H PRN (Reason: Nausea) Qty: 20 0RF No Action buspirone 5 mg tablet 5 mg PO TID Qty: 90 2RF (DME) lancets [FreeStyle Lancets] 28 gauge misc See Rx Instructions .ROUTE .COMPLEX Qty: 100 0RF Dose Instruction: USE DIRECTED Rx Instructions: USE DIRECTED venlafaxine 150 mg capsule,extended release 24hr See Rx Instructions .ROUTE .COMPLEX Qty: 90 1RF Dose Instruction: TAKE 1 CAPSULE BY MOUTH DAILY FOR ANXIETY Rx Instructions: TAKE 1 CAPSULE BY MOUTH DAILY FOR ANXIETY diltiazem HCl 180 mg capsule,extended release 24hr 180 mg PO DAILY 90 Days Qty: 90 0RF linagliptin 5 mg tablet 5 mg PO DAILY Qty: 90 0RF simvastatin 20 mg tablet 20 mg PO HS Qty: 90 0RF famotidine 20 mg tablet 20 mg PO DAILY Qty: 90 3RF ergocalciferol (vitamin D2) 1,250 mcg (50,000 unit) capsule See Rx Instructions .ROUTE .COMPLEX Qty: 8 2RF Dose Instruction: Take 1 Capsule by mouth twice weekly. Rx Instructions: Take 1 Capsule by mouth twice weekly. nitrofurantoin monohyd/m-cryst [Macrobid] 100 mg capsule 100 mg PO Q12H 10 Days Qty: 20 0RF Rx Instructions: must administer with a meal/food cholecalciferol (vitamin D3) 50 mcg (2,000 unit) capsule See Rx Instructions .ROUTE .COMPLEX Qty: 90 1RF Dose Instruction: Take 1 Capsule by mouth once daily for supplement. Rx Instructions: Take 1 Capsule by mouth once daily for supplement. albuterol sulfate 8.5 GM HFA aerosol inhaler See Rx Instructions .Route .COMPLEX Rx Instructions: Use 2 puffs every 6 hours as needed for shortness of breath or wheezing oxybutynin chloride 5 MG tablet 5 mg PO TID Referrals Follow up/Referrals: Rubén Mott MD [Primary Care Provider] - See instructions Activity Restrictions/Add. Instructions Additional Instructions/Restrictions: Drink plenty of fluids. Take tylenol or ibuprofen for pain or fever. Take the medications as directed. Follow up with your regular doctor. GO TO THE ER FOR ANY WORSENING SYMPTOMS The pyridium will make your urine turn orange, this is an expected side effect. It will stain your clothes if it comes into contact with them. We will culture the urine. That will tell what bacteria is causing your infection and which antibiotics will treat it best. Sometimes the first antibiotic we prescribe turns out to not work against different bacteria. So, make sure you follow up within 3 days if you are not getting better. Clinical Impressions Clinical Impression: UTI (urinary tract infection) Instructions Patient Instructions: Urinary Tract Infection, Urine Culture, Phenazopyridine Discharge ED Provider: Anton Hoang [facility] General Stated complaint: fever Time Seen by Provider: 04/12/22 11:50 History of Present Illness Provider Complaint: She c/o dysuria and urinary frequency for the past 2 days. Related Data Home Medications Medication Instructions Recorded Confirmed albuterol sulfate 90 mcg/actuation See Rx Instructions .Route 12/21/21 02/23/22 aerosol inhaler .COMPLEX Asthma oxybutynin chloride 5 mg tablet 5 mg PO TID bladd 12/21/21 02/23/22 Previous Rx's Medication Instructions Recorded buspirone 5 mg tablet 5 mg PO TID #90 tabs 02/23/22 lancets 28 gauge (FreeStyle ##100 02/24/22 Lancets) diltiazem HCl 180 mg 180 mg PO DAILY High blood 02/27/22 capsule,extended release 24 hr pressure 90 days #90 caps venlafaxine 150 mg See Rx Instructions .Route 02/27/22 capsule,extended release 24 hr .COMPLEX #90 caps linagliptin 5 mg tablet 5 mg PO DAILY Diab
[2022-04-12 12:11] VITALS: BP 156/73; PULSE 97; RESP 16; TEMP 39.4; O2SAT 18; BMI 59.7
[2022-04-12 12:16] LABS: UTC Strep Screen (Rapid) Negative (Negative)
[2022-04-12 12:17] LABS: Apearance,Urine Turbid (Clear); Color,Urine Yellow (Yellow); Glucose,Urine (UA) Negative (Negative); Ketones,Urine Negative (Negative); Protein,Urine 1+ (Negative)
[2022-04-12 12:18] LABS: Bilirubin,Urine Negative (Negative); Blood, Urine 2+ (Negative); UTC Leukocyte Esterase,Urine 1+ (Negative); UTC Nitrate,Urine Positive (Negative); Urobilinogen,Urine 1 EU/dl (0.2)
[2022-04-12 12:55] VITALS: BP 156/73; PULSE 90; RESP 16; TEMP 37.5
[2022-04-12 15:07] LABS: Adenovirus,PCR Not Detected (NotDetected); Bordetella Pertussis Not Detected (NotDetected); Chlamydophila Pneumoniae, PCR Not Detected (NotDetected); Coronavirus 19, PCR Not Detected (NotDetected); Coronavirus 229E Not Detected (NotDetected); Coronavirus NL63 Not Detected (NotDetected); Coronavirus OC43 Not Detected (NotDetected); Coronovirus HKU1,PCR Not Detected (NotDetected); Human Metapneumovirus Not Detected (NotDetected); Influenza A, PCR Not Detected (NotDetected); Influenza AH1, 2009 Not Detected (NotDetected); Influenza AH1, PCR Not Detected (NotDetected); Influenza AH3,PCR Not Detected (NotDetected); Influenza B, PCR Not Detected (NotDetected); Mycoplasma Pneumoniae, PCR Not Detected (NotDetected); Parainfluenza 1, PCR Not Detected (NotDetected); Parainfluenza 2, PCR Not Detected (NotDetected); Parainfluenza 3, PCR Not Detected (NotDetected); Parainfluenza 4, PCR Not Detected (NotDetected); Respiratory Syncytial Virus Not Detected (NotDetected); Rhinovirus/Enterovirus Not Detected (NotDetected)
== END 2022-04-12 12:59 | disposition home or self-care (01) ==
LOC: ER 11:44 → UTC 11:46
PROVIDERS: Emergency Provider Nurse Practitioner Family; PCP Emergency Medicine
DX: N39.0 Urinary tract infection, site not specified (principal); B96.20 Unspecified Escherichia coli [E. coli] as the cause of diseases classified elsewhere
CPT/HCPCS: 81003; 87086; 87088; 87186; 87581; 87632; 87798; 87880; 99212; C9803; G0463; U0003; U0005

== ENCOUNTER → 2023-01-16 23:25 | Outpatient (CLI) | payer MEDICAID, SELFPAY ==
[2023-01-16 19:53] LABS: Basophils # 0.1 K/mm3 (0-0.2); Basophils % 0.7 % (0.1-2.0); Eosinophils # 0.2 K/mm3 (0.0-0.4); Eosinophils % 2.3 % (0.1-12.0); Hemoglobin 15.5 g/dL (12.2-16.2); Lymphocytes % 26.9 % (10-50); Mean Corpuscular Hemoglobin 29.1 pg (27.0-31.2); Mean Platelet Volume 10.4 fl (7.4-10.4); Monocytes # 0.7 K/mm3 (0.1-1.0); Monocytes % 10.1 % (1.7-9.3); Neutrophils # 4.4 K/mm3 (1.8-7.8); Neutrophils % 60.1 % (37.0-80.0); Platelet Count 193 K/mm3 (142-424); Red Blood Count 5.34 M/mm3 (4.20-5.40); Red Cell Distribution Width 14.9 % (11.5-17.5); White Blood Count 7.3 K/mm3 (4.8-10.8)
[2023-01-16 20:08] LABS: Alanine Aminotransferase 30 U/L (12-78); Albumin Level 3.9 g/dl (3.5-5.0); Albumin/Globulin Ratio 1.2 (1.1-1.8); Alkaline Phosphatase 113 U/L (38-126); Anion Gap 17.5 mEq/L (5-15); Aspartate Amino Transferase 33 U/L (14-36); Bilirubin,Total 0.4 mg/dl (0.2-1.3); Blood Urea Nitrogen 7 mg/dl (7-17); Calcium 9.1 mg/dl (8.4-10.2); Carbon Dioxide 23 mmol/L (22.0-30.0); Chloride 102 mmol/L (98-107); Chol/HDL Ratio 4.5 (1-3.5); Cholesterol 121 mg/dl (140-200); Estimated Glomerular Filt Rate 74 ml/min (>60); GFR (African American) 89 ML/MIN (>60); Globulin 3.2 g/dL (1.3-3.2); Glucose 157 mg/dl (74-100); HDL Cholesterol 27 mg/dl (40-60); Potassium 4.5 mmoL/L (3.5-5.1); Sodium 138 mmol/L (136-145); Total Protein,Serum 7.1 g/dl (6.3-8.2); Triglycerides 325 mg/dl (30-150); VLDL Cholesterol 65 mg/dL (0-40)
[2023-01-16 20:13] LABS: Hemoglobin A1C 6.8 % (4.0-6.0)
[2023-01-16 20:21] LABS: Direct LDL Cholesterol 61.76 mg/dL (100-129)
[2023-01-16 20:36] LABS: 25-OH Vitamin D, Total 66.9 ng/mL (30-100)
[2023-01-16 20:52] LABS: Thyroid Stimulating Hormone 1.85 uIU/mL (0.465-4.68)
[2023-01-16 21:04] LABS: Creatinine,Urine Random 148 mg/dL (Not Estab.)
[2023-01-16 21:06] LABS: Microalbumin/Creatinine Ratio 78.7
== END ==
PROVIDERS: PCP Family Medicine; Visit Provider Family Medicine
DX: Z00.00 Encounter for general adult medical examination without abnormal findings (principal); E11.9 Type 2 diabetes mellitus without complications; I10 Essential (primary) hypertension; M19.90 Unspecified osteoarthritis, unspecified site; L03.90 Cellulitis, unspecified; E66.9 Obesity, unspecified; Z68.43 Body mass index [BMI] 50.0-59.9, adult; Z79.899 Other long term (current) drug therapy; Z79.84 Long term (current) use of oral hypoglycemic drugs
CPT/HCPCS: 80053; 80061; 82043; 82306; 82570; 83036; 84443; 85025

== ENCOUNTER 2023-02-08 13:56 | Emergency (ER) | payer MEDICAID, SELFPAY ==
[2023-02-08] VITALS (7 sets, daily range): BP systolic 166–222; BP diastolic 77–128; PULSE 77–97; RESP 16–21; TEMP 36.8; O2SAT 91–98; BMI 56.5
--- NOTE | 2023-02-08 14:06 | CT_ITS ---
FINAL REPORT TECHNIQUE: Axial CT images of the abdomen and pelvis were obtained after the administration of IV contrast. Coronal reformatted images were also obtained and reviewed.This study was performed with techniques to keep radiation doses as low as reasonably achievable (ALARA). Individualized dose reduction techniques using automated exposure control or adjustment of mA and/or kV according to the patient's size were employed. CLINICAL HISTORY: diffuse abd and back pain, morbid obesity COMPARISON: 04/05/2020 FINDINGS: CT OF THE ABDOMEN AND PELVIS WITH CONTRAST Abdomen: The lung bases are clear. The heart is normal in size. The liver is fatty infiltrated. There is a persistent area of soft tissue along the superior gallbladder which measures approximately 31 mm and is worrisome for polyp or neoplasm. The spleen is unremarkable. No adrenal mass is present. The pancreas has an unremarkable appearance. The kidneys are normal, without evidence of mass or hydronephrosis. The aorta is normal in caliber. There is no free fluid or adenopathy. No mass or abnormal fluid collection is seen. There are chronic left posterior rib fractures. Pelvis: The appendix normal. The urinary bladder is unremarkable. No inflammatory process is seen. There is no evidence of mass or adenopathy. There are several diverticula in the colon without evidence of diverticulitis. There is infraumbilical hernia containing fat. Orifice measures 5.2 cm and sac measures 9.2 cm in transverse dimension. IMPRESSION: Persistent area of soft tissue along superior gallbladder worrisome for polyp or neoplasm. Fatty liver. Infraumbilical hernia containing fat. Reviewed, Interpreted and Dictated by Nirmal Cummings III, MD Transcribed by Madhavi Hooper Authenticated and [facility]
--- NOTE | 2023-02-08 14:08 | HMH.EDGENADL ---
Discharge Plan Disposition Patient Disposition: Home, Self-Care Prescriptions Prescriptions: New cefdinir 300 mg capsule 300 mg PO BID 10 Days Qty: 20 0RF No Action cephalexin 500 mg capsule 500 mg PO Q8H 10 Days Qty: 30 0RF clobetasol 0.05 % cream 1 applic topical BID PRN (Reason: rash) 14 Days Qty: 60 0RF albuterol sulfate 90 mcg/actuation HFA aerosol inhaler See Rx Instructions .Route .COMPLEX Qty: 8.5 10RF Rx Instructions: Use 2 puffs every 6 hours as needed for shortness of breath or wheezing buspirone 5 mg tablet See Rx Instructions .ROUTE .COMPLEX Qty: 90 2RF Dose Instruction: TAKE 1 TABLET BY MOUTH 3 TIMES DAILY Rx Instructions: TAKE 1 TABLET BY MOUTH 3 TIMES DAILY cholecalciferol (vitamin D3) [Vitamin D3] 50 mcg (2,000 unit) capsule See Rx Instructions .ROUTE .COMPLEX Qty: 90 3RF Dose Instruction: Take 1 Capsule by mouth once daily for supplement. Rx Instructions: Take 1 Capsule by mouth once daily for supplement. diltiazem HCl 180 mg capsule,extended release 24hr See Rx Instructions .ROUTE .COMPLEX Qty: 90 3RF Dose Instruction: Take 1 Capsule by mouth once daily for high blood pressure. Rx Instructions: Take 1 Capsule by mouth once daily for high blood pressure. famotidine 20 mg tablet 20 mg PO DAILY Qty: 90 3RF Tradjenta 5 mg tablet See Rx Instructions .ROUTE .COMPLEX Qty: 90 3RF Dose Instruction: Take 1 Tablet by mouth once daily for diabetes. Rx Instructions: Take 1 Tablet by mouth once daily for diabetes. oxybutynin chloride 5 mg tablet See Rx Instructions .ROUTE .COMPLEX Qty: 270 3RF Dose Instruction: Take 1 tablet by mouth 3 times daily. Rx Instructions: Take 1 tablet by mouth 3 times daily. simvastatin 20 mg tablet See Rx Instructions .ROUTE .COMPLEX Qty: 90 0RF Dose Instruction: Take 1 Tablet by mouth at bedtime for cholesterol. Rx Instructions: Take 1 Tablet by mouth at bedtime for cholesterol. venlafaxine 150 mg capsule,extended release 24hr See Rx Instructions .ROUTE .COMPLEX Qty: 90 0RF Dose Instruction: TAKE 1 CAPSULE BY MOUTH DAILY FOR ANXIETY Rx Instructions: TAKE 1 CAPSULE BY MOUTH DAILY FOR ANXIETY (DME) lancets [FreeStyle Lancets] 28 gauge misc See Rx Instructions .ROUTE .COMPLEX Qty: 100 0RF Dose Instruction: USE DIRECTED Rx Instructions: USE DIRECTED ergocalciferol (vitamin D2) 1,250 mcg (50,000 unit) capsule See Rx Instructions .ROUTE .COMPLEX Qty: 8 2RF Dose Instruction: Take 1 Capsule by mouth twice weekly. Rx Instructions: Take 1 Capsule by mouth twice weekly. Referrals Follow up/Referrals: Abraham Prescott MD [Primary Care Provider] - See instructions Activity Restrictions/Add. Instructions Additional Instructions/Restrictions: Has follow-up with her primary care doctor in 2 to 3 days to follow-up and urine culture results and return to the emergency department with any high fevers or flulike symptoms. Clinical Impressions Clinical Impression: Pyelonephritis Discharge ED Provider: Gage Hargrove General Adult HPI General Chief complaint: PAIN Stated complaint: Lower back pain Time Seen by Provider: 02/08/23 14:00 History of Present Illness HPI narrative: Patient is a 57-year-old morbidly obese female presenting with diffuse abdominal and lower back pain. States that last time she had this after symptoms she was admitted to hospital for a kidney infection. She denies any dysuria frequency urgency and is chronically incontinent of urine. She states she just feels generally poor. No fevers or chills that she is aware of. No diarrhea or constipation. No erythema or skin abnormalities that she is aware of. Related Data Previous Rx's Medication Instructions Recorded lancets 28 gauge (Rachell ##100 02/24/22 Lancets) ergocalciferol (vitamin D2) 1,250 See Rx Inst
[2023-02-08 14:14] LABS: Microscopic, Urine URINE MICROSCOPIC (MICROSCOPIC)
[2023-02-08 14:22] LABS: Appearance,Urine CLOUDY (Clear); Bilirubin,Urine Negative (Negative); Blood, Urine 3+ (Negative); Color,Urine YELLOW (Yellow); Glucose,Urine (UA) Negative (Negative); Ketones,Urine Negative (Negative); Leukocyte Esterase,Urine 2+ (Negative); Nitrate,Urine POSITIVE (Negative); Protein,Urine 3+ (Negative)
[2023-02-08 14:58] LABS: Basophils % 0.3 % (0.1-2.0); Eosinophils # 0.1 K/mm3 (0.0-0.4); Eosinophils % 1.3 % (0.1-12.0); Hematocrit 47.2 % (37.0-47.0); Hemoglobin 15.1 g/dL (12.2-16.2); Lymphocytes # 1.3 K/mm3 (0.7-4.5); Mean Corpuscular Hemoglobin 28.5 pg (27.0-31.2); Mean Platelet Volume 9.7 fl (7.4-10.4); Monocytes # 0.9 K/mm3 (0.1-1.0); Monocytes % 8.1 % (1.7-9.3); Neutrophils # 8.8 K/mm3 (1.8-7.8); Neutrophils % 78.3 % (37.0-80.0); Platelet Count 183 K/mm3 (142-424); Red Blood Count 5.31 M/mm3 (4.20-5.40); Red Cell Distribution Width 15.2 % (11.5-17.5); White Blood Count 11.2 K/mm3 (4.8-10.8)
[2023-02-08 15:00] LABS: Bacteria,Urine Trace /lpf; RBC,Urine TNTC #/hpf (0-3); Squamous Epithelial Cell,Urine Occasional #/hpf (0-5); WBC,Urine TNTC #/hpf (0-3)
[2023-02-08 15:07] LABS: Chloride 103 mmol/L (98-107); Potassium 4.2 mmoL/L (3.5-5.1); Sodium 137 mmol/L (136-145)
--- NOTE | 2023-02-08 15:07 | PC.NURSE ---
Reassessed patient's pain; MD notified patient's pain is not any better. V/O for 1mg Dilaudid IVP
[2023-02-08 15:09] LABS: Blood Urea Nitrogen 9 mg/dl (7-17); Creatinine Clearance Estimated 64 mL/min (50-200); Estimated Glomerular Filt Rate 64 ml/min (>60); GFR (African American) 78 ML/MIN (>60)
[2023-02-08 15:10] LABS: Alanine Aminotransferase 26 U/L (12-78); Albumin/Globulin Ratio 1.1 (1.1-1.8); Alkaline Phosphatase 75 U/L (38-126); Anion Gap 13.2 mEq/L (5-15); Aspartate Amino Transferase 29 U/L (14-36); Bilirubin,Total 0.6 mg/dl (0.2-1.3); Calcium 9.2 mg/dl (8.4-10.2); Carbon Dioxide 25 mmol/L (22.0-30.0); Globulin 3.8 g/dL (1.3-3.2); Glucose 125 mg/dl (74-100); Lipase 206 U/L (23-300); Total Protein,Serum 7.8 g/dl (6.3-8.2)
--- NOTE | 2023-02-08 15:21 | PC.NURSE ---
pt. to CT
--- NOTE | 2023-02-08 16:32 | PC.NURSE ---
ROUNDED ON PT SHE STATED SHE HAD AN ACCIDENT SO I CHANGED BED AND PLACED CHUCKS, RINA HELP PT GET IN WHEELCHAIR AND ROLLED HER TO RESTROOM SO SHE WAS ABLE TO CLEAN UP SHE WAS GIVEN MESH PANTIES WITH TWO BIG PADS AND A BIGGER GOWN, IN ROOM
--- NOTE | 2023-02-08 17:09 | PC.NURSE ---
NOTIFIED YANG MENDIOLA OF PT BP
== END 2023-02-08 17:44 | disposition home or self-care (01) ==
PROVIDERS: Emergency Provider Student in an Organized Health Care Education/Training Program; PCP Family Medicine
DX: N12 Tubulo-interstitial nephritis, not specified as acute or chronic (principal); E11.9 Type 2 diabetes mellitus without complications; I10 Essential (primary) hypertension; E66.01 Morbid (severe) obesity due to excess calories; F17.210 Nicotine dependence, cigarettes, uncomplicated
CPT/HCPCS: 74177; 80053; 81001; 83605; 83690; 85025; 87086; 87088; 87186; 96361; 96374; 96375; 99285; J2405; Q9967

== ENCOUNTER → 2023-06-15 14:06 | Outpatient (CLI) | payer MEDICAID, SELFPAY | PROVIDERS: PCP Family Medicine; Visit Provider Family Medicine | DX: N39.0 Urinary tract infection, site not specified (principal); B96.29 Other Escherichia coli [E. coli] as the cause of diseases classified elsewhere; B96.1 Klebsiella pneumoniae [K. pneumoniae] as the cause of diseases classified elsewhere; B96.4 Proteus (mirabilis) (morganii) as the cause of diseases classified elsewhere; B96.89 Other specified bacterial agents as the cause of diseases classified elsewhere | CPT/HCPCS: 87086 ==

== ENCOUNTER 2024-01-02 11:05 | Outpatient (CLI) | payer MEDICAID, SELFPAY | END 2024-01-02 23:59 | disposition home or self-care (01) | LOC: LAB.DROPOF 01-03 11:06 | PROVIDERS: PCP Nurse Practitioner; Visit Provider Nurse Practitioner | DX: R30.0 Dysuria (principal); B96.29 Other Escherichia coli [E. coli] as the cause of diseases classified elsewhere | CPT/HCPCS: 87086; 87088; 87186 ==

== ENCOUNTER 2025-05-22 14:03 | Inpatient (IN) | payer MEDICAID, SELFPAY ==
[2025-05-22] VITALS (20 sets, daily range): BP systolic 116–145; BP diastolic 70–104; PULSE 64–119; RESP 16–26; TEMP 36.8–36.9; O2SAT 94–98; BMI 48.4; BMI 44.3
--- NOTE | 2025-05-22 14:05 | ECG_ITS ---
APPROVED REPORT Exam: Resting ECG HR:123 bpm ECG Measurements Heart Rate 123 AXES QRSd 109 QRS 79 QT 332 T 109 QTc 405 Conclusion ATRIAL FIBRILLATION WITH RAPID VENTRICULAR RESPONSE NONSPECIFIC ST & T-WAVE ABNORMALITY ABNORMAL RHYTHM ECG Electronically signed by : BHAVESH STUART, 05/29/2025 16:55:42
--- NOTE | 2025-05-22 14:10 | XR_ITS ---
FINAL REPORT CLINICAL HISTORY: SOA COMPARISON: 04/05/2020 FINDINGS: A portable view of the chest was obtained. There is cardiomegaly. Patient is status post median sternotomy. There are new interstitial opacities, favor pulmonary edema. There is no pleural effusion or pneumothorax. IMPRESSION: New interstitial opacities, favor pulmonary edema. Reviewed, Interpreted and Dictated by Alicia Oconnor MD Transcribed by Zulema Lynn Authenticated and [facility]
--- NOTE | 2025-05-22 14:11 | CT_ITS ---
FINAL REPORT TECHNIQUE: Postcontrast axial images of the chest were performed in a CTA protocol. The study was performed with techniques to keep radiation dose as low as reasonably achievable, (ALARA). Individual dose reduction techniques using automated exposure control or adjustment of mA and/or kV according to the patient's size were employed. CLINICAL HISTORY: Shortness of air, immobile COMPARISON: 06/17/2020 FINDINGS: There is no axillary adenopathy. There is no hilar or mediastinal adenopathy. The heart size is normal. There is no pericardial effusion. There is a small left pleural effusion. No filling defects are identified to suggest PE. There is no aortic dissection. There are diffuse interstitial changes. A 4 mm nodule in the right midlung is seen on image 63. This is new from the prior exam. There is left base atelectasis. There are left perihilar ground glass opacities. Old left posterior rib fractures are noted. IMPRESSION: No PE or dissection. Left pleural effusion and left perihilar ground glass opacities. New, 4 mm nodule in the right midlung. 6-month follow-up chest CT is recommended. Reviewed, Interpreted and Dictated by Leeroy Kim MD Transcribed by Alma Morales Authenticated and . [facility]
--- NOTE | 2025-05-22 14:12 | CT_ITS ---
FINAL REPORT TECHNIQUE: Thin section axial images were obtained through the cervical spine without contrast. Multiplanar reconstruction images were obtained from the axial data. Exam was performed using dose reduction techniques. CLINICAL HISTORY: Neck pain left-sided radiculopathy FINDINGS: There is no acute fracture or acute malalignment of the cervical spine. There is multilevel degenerative disc disease with multilevel canal and foraminal stenosis. Canal stenosis is most pronounced at C5-6 and C6-7 as is the foraminal narrowing. There are ground glass opacities, left greater than right in the upper lobes with interlobular septal thickening concerning for pulmonary edema. IMPRESSION: Multilevel degenerative disc disease. Consider MRI on a nonemergent basis. Ground glass opacities in the upper lobes with interlobular septal thickening concerning for pulmonary edema. Reviewed, Interpreted and Dictated by Alicia Oconnor MD Transcribed by Zulema Lynn Authenticated and [facility]
--- NOTE | 2025-05-22 14:12 | CT_ITS ---
FINAL REPORT TECHNIQUE: The patient was injected with intravenous contrast. Axial images were obtained from the lung bases to the pubic symphysis by computed tomography. This study was performed with techniques to keep radiation doses as low as reasonably achievable, (ALARA). Individualized dose reduction techniques using automated exposure control or adjustment of mA and/or kV according to the patient's size were employed. CLINICAL HISTORY: Nausea, chest discomfort COMPARISON: 02/08/2023 FINDINGS: ABDOMEN: The liver is heterogeneous. The gallbladder is markedly distended. There is soft tissue along the superior margin of the gallbladder worrisome for neoplasm. This appears similar to the previous exam. The spleen is unremarkable. No adrenal mass is present. The pancreas is normal. The kidneys are normal. The aorta is normal in caliber. There is no free fluid or adenopathy. PELVIS: The appendix is normal. Urinary bladder is decompressed. The uterus is midline. There is an anterior pelvic wall hernia, to the left of midline, containing omental fat.. There is no significant free fluid or adenopathy. IMPRESSION: Markedly distended gallbladder with soft tissue along the superior margin of the gallbladder. This is worrisome for neoplasm. Surgical correlation is recommended. Reviewed, Interpreted and Dictated by Leeroy Kim MD Transcribed by Alma Morales Authenticated and . [facility]
--- NOTE | 2025-05-22 14:15 | [facility].EDCP ---
Discharge Plan Disposition Patient Disposition: Admitted Condition: Good Clinical Impressions Clinical Impression: Atrial fibrillation by electrocardiogram, Atypical chest pain, Pulmonary edema Discharge ED Provider: Osmar Osuna JR HPI General Chief Complaint: Shortness of Breath/Dyspnea Stated Complaint: Left shoulder and arm pain Time Seen by Provider: 05/22/25 14:08 Mode of Arrival: EMS Source of Information: Patient and Medical Record Limitations: No Limitations History of Present Illness HPI narrative: 60-year-old female presents to the emergency department via EMS for left-sided arm pain numbness tingling shortness of breath and lightheadedness that started around 9 AM today, patient has any fever chills denies any overt chest pain, states that the pain starts in her arm and will shoot up into my neck , denies any overt injury, no trauma, patient admits to nausea no vomiting no constipation no diarrhea no abdominal pain, no urinary type symptomatology with the exception of I am incontinent , patient states that she; for 5 years, states that she has bladder issues , and wears a pad. Patient is a current everyday smoker, denies any alcohol or drug use, initial triage vitals noted for tachycardia, otherwise unremarkable. Other past medical history is consistent with data deficient history of gallbladder mass/abdominal mass, morbid obesity, osteoarthritis, hypertension, type 2 diabetes, HERNANDEZ/MDD. Please note that above description of symptoms, in this electronic medical record under categorization of recalled from ER triage doctor by RN are reflective of an initial nursing assessment, however, is not reflective of my full history and physical exam that was personally taken and clarified. Consequentially, this preceding description of symptoms, which may include the patient's categorized chief complaint in the EMR, do not reflect my personal clinical impression, and the ultimate description of history of present illness and patient stated complaints should be deferred to this section of the note. Unless stated otherwise or congruent with this section of the note, additional signs, symptoms, or incongruence should be interpreted as inaccurate with my clinical impression. complaint: other Onset (ago): hour(s) Related Data Previous Rx's ?Medication ?Instructions ?Recorded clobetasol 0.05 % topical cream 1 applic topical BID PRN rash 2 01/16/23 weeks #60 grams tramadol 50 mg tablet 50 mg PO TID PRN pain #45 tabs 03/15/23 simvastatin 20 mg tablet See Rx Instructions .Route 05/01/23 .COMPLEX #90 tabs oxybutynin chloride 5 mg tablet See Rx Instructions .Route 01/30/24 .COMPLEX #270 tabs famotidine 20 mg tablet 20 mg PO DAILY #90 tabs 02/25/24 albuterol sulfate 90 mcg/actuation See Rx Instructions .Route 09/29/24 aerosol inhaler .COMPLEX Asthma #8.5 grams ergocalciferol (vitamin D2) 1,250 See Rx Instructions .Route 11/20/24 mcg (50,000 unit) capsule .COMPLEX #8 caps venlafaxine 150 mg See Rx Instructions .Route 11/20/24 capsule,extended release 24 hr .COMPLEX #90 caps cholecalciferol (vitamin D3) 50 See Rx Instructions .Route 11/27/24 mcg (2,000 unit) capsule (Vitamin .COMPLEX #30 caps D3) valsartan 160 mg tablet 160 mg PO DAILY #30 tabs 11/27/24 blood sugar diagnostic (OneTouch #50 strips 12/18/24 Ultra Test strips) lancets 30 gauge (Droplet Lancets) #100 ea 12/18/24 alcohol swabs (BD Alcohol Swabs) See Rx Instructions .Route 01/16/25 .COMPLEX #100 pad buspirone 5 mg tablet See Rx Instructions .Route 02/17/25 .COMPLEX #90 tabs cetirizine 10 mg tablet See Rx Instructions .Route 02/17/25 .COMPLEX #30 tabs linagliptin 5 mg tablet (Tradjenta) See Rx Instructions .Route 02/17/25 .COMPLEX #90 tabs Allergies Allergy/AdvReac Type Severity Reaction Status Date / Time Penicillins Allergy Unknown Hives Verified 02/06/24 15:09 [facility] Disclaimer: The information contained in this section may have been updated after the patient was seen, as this information can be updated by other users. Medical History Allergic rhinitis Osteoarthritis Hypertension Diabetes Surgical History History of colonoscopy Social History Smoking Status: Current every day smoker tobacco type: cigarettes packs per day: 1 second hand exposure: Yes alcohol intake: never substance use type: marijuana current occupational status: unemployed Travel in the last 8 weeks?: None household members: spouse housing: house current occupational exposures/hazards: No caffeine: Yes Have you lived/traveled outside [place] in past 30 days?: No Contact w/someone who lives/traveled outside [place] past 30 days?: No Exposure to someone with infectious disease in past 14 days?: No Do you have a fever (greater than 100.4 F or 38 C)?: No Have you tested positive for COVID-19?: No Exposed to someone with COVID-19 in past 14 days?: No Do you have a sore throat?: No Do you have a cough?: No Do you have any weakness?: No Do you have any diarrhea?: No Are you experiencing any unusual bleeding?: No Do you have any muscle aches/pain?: No Do you have any abdominal pain?: No Are you experiencing loss of taste or smell?: No Other Medical History Have you received the Flu Vaccine for this season: No Have you received the Pneumonia Vaccine: No ROS Obtained: Yes All systems reviewed & no additional complaints except as documented Physical Exam General General appearance: alert and in no apparent distress Head Head exam: atraumatic and normocephalic Eye Eye exam: Present normal appearance, PERRL and EOMI Neck Neck exam: Present full ROM; Absent meningismus Chest Chest inspection: Present normal inspection Respiratory Respiratory exam: Absent respiratory distress, wheezes, stridor, accessory muscle use or prolonged expiratory phase Cardiovascular Cardiovascular exam: Present tachycardia, irregular rhythm and other (Pulses equal and symmetric in bilateral upper and lower extremities); Absent normal rhythm Abdominal Exam Abdominal exam: Absent distention, tenderness, guarding or rebound Extremities Exam Extremities exam: Present normal inspection, full ROM and other (Mood extremities to command, good strength in the left upper extremity no gross sensation deficit, otherwise neurovascular intact.); Absent edema Neurological Exam Neurological exam: Present alert, oriented X3 and other (Moves extremities command.) Psychiatric Psychiatric exam: Present normal affect Skin Skin exam: Present warm and dry HEART Score HEART Score HEART Score assessment performed?: Yes HEART Score: 3 Critical Care Critical Care Time Critical Care Time: No Medical Decision Making Medical Records Medical records reviewed: Yes I reviewed the patient's medical records. Robert Inquiry Pt receiving controlled substance: No Robert was queried for this patient: No Vital Signs Vital Signs: 05/22/25 14:04 05/22/25 14:11 05/22/25 14:30 Temperature 98.3 F Temperature Source Oral Pulse Rate 90 105 H Pulse Rate [Left] 64 Respiratory Rate 21 20 21 Blood Pressure 125/70 143/93 H Blood Pressure [Right Arm] 145/91 H Blood Pressure Mean [Right Arm] 109 Blood Pressure Source [Right Arm] Automatic Cuff Blood Pressure Position [Right Arm] Sitting 02 Sat by Pulse Oximetry 96 94 L 94 L Oxygen Delivery Method Room Air Room Air Room Air 05/22/25 15:01 05/22/25 15:46 05/22/25 15:52 Temperature Temperature Source Pulse Rate 102 H 94 H Pulse Rate [Left] Respiratory Rate 21 18 Blood Pressure 137/79 119/79 Blood Pressure [Right Arm] Blood Pressure Mean [Right Arm] Blood Pressure Source [Right Arm] Blood Pressure Position [Right Arm] 02 Sat by Pulse Oximetry 94 L 96 97 Oxygen Delivery Method Room Air Room Air Room Air 05/22/25 16:00 05/22/25 16:16 05/22/25 16:30 Temperature Temperature Source Pulse Rate 87 99 H 102 H Pulse Rate [Left] Respiratory Rate 24 20 18 Blood Pressure 130/97 H 127/83 128/86 Blood Pressure [Right Arm] Blood Pressure Mean [Right Arm] Blood Pressure Source [Right Arm] Blood Pressure Position [Right Arm] 02 Sat by Pulse Oximetry 95 98 96 Oxygen Delivery Method Room Air Room Air Room Air 05/22/25 16:46 05/22/25 17:01 05/22/25 17:15 Temperature Temperature Source Pulse Rate 94 H 105 H 119 H Pulse Rate [Left] Respiratory Rate 26 H 16 21 Blood Pressure 144/87 H 131/71 131/89 Blood Pressure [Right Arm] Blood Pressure Mean [Right Arm] Blood Pressure Source [Right Arm] Blood Pressure Position [Right Arm] 02 Sat by Pulse Oximetry 96 97 96 Oxygen Delivery Method Room Air Room Air Room Air 05/22/25 17:30 05/22/25 17:43 05/22/25 17:45 Temperature Temperature Source Pulse Rate 100 H 111 H 93 H Pulse Rate [Left] Respiratory Rate 19 18 19 Blood Pressure 137/104 H 142/100 H 142/88 H Blood Pressure [Right Arm] Blood Pressure Mean [Right Arm] Blood Pressure Source [Right Arm] Blood Pressure Position [Right Arm] 02 Sat by Pulse Oximetry 96 96 95 Oxygen Delivery Method Room Air Room Air Room Air 05/22/25 18:02 Temperature 98.3 F Temperature Source Pulse Rate 98 H Pulse Rate [Left] Respiratory Rate 18 Blood Pressure 144/88 H Blood Pressure [Right Arm] Blood Pressure Mean [Right Arm] Blood Pressure Source [Right Arm] Blood Pressure Position [Right Arm] 02 Sat by Pulse Oximetry Oxygen Delivery Method Lab Data Lab results reviewed: Yes I reviewed the patient's lab results. Labs: Lab Results 05/22/25 14:10: WBC 9.8, RBC 5.20, Hgb 15.4, Hct 46.1, MCV 88.7, MCH 29.6, MCHC 33.4, RDW 16.7, Plt Count 198, MPV 10.3, Neut % (Auto) 75.0, Lymph % (Auto) 15.5, [place] % (Auto) 7.7, Eos % (Auto) 0.7, Baso % (Auto) 0.4, Neut # (Auto) 7.4, Lymph # (Auto) 1.5, [place] # (Auto) 0.8, Eos # (Auto) 0.1, Baso # (Auto) 0.0, PT 13.1 H, INR 1.20 H, Sodium 132 L, Potassium 4.4, Chloride 99, Carbon Dioxide 20 L, Anion Gap 17.4 H, BUN 10, Creatinine 0.90, Estimated Creat Clear 55, Estimated GFR 64, Est GFR ( Amer) 77, Glucose 113 H, Calcium 9.1, Magnesium 1.7, Total Bilirubin 1.1, AST 22, ALT 16, Alkaline Phosphatase 87, Troponin I < 0.01, NT-Pro-B Natriuret Pep 1190 H, Total Protein 6.6, Albumin 3.2 L, Globulin 3.4 H, Albumin/Globulin Ratio 0.9 L 05/22/25 14:13: VBG pH 7.39, VBG pCO2 37.0, VBG pO2 55.8 H, VBG HCO3 22.0 L, VBG Total CO2 23.2, VBG O2 Saturation 87.1 H, VBG Base Excess -2.9 L, VBG Lactic Acid 3.3 H 05/22/25 14:10 05/22/25 14:10 Response Orders (Tests/Meds): ED MEDICATIONS Discontinued Medications Generic Name Dose Route Start Last Admin Trade Name Freq PRN Reason Stop Dose Admin Aspirin 324 mg 05/22/25 16:33 05/22/25 16:51 Aspirin 81mg Chewable Tablet PO 05/22/25 16:34 324 mg ONCE ONE Administration Furosemide 60 mg 05/22/25 17:12 05/22/25 17:35 Furosemide 40mg/4ml Vial IV 05/22/25 17:13 60 mg ONCE ONE Administration Iopamidol 70 ml 05/22/25 15:41 05/22/25 15:42 Iopamidol-370 (76%);100ml Bottle IV 05/22/25 15:42 70 ml ONCE ONE Administration Metoprolol Tartrate 5 mg 05/22/25 14:11 05/22/25 15:05 Metoprolol Tartrate 5mg/5ml Vial IV 05/22/25 14:12 5 mg ONCE ONE Administration Sodium Chloride 40 ml 05/22/25 15:41 05/22/25 15:42 0.9 % Sodium Chloride 50 Ml Vial IV 05/22/25 15:42 40 ml ONCE ONE Administration Sodium Chloride 10 ml 05/22/25 15:41 05/22/25 15:42 Sodium Chloride 0.9% 10ml Syr (Rad Only) IV 05/22/25 15:42 10 ml ONCE ONE Administration ORDERS Category Date Time Status CT abdomen pelvis w con Stat Cat Scan 05/22/25 14:[address] angio chest PE protocol Stat Cat Scan 05/22/25 14:[address] cervical spine wo con Stat Cat Scan 05/22/25 14:12 Completed XR chest portable Stat Exams 05/22/25 14:10 Completed Complete Blood Count Auto Diff Stat Lab 05/22/25 14:10 Completed Comprehensive Metabolic Panel Stat Lab 05/22/25 14:10 Completed HIV Combo Stat Lab 05/22/25 14:10 Received Hepatitis C Ab Qual. W/ RFX Stat Lab 05/22/25 14:10 Received Magnesium Stat Lab 05/22/25 14:10 Completed NT Pro Brain Natriuretic Pep. Stat Lab 05/22/25 14:10 Completed PT INR [Prothrombin Time INR] Stat Lab 05/22/25 14:10 Completed Troponin I Q3H Lab 05/22/25 17:15 Ordered Troponin I Q3H Lab 05/22/25 20:15 Ordered Troponin I Stat Lab 05/22/25 14:10 Completed Urinalysis and Microscopic Stat Lab 05/22/25 14:10 Ordered VBG [Venous Blood Gas] Stat RT 05/22/25 14:13 Completed MDM Narrative Medical Decision Narrative: 60-year-old female presents to the emergency department via EMS for lightheadedness, left-sided arm pain numbness tingling, started at 9 AM today with nausea, differential diagnose include but not limited to cardiac arrhythmia, electrolyte disturbance, ACS, PE, pneumonia, costochondritis, cervicalgia, cervical radiculopathy, anxiety reaction, panic attack among others. I discussed this patient's case with the attending physician Dr. Osuna as well as the attending physician Dr. Landa Will obtain basic laboratory studies, EKG, chest x-ray, magnesium level proBNP PT/INR, troponin,, UA, VBG, will also obtain CTA chest with and without contrast PE protocol, CT cervical spine without contrast, CT and pelvis with contrast, for further evaluation, and will give 5 mg IV metoprolol as patient's initial EKG is notable for atrial fibrillation with RVR at 123 bpm, no STEMI. This was reviewed by myself and the attending physician. Will also give 324 mg p.o. aspirin VBG is noted for normal pH, bicarb is decreased at 22, venous lactic acid level is elevated at 3.3 CBC unremarkable Coags notable for PT of 13.1, INR 1.2 CMP is notable for mild hyponatremia at 132 otherwise unremarkable proBNP is mildly elevated at 1190 hypoalbuminemia 3.2 otherwise unremarkable Upon observing the patient's monitor at 4:20 PM, patient is currently rate controlled, will repeat EKG. I reviewed the patient's chest x-ray along the corresponding radiologic report, no interstitial opacities or pulmonary edema I reviewed the patient's CT cervical spine without contrast on the corresponding radiologic report, multilevel degenerative disc disease, consider MRI on a nonemergent basis, ground glass opacities in the upper lobes with interlobar septal thickening concern for pulmonary edema I reviewed the patient's CT and pelvis with contrast on the corresponding radiologic report, markedly distended gallbladder with soft tissue along with the superior margin of the gallbladder this is worrisome for neoplasm, surgical correlation is recommended I reviewed the patient's CTA chest with and without contrast PE protocol, no PE or dissection, left pleural effusion with left perihilar ground glass opacities, new 4 mm nodule the right midlung 6-month follow-up CT chest, will give Repeat EKG is notable for fibrillation, 115 bpm, QT intervals 356/424 there is no STEMI. I discussed this patient's case via messaging system with the hospitalist physician at approximately 5:11 PM, he is agreement the current admission plan/treatment plan for new onset atrial fibrillation pulmonary edema in the setting of undiagnosed CHF. I discussed need for admission with the patient and family the bedside patient and family are in agreement with current treatment plan/admission plan.
[2025-05-22 14:20] LABS: VBG HCO3 22.0 mmol/L (23-30); VBG PCO2 37.0 mmol/L (35-51); VBG PH 7.39 mmol/L (7.31-7.41); VBG PO2 55.8 mmol/L (28-40)
[2025-05-22 14:22] LABS: Lactate Venous 3.3 mmol/L (0.4-2.0)
[2025-05-22 14:23] LABS: Hematocrit 46.1 % (37.0-47.0); Hemoglobin 15.4 g/dL (12.2-16.2); Immature Granulocytes % 0.7 %; Mean Corpuscular HGB Conc 33.4 g/dL (31.8-35.4); Mean Corpuscular Hemoglobin 29.6 pg (27.0-31.2); Mean Corpuscular Volume 88.7 fl (81-99); Nucleated Red Blood Cells % 0 %; Platelet Count 198 K/mm3 (142-424); Red Blood Count 5.20 M/mm3 (4.20-5.40); Red Cell Distribution Width-SD 54.1 fL; White Blood Count 9.8 K/mm3 (4.8-10.8)
[2025-05-22 14:40] LABS: INR 1.20 (0.9-1.1); Prothrombin Time 13.1 seconds (10.1-12.5)
[2025-05-22 14:52] LABS: Alanine Aminotransferase 16 U/L (12-78); Albumin Level 3.2 g/dl (3.5-5.0); Albumin/Globulin Ratio 0.9 (1.1-1.8); Alkaline Phosphatase 87 U/L (38-126); Anion Gap 17.4 mEq/L (5-15); Aspartate Amino Transferase 22 U/L (14-36); Bilirubin,Total 1.1 mg/dl (0.2-1.3); Blood Urea Nitrogen 10 mg/dl (7-17); Calcium 9.1 mg/dl (8.4-10.2); Carbon Dioxide 20 mmol/L (22.0-30.0); Chloride 99 mmol/L (98-107); Creatinine Clearance Estimated 55 mL/min (50-200); Creatinine,Serum 0.90 mg/dl (0.52-1.04); Estimated Glomerular Filt Rate 64 ml/min (>60); GFR (African American) 77 ML/MIN (>60); Globulin 3.4 g/dL (1.3-3.2); Glucose 113 mg/dl (74-100); Magnesium 1.7 mg/dl (1.6-2.3); Potassium 4.4 mmoL/L (3.5-5.1); Sodium 132 mmol/L (136-145); Total Protein,Serum 6.6 g/dl (6.3-8.2)
[2025-05-22 15:01] LABS: NT Pro Brain Natriuretic Pep. 1190 pg/mL (0-125)
[2025-05-22 15:03] LABS: Troponin I < 0.01 ng/ml (0.00-0.034)
[2025-05-22] MEDS: METOPROLOL TARTRATE 5MG/5ML VIAL 5 MG IV (15:05)
[2025-05-22] MEDS: IOPAMIDOL-370 (76%);100ML BOTTLE 70 ML IV (15:42)
[2025-05-22] MEDS: 0.9 % SODIUM CHLORIDE 50 ML VIAL 40 ML IV (15:42)
[2025-05-22] MEDS: SODIUM CHLORIDE 0.9% 10ML SYR (RAD ONLY) 10 ML IV (15:42)
[2025-05-22] MEDS: ASPIRIN 81MG CHEWABLE TABLET 324 MG PO (16:51)
--- NOTE | 2025-05-22 16:54 | ECG_ITS ---
APPROVED REPORT Exam: Resting ECG HR:115 bpm ECG Measurements Heart Rate 115 AXES QRSd 108 QRS 88 QT 356 T 36 QTc 424 Conclusion Atrial fibrillation with rapid ventricular response Normal axis No STEMI Electronically signed by : Joe Landa, 05/23/2025 01:30:41
--- NOTE | 2025-05-22 17:13 | PC.NURSE ---
call made to powerhouse operator for bed assignment
[2025-05-22] MEDS: FUROSEMIDE 40MG/4ML VIAL 60 MG IV (17:35)
--- NOTE | 2025-05-22 17:41 | PC.NURSE ---
REPORT CALLED TO YANG LANG FOR ROOM [id number]
--- NOTE | 2025-05-22 18:10 | PC.NURSE ---
Patient arrived to unit via stretcher at 1804
[2025-05-22 18:21] LABS: POC Glucose,Bedside 106 gm/dL (70-110)
[2025-05-22 18:23] LABS: Reflex Lactic Add Lactic Reflex
--- NOTE | 2025-05-22 18:26 | PC.WOUNDNOTE ---
excoriation and yeast under left breast
--- NOTE | 2025-05-22 18:27 | PC.WOUNDNOTE ---
scabbing on left [place]
--- NOTE | 2025-05-22 18:27 | PC.WOUNDNOTE ---
scabbing on the top of the toes on the left foot
--- NOTE | 2025-05-22 18:28 | PC.WOUNDNOTE ---
excoriation and yeast under right breast
--- NOTE | 2025-05-22 18:28 | PC.WOUNDNOTE ---
yeast in right groin
--- NOTE | 2025-05-22 18:29 | PC.WOUNDNOTE ---
janett sized open area
--- NOTE | 2025-05-22 18:30 | PC.WOUNDNOTE ---
yeast and excoriation in left groin
--- NOTE | 2025-05-22 18:31 | PC.WOUNDNOTE ---
very swollen labia
--- NOTE | 2025-05-22 18:36 | P.HP_ITS ---
History of Present Illness *Admission Date: 05/22/25 *Reason for visit:: Shortness of breath *History of present illness: Sonya Burroughs is a 60-year-old female with a medical history significant for type 2 diabetes, chronic tobacco smoker, hypertension presents with shortness of breath. She states that began today and progressively got worse which point her family urged her to come to the ED. She states it got better after the epidural injection in the ED. Patient denies chest pain, fever/chills, abdominal pain. On my evaluation of patient, she looks quite disheveled and unkempt unfortunately. She apparently lives at home with her and daughter. Pleasant however. Workup in the ED significant for normal WBC, BNP 1190, CXR showing interstitial opacities, CTA chest With left pleural effusion and left perihilar ground glass opacities. CT abdomen showed markedly distended gallbladder with soft tissue along the superior margin of the gallbladder, worrisome for neoplasm. Patient was initially requiring oxygen, but weaned to room air in the ED. Additionally, she was found to be in A-fib RVR with heart rate in the 110s to 120s. She was given Lopressor 5 mg. Given these findings, ED provider discussed case with me and I decided to admit patient for new onset A-fib RVR, heart failure exacerbation, and probable pneumonia. [facility] Disclaimer: The information contained in this section may have been updated after the patient was seen, as this information can be updated by other users. Medical History Allergic rhinitis Osteoarthritis Hypertension Diabetes Surgical History History of colonoscopy Social History Smoking Status: Current every day smoker tobacco type: cigarettes packs per day: 1 second hand exposure: Yes alcohol intake: never substance use type: marijuana current occupational status: unemployed Travel in the last 8 weeks?: None household members: spouse housing: house current occupational exposures/hazards: No caffeine: Yes Have you lived/traveled outside [place] in past 30 days?: No Contact w/someone who lives/traveled outside US past 30 days?: No Exposure to someone with infectious disease in past 14 days?: No Do you have a fever (greater than 100.4 F or 38 C)?: No Have you tested positive for COVID-19?: No Exposed to someone with COVID-19 in past 14 days?: No Do you have a sore throat?: No Do you have a cough?: No Do you have any weakness?: No Do you have any diarrhea?: No Are you experiencing any unusual bleeding?: No Do you have any muscle aches/pain?: No Do you have any abdominal pain?: No Are you experiencing loss of taste or smell?: No Other Medical History Have you received the Flu Vaccine for this season: No Have you received the Pneumonia Vaccine: No Meds Home Medications and Allergies Home Medications ?Medication ?Instructions ?Recorded ?Confirmed ?Type clobetasol 0.05 % topical cream 1 applic topical BID P RN rash 2 01/16/23 02/06/24 Rx weeks #60 grams tramadol 50 mg tablet 50 mg PO TID PRN pain #45 ta bs 03/15/23 02/06/24 Rx simvastatin 20 mg tablet See Rx Instructions .Route 0 05/01/23 02/06/24 Rx .COMPLEX #90 tabs oxybutynin chloride 5 mg tablet See Rx Instructions .R oute 01/30/24 02/06/24 Rx .COMPLEX #270 tabs famotidine 20 mg tablet 20 mg PO DAILY #90 tabs 02/10 01/03 Rx albuterol sulfate 90 mcg/actuation See Rx Instructions .Route 09/29/24 Rx aerosol inhaler .COMPLEX Asthma #8.5 grams ergocalciferol (vitamin D2) 1,250 See Rx Instructions .Route 11/20/24 Rx mcg (50,000 unit) capsule .COMPLEX #8 caps venlafaxine 150 mg See Rx Instructions .Route 0 11/20/24 Rx capsule,extended release 24 hr .COMPLEX #90 caps cholecalciferol (vitamin D3) 50 See Rx Instructions .R oute 11/27/24 Rx mcg (2,000 unit) capsule (Vitamin .COMPLEX #30 caps D3) valsartan 160 mg tablet 160 mg PO DAILY #30 tabs Rx blood sugar diagnostic (OneTouch #50 strips 12/18/24 Rx Ultra Test strips) lancets 30 gauge (Droplet Lancets) #100 ea 12/18/24 R x alcohol swabs (BD Alcohol Swabs) See Rx Instructions . Route 01/16/25 Rx .COMPLEX #100 pad buspirone 5 mg tablet See Rx Instructions .Route 0 02/17/25 Rx .COMPLEX #90 tabs cetirizine 10 mg tablet See Rx Instructions .Route 0 02/17/25 Rx .COMPLEX #30 tabs linagliptin 5 mg tablet (Tradjenta) See Rx Instruction s .Route 02/17/25 Rx .COMPLEX #90 tabs New Prescriptions to Start Prescriptions: Allergies Allergy/AdvReac Type Severity Reaction Status Date / Time Penicillins Allergy Unknown Hives Verified 02/06/24 15:09 Exam Data for Last 24 hours Vital signs and Labs for Last 24 Hours: Temp Pulse Resp BP Pulse Ox O2 Del Method 98.3 F 98 H 18 144/88 H 95 Room Air 05/22/25 18:02 05/22/25 18:02 05/22/25 18:02 05/22/25 18:02 05/22/25 17:45 05/22/25 17:45 Laboratory Results - last 24 hr 05/22/25 14:10: WBC 9.8, RBC 5.20, Hgb 15.4, Hct 46.1, MCV 88.7, MCH 29.6, MCHC 33.4, RDW 16.7, Plt Count 198, MPV 10.3, Neut % (Auto) 75.0, Lymph % (Auto) 15.5, [place] % (Auto) 7.7, Eos % (Auto) 0.7, Baso % (Auto) 0.4, Neut # (Auto) 7.4, Lymph # (Auto) 1.5, [place] # (Auto) 0.8, Eos # (Auto) 0.1, Baso # (Auto) 0.0, PT 13.1 H, INR 1.20 H, Sodium 132 L, Potassium 4.4, Chloride 99, Carbon Dioxide 20 L, Anion Gap 17.4 H, BUN 10, Creatinine 0.90, Estimated Creat Clear 55, Estimated GFR 64, Est GFR ( Amer) 77, Glucose 113 H, Calcium 9.1, Magnesium 1.7, Total Bilirubin 1.1, AST 22, ALT 16, Alkaline Phosphatase 87, Troponin I < 0.01, NT-Pro-B Natriuret Pep 1190 H, Total Protein 6.6, Albumin 3.2 L, Globulin 3.4 H, Albumin/Globulin Ratio 0.9 L 05/22/25 14:13: VBG pH 7.39, VBG pCO2 37.0, VBG pO2 55.8 H, VBG HCO3 22.0 L, VBG Total CO2 23.2, VBG O2 Saturation 87.1 H, VBG Base Excess -2.9 L, VBG Lactic Acid 3.3 H 05/22/25 18:09: POC Glucose 106 I & O for Last 24 hours: Intake & Output 05/19/25 05/20/25 05/21/25 05/22/25 23:59 23:59 23:59 23:59 Weight 136.078 kg Constitutional Constitutional: no acute distress and chronically ill appearing Comments: Disheveled, unkempt. *Routine HEENT Exam Head: Present normocephalic Eye: Present EOMI and PERRL ENT: Present mucous membranes moist *Routine Neck Exam Neck: Present supple; Absent lymphadenopathy *Routine Respiratory Exam Respiratory: Present CTA bilaterally *Routine Cardiovascular Exam Cardiovascular: Present RRR *Routine Abdominal Exam Abdominal: Present soft and normoactive bowel sounds; Absent tenderness *Routine Rectal Exam Rectal:: deferred *Routine Genitalia Exam Genitalia:: deferred *Routine Extremities Exam Extremities: Absent cyanosis, clubbing or edema Comments: Trace edema with venous stasis changes, skin ulcerations. *Routine Skin Exam Skin: Present warm; Absent rash *Routine Neurological Exam Neurological: Present alert and oriented X3 Assessment and Plan *Assessment and plan (1) Pulmonary edema: Status: Acute Category: Medical Code(s): J81.1 - Chronic pulmonary edema (2) Atrial fibrillation by electrocardiogram: Status: Acute Category: Medical Code(s): I48.91 - Unspecified atrial fibrillation (3) Heart failure: Status: Acute Category: Medical Code(s): I50.9 - Heart failure, unspecified Plan Sonya Burroughs is a 60-year-old female with a medical history significant for type 2 diabetes, chronic tobacco smoker, hypertension presents with shortness of breath. She states that began today and progressively got worse which point her family urged her to come to the ED. She states it got better after the epidural injection in the ED. Patient denies chest pain, fever/chills, abdominal pain. On my evaluation of patient, she looks quite disheveled and unkempt unfortunately. She apparently lives at home with her and daughter. Pleasant however. Workup in the ED significant for normal WBC, BNP 1190, CXR showing interstitial opacities, CTA chest With left pleural effusion and left perihilar ground glass opacities. CT abdomen showed markedly distended gallbladder with soft tissue along the superior margin of the gallbladder, worrisome for neoplasm. Patient was initially requiring oxygen, but weaned to room air in the ED. Additionally, she was found to be in A-fib RVR with heart rate in the 110s to 120s. She was given Lopressor 5 mg. Given these findings, ED provider discussed case with me and I decided to admit patient for new onset A-fib RVR, heart failure exacerbation, and probable pneumonia. #Heart failure exacerbation, new onset, unknown type ? Presented with shortness of breath, BNP elevated to 1190, CT imaging worrisome for pulmonary edema. ? Ordered IV Lasix 60 mg, follow-up response. Patient looked comfortable on my evaluation after Lasix, on room air. ? Follow-up ECHO. ? Follow-up A1c, TSH, lipid panel. ? Follow-up morning CMP, magnesium. #A-fib RVR, new onset ? Presented with heart rate in the 110s to 130s, in the setting of heart failure exacerbation. Other vital signs stable. ? Started metoprolol to tartrate 25 mg twice daily, follow-up response. ? Started therapeutic Lovenox. [id number] score 4. ? Follow-up ECHO. #Suspected community-acquired pneumonia ? CT chest suspicious for perihilar opacities, equivocal for edema versus pneumonia. ? Started ceftriaxone 1 g daily, azithromycin day 08/17. ? Follow-up sputum cultures. #Type 2 diabetes ? LDSSI, ACHS glucose checks. Follow-up hemoglobin A1c. #Distended gallbladder ? CT abdomen showed markedly distended gallbladder with soft tissue along the superior margin of the gallbladder, worrisome for neoplasm. LFTs normal. ? Follow-up gallbladder ultrasound. ? Will need close follow-up with oncology on discharge. #Hypertension ? Resume home medications once reconciled and appropriate. #Tobacco smoker ? Nicotine patch as needed. #Obesity ? Complicates all aspects of care. Full code DVT prophylaxis: Therapeutic Lovenox
[2025-05-22] MEDS: METOPROLOL SUCCINATE XL 25MG TABLET 25 MG PO (19:12)
[2025-05-22 19:18] LABS: Troponin I < 0.01 ng/ml (0.00-0.034)
[2025-05-22 19:41] LABS: Hepatitis C Ab Qual. W/ RFX NEGATIVE (Negative)
[2025-05-22] MEDS: AZITHROMYCIN 250MG TABLET 500 MG PO (20:21)
[2025-05-22] MEDS: ENOXAPARIN 150MG/ML SYRINGE 135 MG SUBCUT (20:21)
[2025-05-22] MEDS: CEFTRIAXONE 1 GM 1 GM in 0.9 % SODIUM CHLORIDE 50 ML IV (20:22)
[2025-05-22] MEDS: MAGNESIUM SULFATE IN WATER 2 GM/50 ML PIGGYBACK IV ×2 (20:22→21:15)
[2025-05-22] MEDS: NYSTATIN TOPICAL POWDER 30GM TP (20:23)
[2025-05-22] MEDS: NYSTATIN TOPICAL POWDER 30GM 30 GM TP (20:24)
[2025-05-22 21:30] LABS: POC Glucose,Bedside 130 gm/dL (70-110)
[2025-05-22 22:52] LABS: Lactic Acid Follow Up (RFLX 1) 1.6 mmol/L (0.7-2.1)
[2025-05-22 23:05] LABS: Troponin I < 0.01 ng/ml (0.00-0.034)
[2025-05-23] VITALS (11 sets, daily range): BP systolic 109–156; BP diastolic 69–106; PULSE 74–105; RESP 12–24; TEMP 36.4–36.9; O2SAT 90–96; BMI 43.3
[2025-05-23 02:21] LABS: Adenovirus,PCR Not Detected (NotDetected); Chlamydophila Pneumoniae, PCR Not Detected (NotDetected); Coronavirus 19, PCR Not Detected (NotDetected); Coronovirus HKU1,PCR Not Detected (NotDetected); Influenza A, PCR Not Detected (NotDetected); Influenza AH1, 2009 Not Detected (NotDetected); Influenza AH1, PCR Not Detected (NotDetected); Influenza AH3,PCR Not Detected (NotDetected); Influenza B, PCR Not Detected (NotDetected); Mycoplasma Pneumoniae, PCR Not Detected (NotDetected); Parainfluenza 1, PCR Not Detected (NotDetected); Parainfluenza 2, PCR Not Detected (NotDetected); Parainfluenza 3, PCR Not Detected (NotDetected); Parainfluenza 4, PCR Not Detected (NotDetected)
[2025-05-23 04:33] LABS: Microscopic, Urine URINE MICROSCOPIC (MICROSCOPIC)
[2025-05-23 05:09] LABS: Bilirubin,Urine Negative (Negative); Color,Urine YELLOW (Yellow); Glucose,Urine (UA) Negative (Negative); Ketones,Urine Negative (Negative); Leukocyte Esterase,Urine 1+ (Negative); PH,Urine 6.0 (5.0-8.5); Protein,Urine Negative (Negative); Specific Gravity, Urine 1.010 (1.005-1.030); Urobilinogen,Urine 0.2 EU/dl (0.2)
[2025-05-23 05:28] LABS: Bacteria,Urine Trace /lpf; RBC,Urine 20-50 #/hpf (0-3); Squamous Epithelial Cell,Urine Occasional #/hpf (0-5); WBC,Urine Occasional #/hpf (0-3)
[2025-05-23 06:12] LABS: POC Glucose,Bedside 105 gm/dL (70-110)
[2025-05-23 07:48] LABS: Hematocrit 43.5 % (37.0-47.0); Hemoglobin 14.4 g/dL (12.2-16.2); Immature Granulocytes % 1.0 %; Mean Corpuscular HGB Conc 33.1 g/dL (31.8-35.4); Mean Corpuscular Hemoglobin 29.4 pg (27.0-31.2); Mean Corpuscular Volume 88.8 fl (81-99); Nucleated Red Blood Cells % 0 %; Platelet Count 182 K/mm3 (142-424); Red Blood Count 4.90 M/mm3 (4.20-5.40); Red Cell Distribution Width-SD 54.5 fL; White Blood Count 7.8 K/mm3 (4.8-10.8)
[2025-05-23 08:16] LABS: Alanine Aminotransferase 13 U/L (12-78); Albumin Level 3.2 g/dl (3.5-5.0); Albumin/Globulin Ratio 1.0 (1.1-1.8); Alkaline Phosphatase 83 U/L (38-126); Anion Gap 15.7 mEq/L (5-15); Aspartate Amino Transferase 24 U/L (14-36); Bilirubin,Total 0.9 mg/dl (0.2-1.3); Blood Urea Nitrogen 12 mg/dl (7-17); Calcium 8.9 mg/dl (8.4-10.2); Carbon Dioxide 23 mmol/L (22.0-30.0); Chloride 98 mmol/L (98-107); Cholesterol 90 mg/dl (140-200); Creatinine Clearance Estimated 55 mL/min (50-200); Creatinine,Serum 1.00 mg/dl (0.52-1.04); Estimated Glomerular Filt Rate 56 ml/min (>60); GFR (African American) 68 ML/MIN (>60); Globulin 3.3 g/dL (1.3-3.2); Glucose 110 mg/dl (74-100); HDL Cholesterol 17 mg/dl (40-60); Magnesium 2.4 mg/dl (1.6-2.3); Potassium 3.7 mmoL/L (3.5-5.1); Sodium 133 mmol/L (136-145); Total Protein,Serum 6.5 g/dl (6.3-8.2); Triglycerides 112 mg/dl (30-150)
[2025-05-23] MEDS: NYSTATIN TOPICAL POWDER 30GM TP (08:44)
[2025-05-23] MEDS: AZITHROMYCIN 250MG TABLET 250 MG PO (08:44)
[2025-05-23] MEDS: ENOXAPARIN 150MG/ML SYRINGE 135 MG SUBCUT ×2 (08:44→20:25)
[2025-05-23 09:30] LABS: Thyroid Stimulating Hormone 1.85 uIU/mL (0.465-4.68)
[2025-05-23] MEDS: METOPROLOL SUCCINATE XL 50MG TABLET 50 MG PO (09:43)
--- NOTE | 2025-05-23 10:28 | HMH.PHAINT1 ---
Pharmacy Intervention Comments: MEDICATION RECONCILIATION COMPLETE USING EXTERNAL PHARMACY FILL HISTORY, TATIANA REPORT.
[2025-05-23 10:29] LABS: Hemoglobin A1C 5.0 % (4.0-6.0)
[2025-05-23 11:04] LABS: POC Glucose,Bedside 99 gm/dL (70-110)
--- NOTE | 2025-05-23 13:31 | EXP.PN ---
Subjective *Date: 05/23/25 *Time: 13:31 Interval history: Patient is doing well today, continues to be weak. PT recommendations pending. Pending ECHO, gallbladder ultrasound Sunday. Exam Data for Last 24 hours Vital signs and Labs for Last 24 Hours: Temp Pulse Resp BP Pulse Ox O2 Del Method O2 Flow Rate 97.9 F 85 22 131/92 H 94 L Room Air 2 05/23/25 12:05/23/25 12:05/23/25 12:05/23/25 12:05/23/25 12:05/23/25 13:00 05/23/25 11:00 Laboratory Results - last 24 hr 05/22/25 14:10: WBC 9.8, RBC 5.20, Hgb 15.4, Hct 46.1, MCV 88.7, MCH 29.6, MCHC 33.4, RDW 16.7, Plt Count 198, MPV 10.3, Neut % (Auto) 75.0, Lymph % (Auto) 15.5, [place] % (Auto) 7.7, Eos % (Auto) 0.7, Baso % (Auto) 0.4, Neut # (Auto) 7.4, Lymph # (Auto) 1.5, [place] # (Auto) 0.8, Eos # (Auto) 0.1, Baso # (Auto) 0.0, PT 13.1 H, INR 1.20 H, Sodium 132 L, Potassium 4.4, Chloride 99, Carbon Dioxide 20 L, Anion Gap 17.4 H, BUN 10, Creatinine 0.90, Estimated Creat Clear 55, Estimated GFR 64, Est GFR ( Amer) 77, Glucose 113 H, Calcium 9.1, Magnesium 1.7, Total Bilirubin 1.1, AST 22, ALT 16, Alkaline Phosphatase 87, Troponin I < 0.01, NT-Pro-B Natriuret Pep 1190 H, Total Protein 6.6, Albumin 3.2 L, Globulin 3.4 H, Albumin/Globulin Ratio 0.9 L, HCV Ab BARBARA w/Rflx PCR Qn Negative, HIV Ag/Ab Combo Qual Negative 05/22/25 14:13: VBG pH 7.39, VBG pCO2 37.0, VBG pO2 55.8 H, VBG HCO3 22.0 L, VBG Total CO2 23.2, VBG O2 Saturation 87.1 H, VBG Base Excess -2.9 L, VBG Lactic Acid 3.3 H 05/22/25 18:09: POC Glucose 106 05/22/25 18:43: Troponin I < 0.01 05/22/25 21:22: POC Glucose 130 H 05/22/25 22:22: Lactate 1.6, Troponin I < 0.01 05/23/25 02:00: Chlamy pneumoniae PCR Not detected, Adenovirus (PCR) Not detected, B. pertussis DNA (PCR) Not detected, Coronavirus OC43 (PCR) Not detected, Coronavirus HKU1 (PCR) Not detected, Coronavirus 229E (PCR) Not detected, SARS-CoV-2 (PCR) Not detected, Coronavirus NL63 (PCR) Not detected, Human Metapneumovir PCR Not detected, Influenza A (H1) PCR Not detected, Influ A (H1N1/09) PCR Not detected, Influenza A (H3) PCR Not detected, Influenza Type A (PCR) Not detected, Influenza Type B (PCR) Not detected, M. pneumoniae (PCR) Not detected, Parainfluenza 1 (PCR) Not detected, Parainfluenza 2 (PCR) Not detected, Parainfluenza 3 (PCR) Not detected, Parainfluenza 4 (PCR) Not detected, RSV (PCR) Not detected, Entero/Rhino (PCR) Not detected 05/23/25 04:31: Urine Color Yellow, Urine Appearance Clear, Urine pH 6.0, Ur Specific P[place] 1.010, Urine Protein Negative, Urine Glucose (UA) Negative, Urine Ketones Negative, Urine Blood 3+ A, Urine Nitrate Negative, Urine Bilirubin Negative, Urine Urobilinogen 0.2, Ur Leukocyte Esterase 1+ A, Urine RBC 20-50, Urine WBC Occasional, Ur Squamous Epith Cells Occasional, Urine Bacteria Trace 05/23/25 06:05: POC Glucose 105 05/23/25 07:20: WBC 7.8, RBC 4.90, Hgb 14.4, Hct 43.5, MCV 88.8, MCH 29.4, MCHC 33.1, RDW 16.8, Plt Count 182, MPV 10.7 H, Neut % (Auto) 65.2, Lymph % (Auto) 23.1, [place] % (Auto) 9.7 H, Eos % (Auto) 0.6, Baso % (Auto) 0.4, Neut # (Auto) 5.1, Lymph # (Auto) 1.8, [place] # (Auto) 0.8, Eos # (Auto) 0.1, Baso # (Auto) 0.0, Sodium 133 L, Potassium 3.7, Chloride 98, Carbon Dioxide 23, Anion Gap 15.7 H, BUN 12, Creatinine 1.00, Estimated Creat Clear 55, Estimated GFR 56 L, Est GFR ( Amer) 68, Glucose 110 H, Hemoglobin A1c 5.0, Calcium 8.9, Magnesium 2.4 H D, Total Bilirubin 0.9, AST 24, ALT 13, Alkaline Phosphatase 83, Total Protein 6.5, Albumin 3.2 L, Globulin 3.3 H, Albumin/Globulin Ratio 1.0 L, Triglycerides 112, Cholesterol 90 L, LDL Cholesterol Direct 47.31 L, VLDL Cholesterol 22, HDL Cholesterol 17 L, Cholesterol/HDL Ratio 5.3 H, TSH 1.85 05/23/25 10:57: POC Glucose 99 I & O for Last 24 hours: Intake & Output 05/20/25 05/21/25 05/22/25 05/23/25 23:59 23:59 23:59 23:59 Intake Total 144.167 / 144.167 270 / 270 Output Total 700 / 700 300 / 300 Balance -555.833 / -555.833 -30 / -30 Weight 124.483 kg 122.289 kg Constitutional Constitutional: no acute distress and chronically ill appearing *Routine HEENT Exam Head: Present normocephalic Eye: Present EOMI and PERRL ENT: Present mucous membranes moist *Routine Neck Exam Neck: Present supple; Absent lymphadenopathy *Routine Respiratory Exam Respiratory: Present CTA bilaterally *Routine Cardiovascular Exam Cardiovascular: Present RRR *Routine Abdominal Exam Abdominal: Present soft and normoactive bowel sounds; Absent tenderness *Routine Extremities Exam Extremities: Absent cyanosis, clubbing or edema Comments: Protrusion/prolapse of a perineal sac. *Routine Skin Exam Skin: Present warm; Absent rash *Routine Neurological Exam Neurological: Present alert and oriented X3 Assessment and Plan *Assessment and plan (1) Pulmonary edema: Status: Acute Category: Medical Code(s): J81.1 - Chronic pulmonary edema (2) Atrial fibrillation by electrocardiogram: Status: Acute Category: Medical Code(s): I48.91 - Unspecified atrial fibrillation (3) Heart failure: Status: Acute Category: Medical Code(s): I50.9 - Heart failure, unspecified Plan Sonya Burroughs is a 60-year-old female with a medical history significant for type 2 diabetes, chronic tobacco smoker, hypertension presents with shortness of breath. She states that began today and progressively got worse which point her family urged her to come to the ED. She states it got better after the epidural injection in the ED. Patient denies chest pain, fever/chills, abdominal pain. On my evaluation of patient, she looks quite disheveled and unkempt unfortunately. She apparently lives at home with her and daughter. Pleasant however. Workup in the ED significant for normal WBC, BNP 1190, CXR showing interstitial opacities, CTA chest With left pleural effusion and left perihilar ground glass opacities. CT abdomen showed markedly distended gallbladder with soft tissue along the superior margin of the gallbladder, worrisome for neoplasm. Patient was initially requiring oxygen, but weaned to room air in the ED. Additionally, she was found to be in A-fib RVR with heart rate in the 110s to 120s. She was given Lopressor 5 mg. Given these findings, ED provider discussed case with me and I decided to admit patient for new onset A-fib RVR, heart failure exacerbation, and probable pneumonia. #Heart failure exacerbation, new onset, unknown type ? Presented with shortness of breath, BNP elevated to 1190, CT imaging worrisome for pulmonary edema. ? Started p.o. Lasix 40 mg daily, ED via up to have improved with one-time dose of IV Lasix 60 mg. ? Follow-up ECHO on Sunday. ? A1c, TSH, LDL normal. ? Follow-up morning CMP, magnesium. #A-fib, new onset #RVR, resolved ? Presented with heart rate in the 110s to 130s, in the setting of heart failure exacerbation. Other vital signs stable. Heart rate in 80s today. ? Switch to metoprolol succinate 50 mg daily from twice daily dosing. ? Continue therapeutic Lovenox pending ECHO and cardiology evaluation for possible intervention. [id number] score 4. ? Follow-up ECHO. #Suspected community-acquired pneumonia #UTI ? CT chest suspicious for perihilar opacities, equivocal for edema versus pneumonia. On room air. ? UA grossly abnormal, urine culture pending. ? Continue ceftriaxone 1 g daily, azithromycin day 2/5. ? Follow-up sputum cultures. #Physical deconditioning ? PT/OT consulted, pending further recommendations. #Type 2 diabetes ? A1c 5.0%. Discontinue ACHS checks. #Distended gallbladder ? CT abdomen showed markedly distended gallbladder with soft tissue along the superior margin of the gallbladder, worrisome for neoplasm. LFTs normal. ? Follow-up gallbladder ultrasound. ? Will need close follow-up with oncology on discharge. #Protrusion/prolapse of a perineal sac ? Patient states she is following up with a plastic surgeon. #Hypertension ? Resume home medications once reconciled and appropriate. #Tobacco smoker ? Nicotine patch as needed. #Obesity ? Complicates all aspects of care. Full code DVT prophylaxis: Therapeutic Lovenox
--- NOTE | 2025-05-23 13:39 | PC.NURSE ---
pt left by bed with med surg staff to go to the second floor
--- NOTE | 2025-05-23 14:54 | HMH.PTEV ---
Physical Therapy Evaluation Rehab PT IP Evaluation Start: 05/22/25 18:54 Freq: ONCE Status: Active Protocol: Document 05/23/25 14:48 YOSEPHNEELIMALESLEE (Rec: 05/23/25 14:54 SAGAR [id number]) Subjective/History History History Sonya Burroughs is a 60-year-old female with a medical history significant for type 2 diabetes, chronic tobacco smoker, hypertension presents with shortness of breath. She states that began today and progressively got worse which point her family urged her to come to the ED. She states it got better after the epidural injection in the ED. Patient denies chest pain, fever/ chills, abdominal pain. On my evaluation of patient, she looks quite disheveled and unkempt unfortunately. She apparently lives at home with her and daughter. Pleasant however. Workup in the ED significant for normal WBC, BNP 1190, CXR showing interstitial opacities, CTA chest With left pleural effusion and left perihilar ground glass opacities. CT abdomen showed markedly distended gallbladder with soft tissue along the superior margin of the gallbladder, worrisome for neoplasm. Patient was initially requiring oxygen, but weaned to room air in the ED. Additionally, she was found to be in A-fib RVR with heart rate in the 110s to 120s. She was given Lopressor 5 mg. Given these findings, ED provider discussed case with me and I decided to admit patient for new onset A-fib RVR, heart failure exacerbation, and probable pneumonia. Subjective Subjective Pt is alert and oriented x3. Pt reports that she lives in a trailer with [address] with her and daughter. Pt reports that approximately 1 month ago, her legs began to weaken and she has not gotten out of bed since then. Pt reports that prior to that, she was fully independent with all mobility and ADLs. Pt reports that she has not walked in at least 1 month. New diagnosis of No cancer in past 12 months? [facility] How much help from another person do you currently need... Turning from your A lot back to your side while in a flat bed without using bedrails? Moving from lying on A lot back to sitting on the side of a flat bed without using bedrails? Moving to and from a A lot bed to a chair ( including a wheelchair)? Standing up from a A lot chair using your arms? (e.g., wheelchair, bedside chair) Walking in hospital Total room? Climbing 3-5 steps Total with a railing? Mobility Score 10 Mobility Level [facility] Mobility 4 Move to chair/commode Mobility Calculator Rehab PT IP Eval Objective Appearance Patient Behavior Appropriate,Patient Baseline Patient Orientation Person,Place,Time Difficulty following none instructions Speech Pattern Clear,Patient Baseline Ambulation Patient Able to Yes Ambulate Ambulation Observation IP General Gait Antalgic Gait,Shuffling Step Pattern Observation Ambulation Distance 1 (feet) Ambulation Assistive None Device Ambulation Ability Contact Guard/Hand Hold Balance Ability to Arise Able, uses arms to help Sitting Balance Leans or slides in chair Standing Balance Unsteady Dynamic Sitting Good Balance Ability Dynamic Standing Poor Balance Ability Transfers Bed Transfer Ability Moderate x 1 (50% assist) Sit to Stand Bed Moderate x 1 (50% assist) Transfer Ability Sit to Stand Chair Moderate x 1 (50% assist) Transfer Ability Rehab PT IP prob,goals,plan Problems Date of Evaluation: 05/23/25 PT IP Problems Bed Mobility,Transfers,Gait,Balance,Self care,Safety Rehab Potential Rehab Potential Fair Equipment Needs Assistive Devices Rolling / Wheeled Walker Plan PT Intervention Plan Bed Mobility,Transfers,Gait,Balance,Self care,Safety, Therapeutic Exercise PT Plan Frequency Daily Duration LOS Discharge Goals Bed Transfer Ability Moderate x 1 (50% assist) Sit to Stand Chair Moderate x 1 (50% assist) Transfer Ability Ambulation Assistive Rolling Walker Device Ambulation Distance 20 (feet) Discharge Plan PT Discharge Plan Pt was only able to take 1 step to her side upon standing before requiring to sit back down. Pt currently presents below baseline in all functional mobility, including bed mobility, transfers, and ambulation. The pt would benefit from skilled PT to address these impairments and to promote a safe discharge from the hospital. Pt is currently unfit for a discharge to home and would best benefit from a discharge to a SNF for further rehab upon discharge. Eval Complexity Eval Charge Codes 05322 - High Complexity PHYSICIAN CERTIFICATION: I certify the specified therapy services for Sonya Bonilla Burroughs are required, authorized, and reviewed every 30 days.
[2025-05-23] MEDS: FUROSEMIDE 40 MG TABLET PO (15:16)
[2025-05-23] MEDS: FAMOTIDINE 20MG TABLET 20 MG PO (15:19)
[2025-05-23] MEDS: ASPIRIN 81MG CHEWABLE TABLET 81 MG PO (15:19)
[2025-05-23] MEDS: CEFTRIAXONE 1 GM 1 GM in 0.9 % SODIUM CHLORIDE 50 ML IV (20:25)
[2025-05-23] MEDS: BUSPIRONE HCL 5 MG TABLET PO (20:27)
[2025-05-24] VITALS (7 sets, daily range): BP systolic 94–143; BP diastolic 71–84; PULSE 70–100; RESP 16–18; TEMP 36.5–36.7; O2SAT 92–97; BMI 42.4
--- NOTE | 2025-05-24 06:09 | PC.NURSE ---
Pt has remained A&OX4 and has tolerated room air. She has received IV abx. A new IV placed in right upper arm. She has remained afib on tele. Purewick has remianed in place. No complaints at this time, call light within reach.
[2025-05-24 06:43] LABS: Hematocrit 43.0 % (37.0-47.0); Hemoglobin 14.4 g/dL (12.2-16.2); Immature Granulocytes % 0.8 %; Mean Corpuscular HGB Conc 33.5 g/dL (31.8-35.4); Mean Corpuscular Hemoglobin 30.1 pg (27.0-31.2); Mean Corpuscular Volume 89.8 fl (81-99); Nucleated Red Blood Cells % 0 %; Platelet Count 170 K/mm3 (142-424); Red Blood Count 4.79 M/mm3 (4.20-5.40); Red Cell Distribution Width-SD 54.5 fL; White Blood Count 6.3 K/mm3 (4.8-10.8)
[2025-05-24 06:51] LABS: Albumin Level 3.1 g/dl (3.5-5.0); Chloride 98 mmol/L (98-107); Potassium 3.6 mmoL/L (3.5-5.1); Sodium 132 mmol/L (136-145)
[2025-05-24 06:54] LABS: Alanine Aminotransferase 14 U/L (12-78); Albumin/Globulin Ratio 0.8 (1.1-1.8); Alkaline Phosphatase 71 U/L (38-126); Anion Gap 12.6 mEq/L (5-15); Aspartate Amino Transferase 25 U/L (14-36); Bilirubin,Total 0.7 mg/dl (0.2-1.3); Blood Urea Nitrogen 13 mg/dl (7-17); Carbon Dioxide 25 mmol/L (22.0-30.0); Creatinine Clearance Estimated 55 mL/min (50-200); Creatinine,Serum 1.00 mg/dl (0.52-1.04); Estimated Glomerular Filt Rate 56 ml/min (>60); GFR (African American) 68 ML/MIN (>60); Globulin 3.8 g/dL (1.3-3.2); Total Protein,Serum 6.9 g/dl (6.3-8.2)
[2025-05-24 06:55] LABS: Calcium 9.0 mg/dl (8.4-10.2); Glucose 102 mg/dl (74-100); Magnesium 2.1 mg/dl (1.6-2.3)
[2025-05-24] MEDS: NYSTATIN TOPICAL POWDER 30GM TP ×4 (09:12→20:12)
[2025-05-24] MEDS: METOPROLOL SUCCINATE XL 50MG TABLET 50 MG PO (09:12)
[2025-05-24] MEDS: ENOXAPARIN 120MG/0.8ML SYRINGE 120 MG SUBCUT ×2 (09:12→20:11)
[2025-05-24] MEDS: VENLAFAXINE XR 75MG CAPSULE 150 MG PO (09:13)
[2025-05-24] MEDS: FAMOTIDINE 20MG TABLET 20 MG PO (09:13)
[2025-05-24] MEDS: FUROSEMIDE 40 MG TABLET PO (09:13)
[2025-05-24] MEDS: ASPIRIN 81MG CHEWABLE TABLET 81 MG PO (09:13)
[2025-05-24] MEDS: BUSPIRONE HCL 5 MG TABLET PO ×3 (09:14→20:12)
[2025-05-24] MEDS: AZITHROMYCIN 250MG TABLET 250 MG PO (09:15)
--- NOTE | 2025-05-24 13:19 | EXP.PN ---
Subjective *Date: 05/24/25 *Time: 13:19 Interval history: Patient doing well today, no chest pain, shortness of breath. States she continues to feel quite weak, unable to ambulate independently. Case management assisting with placement. Follow-up ECHO, gallbladder ultrasound, cardiology recommendations in the morning. Exam Data for Last 24 hours Vital signs and Labs for Last 24 Hours: Temp Pulse Resp BP Pulse Ox O2 Del Method O2 Flow Rate 97.7 F 74 18 131/76 96 Room Air 2 05/24/25 12:00 05/24/25 12:00 05/24/25 12:00 05/24/25 12:00 05/24/25 12:00 05/24/25 12:00 05/23/25 11:00 Laboratory Results - last 24 hr 05/24/25 06:22: WBC 6.3, RBC 4.79, Hgb 14.4, Hct 43.0, MCV 89.8, MCH 30.1, MCHC 33.5, RDW 16.8, Plt Count 170, MPV 10.5 H, Neut % (Auto) 57.5, Lymph % (Auto) 30.2, [place] % (Auto) 9.9 H, Eos % (Auto) 1.0, Baso % (Auto) 0.6, Neut # (Auto) 3.6, Lymph # (Auto) 1.9, [place] # (Auto) 0.6, Eos # (Auto) 0.1, Baso # (Auto) 0.0, Sodium 132 L, Potassium 3.6, Chloride 98, Carbon Dioxide 25, Anion Gap 12.6, BUN 13, Creatinine 1.00, Estimated Creat Clear 55, Estimated GFR 56 L, Est GFR ( Amer) 68, Glucose 102 H, Calcium 9.0, Magnesium 2.1 D, Total Bilirubin 0.7, AST 25, ALT 14, Alkaline Phosphatase 71, Total Protein 6.9, Albumin 3.1 L, Globulin 3.8 H, Albumin/Globulin Ratio 0.8 L I & O for Last 24 hours: Intake & Output 05/21/25 05/22/25 05/23/25 05/24/25 23:59 23:59 23:59 23:59 Intake Total 144.167 / 144.167 570 / 770 200 / 200 Output Total 700 / 700 300 / 300 500 / 500 Balance -555.833 / -555.833 270 / 470 -300 / -300 Weight 124.483 kg 122.289 kg 119.777 kg Constitutional Constitutional: no acute distress, obese and chronically ill appearing *Routine HEENT Exam Head: Present normocephalic Eye: Present EOMI and PERRL ENT: Present mucous membranes moist *Routine Neck Exam Neck: Present supple; Absent lymphadenopathy *Routine Respiratory Exam Respiratory: Present CTA bilaterally *Routine Cardiovascular Exam Cardiovascular: Present RRR *Routine Abdominal Exam Abdominal: Present soft and normoactive bowel sounds; Absent tenderness *Routine Extremities Exam Extremities: Absent cyanosis, clubbing or edema Comments: Protrusion/prolapse of a perineal sac. *Routine Skin Exam Skin: Present warm; Absent rash *Routine Neurological Exam Neurological: Present alert and oriented X3 Assessment and Plan *Assessment and plan (1) Pulmonary edema: Status: Acute Category: Medical Code(s): J81.1 - Chronic pulmonary edema (2) Atrial fibrillation by electrocardiogram: Status: Acute Category: Medical Code(s): I48.91 - Unspecified atrial fibrillation (3) Heart failure: Status: Acute Category: Medical Code(s): I50.9 - Heart failure, unspecified Plan Sonya Burroughs is a 60-year-old female with a medical history significant for type 2 diabetes, chronic tobacco smoker, hypertension presents with shortness of breath. She states that began today and progressively got worse which point her family urged her to come to the ED. She states it got better after the epidural injection in the ED. Patient denies chest pain, fever/chills, abdominal pain. On my evaluation of patient, she looks quite disheveled and unkempt unfortunately. She apparently lives at home with her and daughter. Pleasant however. Workup in the ED significant for normal WBC, BNP 1190, CXR showing interstitial opacities, CTA chest With left pleural effusion and left perihilar ground glass opacities. CT abdomen showed markedly distended gallbladder with soft tissue along the superior margin of the gallbladder, worrisome for neoplasm. Patient was initially requiring oxygen, but weaned to room air in the ED. Additionally, she was found to be in A-fib RVR with heart rate in the 110s to 120s. She was given Lopressor 5 mg. Given these findings, ED provider discussed case with me and I decided to admit patient for new onset A-fib RVR, heart failure exacerbation, and probable pneumonia. #Heart failure exacerbation, new onset, unknown type ? Presented with shortness of breath, BNP elevated to 1190, CT imaging worrisome for pulmonary edema. ? Continue p.o. Lasix 40 mg daily, ED via up to have improved with one-time dose of IV Lasix 60 mg. ? Follow-up ECHO on Sunday. ? A1c, TSH, LDL normal. ? Follow-up morning CMP, magnesium. Kidney function stable, creatinine 1.0, GFR 56. #A-fib, new onset #RVR, resolved ? Presented with heart rate in the 110s to 130s, in the setting of heart failure exacerbation. Other vital signs stable. Heart rate in 80s today. ? Switch to metoprolol succinate 50 mg daily from twice daily dosing. Rate well-controlled, 74 today. ? Continue therapeutic Lovenox pending ECHO and cardiology evaluation for possible intervention. [id number] score 4. ? Follow-up ECHO. #Suspected community-acquired pneumonia #UTI ? CT chest suspicious for perihilar opacities, equivocal for edema versus pneumonia. On room air. ? UA grossly abnormal, urine culture pending. ? Continue ceftriaxone 1 g daily, azithromycin day 3/5. ? Follow-up sputum cultures if patient is able to make sputum, urine culture. #Physical deconditioning ? PT/OT consulted, recommended SNF. Case management assisting with placement. #Type 2 diabetes ? A1c 5.0%. Discontinue ACHS checks. ? Consider weaning off versus continuing linagliptin 5 mg on discharge. #Distended gallbladder ? CT abdomen showed markedly distended gallbladder with soft tissue along the superior margin of the gallbladder, worrisome for neoplasm. LFTs normal. ? Follow-up gallbladder ultrasound on Sunday, n.p.o. at midnight. ? May need referral to surgical oncology if gallbladder corroborates findings on CT. #Protrusion/prolapse of a perineal sac ? Patient states she is following up with a plastic surgeon. #Hypertension ?Hold home valsartan 160 mg as blood pressure stable. Currently 131/76. #Tobacco smoker ? Nicotine patch as needed. #Obesity ? Complicates all aspects of care. May benefit from GLP-1 agonist on discharge considering comorbidities. Full code DVT prophylaxis: Therapeutic Lovenox
--- NOTE | 2025-05-24 18:13 | PC.NURSE ---
Pt is A&Ox4. Vital signs stable tolerating room air. Pt has had no complaints of pain this shift. Remains in a-flutter on tele. Rate controlled. Nystatin powder applied to excoriated areas per MAR. Pt offered turn and repositioning. Pt refused. Pt resting comfortably in bed with no further needs voiced at this time. Call light within reach.
[2025-05-24] MEDS: SODIUM CHLORIDE 3% 15ML NEB 3 ML IH (19:20)
[2025-05-24] MEDS: CEFTRIAXONE 1 GM 1 GM in 0.9 % SODIUM CHLORIDE 50 ML IV (20:11)
[2025-05-25] VITALS (7 sets, daily range): BP systolic 116–138; BP diastolic 66–82; PULSE 58–110; RESP 16–18; TEMP 36.4–36.8; O2SAT 92–94; BMI 43.7
--- NOTE | 2025-05-25 06:00 | US_ITS ---
FINAL REPORT TECHNIQUE: Sonographic images of the right upper quadrant were obtained. CLINICAL HISTORY: Distended gallbladder on CT FINDINGS: PANCREAS: Tail of the pancreas is obscured. Head of the pancreas is normal.. LIVER: Homogeneous. No focal hepatic lesion. No intrahepatic biliary ductal dilatation. GALLBLADDER: Gallbladder is distended. There is layering sludge as well as a nodular dependent filling defect which could represent tumefactive sludge. Mass felt less likely. COMMON DUCT: 8 mm. Dilated for age. RIGHT KIDNEY: The right kidney measures 11.2 cm. There is no hydronephrosis, mass, or stone. FREE FLUID: None. IMPRESSION: Distended gallbladder with sludge and either tumefactive sludge or mass. There is dilatation of the common duct. Reviewed, Interpreted and Dictated by Alicia Oconnor MD Transcribed by Allison Lam Authenticated and [facility]
--- NOTE | 2025-05-25 06:00 | CA_ITS ---
APPROVED REPORT EXAM: Comprehensive 2D, Doppler, and color-flow Echocardiogram with contrast Roll Edge Stitcher Hand: Tammie Baxter CRT Ht: 5 ft 6 in Wt: 264lbs BSA: 2.25 BP: 144/88 mmHg Indications: Chest Pain, Atrial Fibrillation, smoker, pulmonary edema Echo Enhancing Agent Indication: Endocardial border delineation Agent(s) / Amount(s) Used: Definity 2 cc Comments: Definity given M-Mode Dimensions RVDd 3.18 cm (0.9-2.6) LA Diam 5.07 cm (1.9-4.0) LVDd 4.35 cm (3.5-5.7) LVDs 2.94 cm (3.5-5.7) IVSd 1.73 cm (0.6-1.1) PWd 0.93 cm (0.6-1.1) EF (Teich) 61.00% FS 32.40% EDV (Teich) 85.40 mL ESV (Teich) 33.30 mL LV Diastology MED A' 4.50 cm/s LAT A' 2.40 cm/s Aortic Valve AO Peak GR. 3.30 mmHg Pulmonary Valve PV Peak Velocity 95.0 (50-150 cm/s) Tricuspid Valve TR P. Velocity 218.00 cm/s RAP Estimate 10.00 mmHg RVSP 28.90 mmHg Left Ventricle The left ventricle is normal size. Left ventricular systolic function is low normal. There is increased left ventricular wall thickness. The septum is asynchronous. Transmitral Doppler flow pattern suggests impaired LV relaxation. No left ventricle thrombus noted on this study. LVEF is 50%. Right Ventricle The right ventricle is mildly dilated. The right ventricular systolic function is normal. Atria The left atrium is moderately dilated. The right atrium is moderately dilated. The interatrial septum is not well-visualized. Aortic Valve The aortic valve is mildly thickened. There is no hemodynamically significant aortic valvular stenosis. No aortic regurgitation is present. Mitral Valve The mitral valve is normal in structure. No evidence of mitral valve stenosis. Trace mitral regurgitation is present. Tricuspid Valve The tricuspid valve leaflets are thin and pliable. Trace tricuspid regurgitation. There is insufficient TR jet to estimate RVSP. Pulmonic Valve The pulmonary valve is grossly normal in structure. Mild pulmonic valve regurgitation is present. Great Vessels The aortic root is normal in size. IVC is normal in size and collapses >50% with inspiration. Pericardium There is no pericardial effusion. Other Information Study Quality: Technically Difficult Conclusion Technically difficult study. Low normal LV systolic function (LVEF 50%). Mild RV dilation. Biatrial dilation. Mild PI. Electronically signed by : Laurel Ramsey MD 05/25/2025 13:06:20
[2025-05-25 06:47] LABS: Hematocrit 43.0 % (37.0-47.0); Hemoglobin 14.1 g/dL (12.2-16.2); Immature Granulocytes % 0.5 %; Mean Corpuscular HGB Conc 32.8 g/dL (31.8-35.4); Mean Corpuscular Hemoglobin 29.4 pg (27.0-31.2); Mean Corpuscular Volume 89.6 fl (81-99); Nucleated Red Blood Cells % 0 %; Platelet Count 159 K/mm3 (142-424); Red Blood Count 4.80 M/mm3 (4.20-5.40); Red Cell Distribution Width-SD 54.7 fL; White Blood Count 5.5 K/mm3 (4.8-10.8)
[2025-05-25 07:26] LABS: Albumin Level 3.0 g/dl (3.5-5.0); Chloride 96 mmol/L (98-107); Potassium 3.5 mmoL/L (3.5-5.1); Sodium 131 mmol/L (136-145)
[2025-05-25 07:29] LABS: Alanine Aminotransferase 11 U/L (12-78); Albumin/Globulin Ratio 0.8 (1.1-1.8); Alkaline Phosphatase 68 U/L (38-126); Anion Gap 11.5 mEq/L (5-15); Aspartate Amino Transferase 25 U/L (14-36); Bilirubin,Total 0.6 mg/dl (0.2-1.3); Blood Urea Nitrogen 14 mg/dl (7-17); Calcium 8.5 mg/dl (8.4-10.2); Carbon Dioxide 27 mmol/L (22.0-30.0); Creatinine Clearance Estimated 55 mL/min (50-200); Creatinine,Serum 0.90 mg/dl (0.52-1.04); Estimated Glomerular Filt Rate 64 ml/min (>60); GFR (African American) 77 ML/MIN (>60); Globulin 3.7 g/dL (1.3-3.2); Glucose 67 mg/dl (74-100); Magnesium 2.0 mg/dl (1.6-2.3); Total Protein,Serum 6.7 g/dl (6.3-8.2)
[2025-05-25] MEDS: POTASSIUM CHLORIDE 20MEQ TAB 40 MEQ PO ×2 (08:26→13:52)
[2025-05-25] MEDS: VENLAFAXINE XR 75MG CAPSULE 150 MG PO (08:27)
[2025-05-25] MEDS: FUROSEMIDE 40 MG TABLET PO (08:27)
[2025-05-25] MEDS: AZITHROMYCIN 250MG TABLET 250 MG PO (08:27)
[2025-05-25] MEDS: METOPROLOL SUCCINATE XL 50MG TABLET 50 MG PO (08:27)
[2025-05-25] MEDS: ASPIRIN 81MG CHEWABLE TABLET 81 MG PO (08:27)
[2025-05-25] MEDS: BUSPIRONE HCL 5 MG TABLET PO ×3 (08:28→20:11)
[2025-05-25] MEDS: FAMOTIDINE 20MG TABLET 20 MG PO (08:28)
[2025-05-25] MEDS: NYSTATIN TOPICAL POWDER 30GM TP ×4 (08:29→20:12)
--- NOTE | 2025-05-25 09:01 | SW/DCPLANNER ---
Addendum entered by Misa Bey 05/26/25 11:42: Outpatient PT is scheduled for 06/08 at 11AM. I will set up [employer] [facility] for transportation. Addendum entered by Misa Bey 05/26/25 10:18: Patient still prefers to return home w/ family ( and daughter) but agreeable to return to [facility] outpatient PT services if has transportation assistance. Patient continues to refuse placement. CM will continue to follow up. Original Note: I spoke w/ patient this AM regarding plans once medically stable for discharge. PT evaluated patient and recommended placement. Patient and I discussed placement under her insurance (Medicaid) and patient voiced that she is not interested at this time. Patient stated that she lives at home w/ her and would be interested in home health (not available due to insurance) vs outpatient PT at [facility]. Patient is agreeable to outpatient PT services at [facility] pending transportation. I will speak w/ outpatient therapy and [employer]. Discharge date is unknown at this time. CM will continue to follow up.
[2025-05-25] MEDS: DEFINITY US ECHO CONTRAST 2ML INJ 2 MG IV (09:11)
[2025-05-25] MEDS: ENOXAPARIN 150MG/ML SYRINGE 125 MG SUBCUT ×2 (09:20→20:11)
--- NOTE | 2025-05-25 11:33 | US_ITS ---
PROCEDURE INFORMATION: Exam: US Pelvis, Complete, Non-Obstetric Exam date and time: 05/25/2025 12:08 PM Age: 60 years old Clinical indication: Other: Pmb; Additional info: Postmenopausal bleeding TECHNIQUE: Imaging protocol: Transabdominal pelvic nonobstetric ultrasound. Complete exam. Real time ultrasound with image documentation. COMPARISON: CT ABDOMEN PELVIS W CON 05/22/2025 3:27 PM FINDINGS: Uterus: The uterus is normal measuring 9 x 3 x 6 cm. Nabothian cysts are noted in the cervix. The endometrium is normal measuring 8 mm in thickness. Cystic area is noted beside the endometrium. Right ovary/adnexa: The right ovary measures 4 x 4 x 1.7 cm. Difficult to evaluate blood flow. Left ovary/adnexa: The left ovary measures 3.6 x 2.5 x 2.5 cm. Difficult to evaluate blood flow. Intraperitoneal space: No intraperitoneal fluid. Urinary bladder: Normal. Soft tissues: Patient has a large hernia in the anterior pelvic wall. IMPRESSION: 1. Cystic area in the myometrium besides the endometrium may represent a myometrial cyst, adenomyosis, cystic degeneration of leiomyoma. 2. Patient has a large hernia in the anterior pelvic wall.
--- NOTE | 2025-05-25 11:42 | EXP.CARD.CON ---
History of Present Illness History of Present Illness Consult date: 05/25/25 Requesting physician: Anton Brantley Consult reason: atrial fibrillation and congestive heart failure Chief complaint: Shortness of breath History of present illness: This is a 60-year-old white female presented to the emergency department with complaints of shortness of breath. She states the pain began on the day of admission and progressively got worse until it was severe and that is when she decided to come to the emergency department. She denies any chest pain or pressure. She denies any lower extremity edema. She denies any fever, chills, nausea, vomiting or diarrhea. On arrival to the emergency department the patient was found to have an elevated BNP and a chest x-ray showing interstitial opacities. CTA of the chest did show left pleural effusion and left perihilar ground opacities. CT of her abdomen was concerning for possible neoplasm. She was also found to be in atrial fibrillation with RVR, heart rate was in the 120s. She was treated with IV Lopressor and her heart rate has improved. She remains in atrial fibrillation this morning but is rate controlled. [facility] Disclaimer: The information contained in this section may have been updated after the patient was seen, as this information can be updated by other users. Medical History Allergic rhinitis Osteoarthritis Hypertension Diabetes Surgical History History of colonoscopy Family History (Updated 05/22/25 @ 20:56 by Sruthi Gonzalez RN) Other No significant family history Social History (Updated 05/22/25 @ 20:55 by Sruthi Gonzalez RN) Smoking Status: Current every day smoker tobacco type: cigarettes packs per day: 1 second hand exposure: Yes alcohol intake: never substance use type: marijuana current occupational status: unemployed Travel in the last 8 weeks?: None household members: spouse housing: house current occupational exposures/hazards: No caffeine: Yes Have you lived/traveled outside [place] in past 30 days?: No Contact w/someone who lives/traveled outside [place] past 30 days?: No Exposure to someone with infectious disease in past 14 days?: No Do you have a fever (greater than 100.4 F or 38 C)?: No Have you tested positive for COVID-19?: No Exposed to someone with COVID-19 in past 14 days?: No Do you have a sore throat?: No Do you have a cough?: No Do you have any weakness?: No Do you have any diarrhea?: No Are you experiencing any unusual bleeding?: No Do you have any muscle aches/pain?: No Do you have any abdominal pain?: No Are you experiencing loss of taste or smell?: No Review of Systems Review of Systems Review of systems:: pertinent systems reviewed and negative unless documented below Constitutional Constitutional: Reports system reviewed and no additional complaints, except as documented, Reports fatigue and Reports lethargy Eyes Eyes: Reports system reviewed and no additional complaints, except as documented ENT Ears, Nose, Mouth, and Throat: Reports system reviewed and no additional complaints, except as documented *Cardiovascular Cardiovascular: Reports system reviewed and no additional complaints, except as documented, Reports dyspnea, Reports dyspnea on exertion, Reports irregular heart rhythm, Reports orthopnea, Reports palpitations and Reports rapid heart rate *Respiratory Respiratory: Reports system reviewed and no additional complaints, except as documented, Reports dyspnea and Reports dyspnea on exertion *Gastrointestinal Gastrointestinal: Reports system reviewed and no additional complaints, except as documented *Genitourinary Genitourinary: Reports system reviewed and no additional complaints, except as documented *Musculoskeletal Musculoskeletal: Reports system reviewed and no additional complaints, except as documented Integumentary/Breasts Skin/Breast: Reports system reviewed and no additional complaints, except as documented *Neurologic Neurologic: Reports system reviewed and no additional complaints, except as documented Psychiatric Psychiatric: Reports system reviewed and no additional complaints, except as documented Endocrine Endocrine: Reports system reviewed and no additional complaints, except as documented, Reports fatigue and Reports palpitations Hematologic/Lymphatic Hematologic/Lymphatic: Reports system reviewed and no additional complaints, except as documented Allergic/Immunologic Allergic/Immunologic: Reports system reviewed and no additional complaints, except as documented Exam Data for Last 24 hours Vital signs and Labs for Last 24 Hours: Temp Pulse Resp BP Pulse Ox O2 Del Method O2 Flow Rate 97.7 F 90 18 138/72 92 L Room Air 2 05/25/25 08:00 05/25/25 08:00 05/25/25 08:00 05/25/25 08:00 05/25/25 08:00 05/25/25 09:00 05/23/25 11:00 Laboratory Results - last 24 hr 05/25/25 05:20: WBC 5.5, RBC 4.80, Hgb 14.1, Hct 43.0, MCV 89.6, MCH 29.4, MCHC 32.8, RDW 16.7, Plt Count 159, MPV 11.0 H, Neut % (Auto) 57.4, Lymph % (Auto) 31.9, [place] % (Auto) 8.6, Eos % (Auto) 1.1, Baso % (Auto) 0.5, Neut # (Auto) 3.1, Lymph # (Auto) 1.7, [place] # (Auto) 0.5, Eos # (Auto) 0.1, Baso # (Auto) 0.0, Sodium 131 L, Potassium 3.5, Chloride 96 L, Carbon Dioxide 27, Anion Gap 11.5, BUN 14, Creatinine 0.90, Estimated Creat Clear 55, Estimated GFR 64, Est GFR ( Amer) 77, Glucose 67 L D, Calcium 8.5, Magnesium 2.0, Total Bilirubin 0.6, AST 25, ALT 11 L, Alkaline Phosphatase 68, Total Protein 6.7, Albumin 3.0 L, Globulin 3.7 H, Albumin/Globulin Ratio 0.8 L I & O for Last 24 hours: Intake & Output 05/22/25 05/23/25 05/24/25 05/25/25 23:59 23:59 23:59 23:59 Intake Total 144.167 / 144.167 570 / 770 610 / 760 150 / 150 Output Total 700 / 700 300 / 300 1000 / 1000 Balance -555.833 / -555.833 270 / 470 -390 / -240 150 / 150 Weight 274 lb 7 oz 269 lb 9.6 oz 264 lb 1 oz 272 lb 6 oz Microbiology Reports for the Last 24 Hours: Microbiology 05/23/25 04:31 Urine,Clean Catch Urine Culture - Final Multiple organisms, suggests contamination. Constitutional Constitutional: no acute distress and morbidly obese *Routine HEENT Exam Head: Present normocephalic and atraumatic ENT: Present mucous membranes moist *Routine Neck Exam Neck: Present supple, full ROM and normal carotid upstroke; Absent JVD, carotid bruit or lymphadenopathy *Routine Respiratory Exam Respiratory: Present CTA bilaterally, normal respiratory effort, able to speak in complete sentences and symmetric chest movement *Routine Cardiovascular Exam Cardiovascular: Present Normal S1, Normal S2 and irregularly irregular; Absent murmur or gallop *Routine Abdominal Exam Abdominal: Present soft and normoactive bowel sounds; Absent tenderness, distended or organomegaly *Routine Extremities Exam Extremities: Present full ROM, pulses intact and normal capillary refill; Absent cyanosis, clubbing or edema *Routine Skin Exam Skin: Present intact and warm; Absent erythema *Routine Neurological Exam Neurological: Present alert, oriented X3 and CN II-XII intact; Absent sensory deficit or motor deficit Routine Psychiatric Exam Psychiatric: Present normal affect Meds Home Medications and Allergies Home Medications ?Medication ?Instructions ?Recorded ?Confirmed ?Type famotidine 20 mg tablet 20 mg PO DAILY #90 tabs 02/25/24 05/23/25 Rx valsartan 160 mg tablet 160 mg PO DAILY #30 tabs 11/27/24 05/23/25 Rx albuterol sulfate 90 mcg/actuation 2 puff inhalation Q6HP PRN 05/23/25 05/23/25 History aerosol inhaler Shortness Of Breath Or Wheezing aspirin 81 mg chewable tablet 81 mg PO DAILY 05/23/25 05/23/25 History buspirone 5 mg tablet 5 mg PO TID 05/23/25 05/23/25 History cetirizine 10 mg tablet 10 mg PO DAILY 05/23/25 05/23/25 History cholecalciferol (vitamin D3) 50 50 mcg PO DAILY 05/23/25 05/23/25 History mcg (2,000 unit) capsule (Vitamin D3) ergocalciferol (vitamin D2) 1,250 1,250 mcg PO .TWICE WEEKLY 05/23/25 05/23/25 History mcg (50,000 unit) capsule linagliptin 5 mg tablet (Tradjenta) 5 mg PO DAILY 05/23/25 05/23/25 History oxybutynin chloride 5 mg tablet 5 mg PO TID 05/23/25 05/23/25 History venlafaxine 150 mg 150 mg PO DAILY 05/23/25 05/23/25 History capsule,extended release 24 hr New Prescriptions to Start Prescriptions: Allergies Allergy/AdvReac Type Severity Reaction Status Date / Time Penicillins Allergy Unknown Hives Verified 02/06/24 15:09 Assessment and Plan *Assessment and plan (1) Pulmonary edema: Status: Acute Qualifiers: Chronicity: acute Qualified Code(s): J81.0 - Acute pulmonary edema Category: Medical Code(s): J81.1 - Chronic pulmonary edema (2) Heart failure: Status: Acute Qualifiers: Heart failure chronicity: acute on chronic Heart failure type: unspecified Qualified Code(s): I50.9 - Heart failure, unspecified Category: Medical Code(s): I50.9 - Heart failure, unspecified (3) Atrial fibrillation by electrocardiogram: Status: Acute Category: Medical Code(s): I48.91 - Unspecified atrial fibrillation (4) Diabetes: Status: Chronic Qualifiers: Diabetes mellitus complication status: without complication Diabetes mellitus usp insulin use: without termite exterminator helper use Diabetes mellitus type: type 2 Qualified Code(s): E11.9 - Type 2 diabetes mellitus without complications Category: Medical Code(s): E11.9 - Type 2 diabetes mellitus without complications (5) Hypertension: Status: Chronic Qualifiers: Hypertension type: primary hypertension Qualified Code(s): I10 - Essential (primary) hypertension Category: Medical Code(s): I10 - Essential (primary) hypertension (6) Morbid obesity: Status: Acute Category: Medical Code(s): E66.01 - Morbid (severe) obesity due to excess calories (7) Gallbladder mass: Status: Acute Category: Medical Code(s): K82.8 - Other specified diseases of gallbladder Plan Plan: 1. The patient was admitted to the hospital and is currently being treated for pulmonary edema and acute exacerbation of CHF. Her BNP was elevated on admission. She also had a left pleural effusion. Will continue to diurese the patient today with Lasix 40 mg IV twice daily. 2. Will obtain an echocardiogram to evaluate her LV function. 3. The patient was in atrial fibrillation with RVR on admission. She was treated with IV Lopressor and she did rate control. She has been started on Toprol 50 mg p.o. daily. Will continue this. 4. The patient will need long-term anticoagulation. She is currently on Lovenox. Prior to discharge home she will need to be switched over to Xarelto or Eliquis. Will hold off on this until she is closer to discharge and continue Lovenox. 5. The patient does have a gallbladder mass that is being worked up. Will defer to the hospitalist. She may need a GI/surgery consult. 6. The patient also has a mass to her vulvar or peritoneal area. REFERRAL COORDINATOR has been consulted. Will defer. 7. Her blood pressure is well-controlled. Continue valsartan. 8. The patient is diabetic. She will need aggressive control of her diabetes. Will defer this to the hospitalist. 9. Her LDL goal is less than 100. Her LDL is 47. 10. Further recommendations will be made pending the patient's response to treatment. Thank you for the opportunity to help participate in the care of this patient. All recommendations and orders are per Dr. Ramsey.
[2025-05-25] MEDS: ONDANSETRON 4MG/2ML VIAL 4 MG IV (12:47)
[2025-05-25] MEDS: FUROSEMIDE 40MG/4ML VIAL 40 MG IV ×2 (12:51→15:46)
--- NOTE | 2025-05-25 13:21 | HMH.OTEV ---
OT Evaluation Rehab OT IP Evaluation Start: 05/25/25 10:42 Freq: ONCE Status: Active Protocol: Document 05/25/25 13:09 JOVANNI (Rec: 05/25/25 13:20 JOVANNI [id number]) Rehab OT IP Assessment Subjective History Sonya Burroughs is a 60-year-old female with a medical history significant for type 2 diabetes, chronic tobacco smoker, hypertension presents with shortness of breath. She states that began today and progressively got worse which point her family urged her to come to the ED. She states it got better after the epidural injection in the ED. Patient denies chest pain, fever/ chills, abdominal pain. On my evaluation of patient, she looks quite disheveled and unkempt unfortunately. She apparently lives at home with her and daughter. Pleasant however. Workup in the ED significant for normal WBC, BNP 1190, CXR showing interstitial opacities, CTA chest With left pleural effusion and left perihilar ground glass opacities. CT abdomen showed markedly distended gallbladder with soft tissue along the superior margin of the gallbladder, worrisome for neoplasm. Patient was initially requiring oxygen, but weaned to room air in the ED. Additionally, she was found to be in A-fib RVR with heart rate in the 110s to 120s. She was given Lopressor 5 mg. Given these findings, ED provider discussed case with me and I decided to admit patient for new onset A-fib RVR, heart failure exacerbation, and probable pneumonia. Patient lives in a mobile home with 5-6 COREY. Lives with , daughter and daughter's boyfriend. Patient stated to sleep and sit on the couch and being incontinent during the day. Patient's daughter will change incontinent pads during the day as needed. Patient stated to have a RW but does not use it at home due to limited mobility. Subjective It hurts to sit up. Instructed Patient on proper hand and foot placement to complete bed mobility from supine->sit @ EOB requiring Max A. Patient unable to sit up without support due to being discomfort in navneet area. Patient will required at least 2 assist for transfers and fx'l mobility for safety. Left Patient sitting upright in bed with needs met. Objective Patient Orientation Person,Place,Name,Birthday Right Upper WFL Extremity Gross ROM Left Upper Extremity WFL Gross ROM Bed Mobility bed mobility - supine/sit Assist Level Maximum x 1 (75% assist) Rehab OT IP prob,goals,plan Problems Date of Evaluation: 05/25/25 OT IP Problems Bed Mobility,Transfers,Balance,Self care,Safety Rehab Potential Rehab Potential Good Equipment Needs Assistive Devices Rolling / Wheeled Walker Plan OT intervention Plan Bed Mobility,Transfers,Balance,Self care,Safety, Therapeutic Exercise OT Plan Frequency Daily Duration LOS Discharge Goals Bed Mobility Ability Assistance x1 Sit to Stand Chair Moderate x 2 (50% assist) Transfer Ability Discharge Plan OT Discharge Plan Patient will require 24/ supervision and assistance. Patient would benefit from continued skilled therapy and nursing care to address ADLs and functional mobility. Patient to continue receiving skilled OT services at [facility] until medically discharged. Eval Complexity Eval Charge Codes 31980 - Low Complexity PHYSICIAN CERTIFICATION: I certify the specified therapy services for Sonya Burroughs are required, authorized, and reviewed every 30 days.
--- NOTE | 2025-05-25 14:04 | HMH.PTWOUND ---
Rehab Wound Evaluation Rehab IP Wound Evaluation Start: 05/22/25 18:54 Freq: ONCE Status: Complete Protocol: Document 05/25/25 14:01 IRINEO (Rec: 05/25/25 14:04 PHOJEAN PIERRE [id number]) Rehab PT Wound Assessment Subjective Subjective 60 yof adm to [facility] with a-fib and pulmonary edema. She presented upon admission with small open abdominal wound necessitating a PT inpatient wound care consult. Wound Abdomen Wound Type unknown Is This a Chronic Yes Wound Wound Length (cm) 1.5 Wound Width (cm) 1.5 Wound Depth (cm) 0.1 Wound Bed Appearance Beefy Red Percentage 100 Granulated (%) Wound Margins Well Defined Description Primary Dressing Composite Dressing Change Tolerated Well Patient Tolerance Plan/Recommendation Comment Currently pt has no need for advanced wound care or wound debridement. Nursing staff is caring for wound appropriately at this time. Thank you for involving the wound care team in the care of this patient. PHYSICIAN CERTIFICATION: I certify the specified therapy services for Sonya Burroughs are required, authorized, and reviewed every 30 days.
--- OUTSIDE RECORDS SUMMARY | 2025-05-25 14:43 | XMS_ITS | Encounter Summary ---
Author Organization Healthcare Address [address] [place] [address] Care Team Providers Care Construction Plumber Name Role Phone Alice Narvaez Primary Care Provider Reason for Visit * Reason Comments Med Refill Encounter Details Date Type Department Care Team ([facility] st Contact Info) Description 06/10/2024 Refill Pav CC Head, Neck & Respiratory [address] [facility], [address] [place] [address] Nika Hernandez, COMMUNITY HEALTH NAVIGATOR [address] [place] [id number] Coronary artery disease involving [place] heart without angina pectoris, unspecified vessel or lesion type Social History Tobacco Use Types Packs/Day Years Used Date Smoking Tobacco: Every Day Cigarettes Smokeless Tobacco: Never Alcohol Use Standard Drinks/Week Comments Not Currently 0 (1 standard drink = 0.6 oz pur e alcohol) PHQ-2 Answer Date Recorded Patient Health Questionnaire-2 Score 0 06/27/2023 PHQ-2A Answer Date Recorded Patient Health Questionnaire-2 Score 0 06/27/2023 Comments Unknown Sex and Gender Information Value Date Recorded Sex Assigned at Female 01/24/2022 4:52 PM EDT Legal Sex Female 6:29 PM EDT Gender Identity Female 01/24/2022 4:52 PM EDT Sexual Orientation Straight 01/24/2022 4: 52 PM EDT documented as of this encounter Miscellaneous Notes * Telephone Encounter - Chioma, Sheri N, MA - 06/11/2024 8:10 AM EDT Patient will need an appt documented in this encounter Plan of Treatment Not on file documented as of this encounter Visit Diagnoses Diagnosis Coronary artery disease involving [place] heart without angina pectoris, unspecified vessel or lesion type documented in this encounter Additional Health Concerns Assessment Noted Time A fall risk assessment has been complete d for the patient 06/27/2023 11:20 AM EST A Body Mass Index follow-up plan has been documented for the patient 05/01/2024 4:31 PM EDT documented as of this encounter Care Teams Construction Plumber Relationship Specialty Start Date End Date Alice Narvaez PA [address] [place] [address] PCP - General 12/24/20 documented as of this encounter
--- OUTSIDE RECORDS SUMMARY | 2025-05-25 14:43 | XMS_ITS | Encounter Summary ---
Author Organization Healthcare Address [address] [place] [address] Care Team Providers Care Balloon Tester Name Role Phone Alice Narvaez Primary Care Provider Encounter Details Date Type Department Care Team (Late st Contact Info) Description 02/08/2023 Orders Only External Location [address] [place] [address] Cliff Hargrove MD [address] [address] Social History Tobacco Use Types Packs/Day Years Used Date Smoking Tobacco: Every Day Comments Unknown Sex and Gender Information Value Date Recorded Sex Assigned at Female 01/24/2022 4:52 PM EDT Legal Sex Female 6:29 PM EDT Gender Identity Female 01/24/2022 4:52 PM EDT Sexual Orientation Straight 01/24/2022 4: 52 PM EDT documented as of this encounter Plan of Treatment Not on file documented as of this encounter Procedures Procedure Name Priority Date/Time Associated Diagnosis Comments CT ABDOMEN PELVIS W IV CONTRAST 02/08/2023 3:27 PM EDT documented in this encounter Results * CT Abdomen Pelvis w IV Contrast (02/08/2023 3:27 PM EDT) Anatomical Region Laterality Modality Abdomen, Pelvis Computed Tomogra phy 02/08/2023 3:27 PM EDT us Cliff Hargrove MD IMG CT PROCEDURES Final Result documented in this encounter Visit Diagnoses Not on filedocumented in this encounter Care Teams Balloon Tester Relationship Specialty Start Date End Date Alice Narvaez PA [address] [place] [address] PCP - General 12/24/20 documented as of this encounter
--- OUTSIDE RECORDS SUMMARY | 2025-05-25 14:43 | XMS_ITS | Clinical Summary ---
Author Organization Healthcare Address [address] [place] [address] Care Team Providers Care City Comptroller Name Role Phone Willis Narvaezie Em CRESPO Primary Care Provider [phone] Allergies Active Allergy Reactions Criticality Noted Date Comments Penicillins Rash,Unknown - Patie nt states they do not know rxn details Low 12/22/2010 Medications albuterol (Ventolin HFA) 108 (90 Base) MCG/ACT inhaler 0 Active lansoprazole (Prevacid) [address] capsule TAKE 1 CAPSULE EVERY MORNING DAILY. 0 Active oxybutynin (Ditropan) 5 MG tablet TAKE 1 TABLET 3 times daily 0 Active venlafaxine XR (Effoxor-XR) 150 MG 24 hr capsule TAKE 1 CAPSULE ONCE DAILY WITH FOOD. 0 Active busPIRone (Buspar) 5 MG tablet Take 1 tablet (5 mg) by mouth 3 (three) times a day. 3 Active ergocalciferol 1.25 MG (28361 UT) capsule Take 1 capsule (50,000 Units) by mouth 2 (two) times a week. 3 Active Tradjenta 5 MG tablet TAKE 1 TABLET BY MOUTH ONCE DAILY FOR DIABETES. 3 Active traMADol (Ultram) 50 MG tablet TAKE 1 TABLET BY MOUTH 3 TIMES DAILY NEEDED FOR PAIN 3 Active cholecalciferol (Vitamin D-3) 50 MCG (2000 UT) capsule Take 1 capsule (2,000 Units) by mouth. 2x weekly 3 Active ketorolac (Toradol) 10 MG tablet Take 1 tablet (10 mg) by mouth every 6 (six) hours if needed for moderate pain. 20 tablet 4 Active valsartan (Diovan) 160 MG tabletIndications:H TN, goal below 130/80 Take 1 Tablet by mouth once daily. 30 tablet 3 4 Active metoprolol succinate XL (Toprol-XL) 25 MG 24 hr tabletIndications:C oronary artery disease involving [place] heart without angina pectoris, unspecified vessel or lesion type Take 1 Tablet by mouth once daily. DO NOT CRUSH OR CHEW TABLET 90 tablet 4 Active atorvastatin (Lipitor) 80 MG tabletIndications:A SCVD (arteriosclerotic cardiovascular disease) Take 1 tablet by mouth 1 time each day. 90 tablet 4 Active Aspirin Low Dose 81 MG chewable tabletIndications:C oronary artery disease involving [place] coronary artery of [place] heart without angina pectoris Chew and Swallow 1 Tablet by mouth once daily. 30 tablet 11 4 Active Active Problems Problem Noted Date Diagnosed Date High risk surgery, pre-operative cardiovascular examination 06/27/2023 ASCVD (arteriosclerotic cardiovascular disease) 06/27/2023 Gallbladder mass 05/09/2023 Dyspnea on exertion 05/09/2023 Pre-op evaluation 05/09/2023 Venous insufficiency of both lower extremities 0 05/09/2023 Tobacco use disorder 05/08/2023 CKD (chronic kidney disease) stage 2, GFR 60-89 ml/min 06/21/2020 Microalbuminuria 04/01/2020 HTN, goal below 130/80 11/07/2014 Resolved Problems Problem Noted Date Diagnosed Date Resolved Date High risk medication use 05/09/2023 Second hand smoke exposure 05/08/2023 0 05/03/2025 Immunizations Immunization Administration Dates Next Due MMR 03/04/2020 TD (adult), 2 Lf tetanus tox oid, preservative free, adsorbed 10/15/1996 Tdap 09/22/2013 Family History Medical History Relation Name Comments Cardiac disorder Father Diabetes Father Cancer Mother Cardiac disorder Mother Diabetes Mother Heart disease Other Hypertension Other Liver disease Other Stroke Other Relation Name Status Comments Father Mother Other Social History Tobacco Use Types Packs/Day Years Used Date Smoking Tobacco: Every Day Cigarettes Smokeless Tobacco: Never Tobacco Cessation:Ready to Q uit: Not Asked; Counseling Given: Not Answered Alcohol Use Standard Drinks/Week Comments Not Currently [...] Orientation Straight 01/24/2022 4: 52 PM EDT Last Filed Vital Signs Vital Sign Reading Time Taken Comments Blood Pressure 112/74 05/01/2024 1:53 PM EDT Pulse 103 05/01/2024 1:53 PM EDT Temperature 36.8 C (98.3 F) 02/07/2024 12:17 AM EDT Respiratory Rate 23 02/07/2024 12:02 AM EDT Oxygen Saturation 94% 05/01/2024 1:53 PM EDT Inhaled Oxygen Concentration - - Weight 161 kg (354 lb 11.5 oz) 05/01/2024 1:53 P M EDT Height 167.6 cm (5' 6 ) 05/01/2024 1:53 PM EDT Body Mass Index 57.25 05/01/2024 1:53 PM EDT Plan of Treatment Health Maintenance Due Date Last Done Comments [facility]-/Child/Adol SDOH Screenings 1964 [facility]- SDOH Screenings 1982 [facility]-Adult SDOH Screenings 1982 [facility]-Pap Smear 1985 [facility]-Cervical Cancer Screening 1994 [facility]-HPV/Cotest 1994 CT Colonography 2009 Colonoscopy 2009 FIT-DNA 2009 FIT 2009 FOBT 2009 Sigmoidoscopy 2009 [facility]-Colorectal Cancer Screening 2009 [facility]-Breast Cancer Screening 2014 [facility]-Pneumococcal Vaccine: 50+ Years (1 of 1 - PCV) 2014 [facility]-Zoster Vaccines (1 of 2) 2014 [facility]-DTaP,Tdap,and Td Vaccines (2 - Td or Tdap) 09/22/2023 09/22/2013, 10/15/1996 [facility]-RSV Vaccine: 60+ Years or (1 - Risk 60-74 years 1-dose series) 2024 [facility]-Depression Screening 06/27/2024 06/27/2023 [id number] Vaccine ( season) 2025 07/31/2021, 12/06/2020, 11/08/2020 [facility]-Influenza Vaccine (#1) 2025 06/15/2023 [facility]-Diabetes: Hemoglobin A1C Discontinued 03/26/2023 [facility]-HIV Screening Completed 02/06/2024 [facility]-Hepatitis C Screening Completed 02/06/2024 [facility]-Obesity Intervention Completed 024, 06/27/2023, 04/30/2023, Additional history exists HPV Vaccines Aged Out No longer eligi ble based on patient's age to complete this topic [facility]-HIB Vaccines Aged Out No longer e ligible based on patient's age to complete this topic [facility]-Hepatitis A Vaccines Aged Out No longer eligible based on patient's age to complete this topic [facility]-IPV Vaccines Aged Out No longer e ligible based on patient's age to complete this topic [facility]-Rotavirus Vaccines Aged Out No lo nger eligible based on patient's age to complete this topic Procedures Procedure Name Priority Date/Time Associated Diagnosis Comments HEPATITIS C ANTIBODY - ED W/REFLEX TO HCV QUANT PCR STAT 02/06/2024 8:19 PM EDT ED HIV 1/2 ANTIBODY/ANTIGEN SCREEN WITH REFLEX TO HIV I/II DIFFERENTIATION STAT 02/06/2024 8:19 PM EDT HEMOGLOBIN A1C Routine 03/26/2023 12:27 PM EDT Disease of gallbladder, unspecified from Last 3 Months or Most Recently Relevant to Health Maintenance Results * ED HIV 1/2 Antibody/Antigen Screen w/Reflex to HIV 1/2 Differentiation (02/06/2024 8:19 PM EDT) [facility] HIV 1 & 2 Antibody/Antigen Screen Non Reactive Non Reactive 02/06/2024 9:31 PM EDT [facility] Comment:Screening for HIV 1 & 2 antibodies, and P24 antigen is NONREACTIVE. No confirmatory testing is required. Blood Venous blood specimen / Unknown Venipuncture / Unknown 02/06/2024 8:19 PM EDT 02/06/2024 8:59 PM EDT José Manuel Dang MD LAB BLOOD ORDERABLES Final Res ult Performing Organization Address City/[facility]/ZIP Co de Phone Number HEALTHCARE [facility] [address] [place] [address] * Hepatitis C Antibody - ED (02/06/2024 8:19 PM EDT) [facility] Hepatitis C Antibody Negative Negative 02/06/2024 9:31 PM EDT [facility] Blood Venous blood specimen / Unknown Venipuncture / Unknown 02/06/2024 8:19 PM EDT 02/06/2024 8:59 PM EDT José Manuel Dang MD LAB BLOOD ORDERABLES Final Res ult [facility] [address] [place] [address] * (ABNORMAL) Hemoglobin A1c (03/26/2023 12:27 PM EDT) [facility] Hemoglobin A1c 6.9(H) <5.7 % 03/26/2023 1:34 PM EDT [facility] Blood Venous blood specimen / Unknown Venipuncture / Unknown 03/26/2023 12:27 PM EDT 03/26/2023 12:40 PM EDT Narrative [facility] - 03/26/2023 1:34 PM EDT HA1C Interpretive Data: Diagnosis of Diabetes: Diabetic > or = 6.5% Pre-diabetic 5.7 to 6.4% Non-diabetic < or = 5.6% Glycemic Targets for Type I and Type II Diabetics: Non- Adults <7.0% Adults <6.0% Children and Adolescents <7.5% Source: [place] [employer]. Standards of medical care in diabetes,2017. Diabetes Care.2017:40 (suppl 1):S1-S135. HbA1c assay performed by an ion-exchange chromatography method that is certified traceable to the DCCT. Marylin Roberts MD LAB BLOOD ORDERABLES Final Result [facility] [address] [place] [address] from Last 3 Months or Most Recently Relevant to Health Maintenance Insurance [employer] Care Teams City Comptroller Relationship Specialty Start Date End Date Alice Narvaez PA [address] [place] [address] PCP - General 12/24/20
--- OUTSIDE RECORDS SUMMARY | 2025-05-25 14:43 | XMS_ITS | Encounter Summary ---
Author Organization Healthcare Address [address] [place] [address] Care Team Providers Care Auto Glass Worker Name Role Phone Alice Narvaez Primary Care Provider [phone] Reason for Visit * Reason Comments Med Refill Encounter Details Date Type Department Care Team ([facility] st Contact Info) Description 09/29/2024 Refill Pav CC Head, Neck & Respiratory [address] [facility] [place] [address] Nika Hernandez, ATHLETE MARKETING AGENT [address] [place] [address] HTN, goal below 130/80; ASCVD (arteriosclerotic cardiovascular disease); Coronary artery disease involving [place] heart without angina pectoris, unspecified vessel or [...] as of this encounter Visit Diagnoses Diagnosis HTN, goal below 130/80 ASCVD (arteriosclerotic cardiovascular disease) Unspecified cardiovascular disease Coronary artery disease involving [place] heart without angina pectoris, unspecified vessel or lesion type documented in this encounter Additional Health Concerns Assessment Noted Time A fall risk assessment has been complete d for the patient 06/27/2023 11:20 AM EST A Body Mass Index follow-up plan has been documented for the patient 05/01/2024 4:31 PM EDT documented as of this encounter Care Teams Auto Glass Worker Relationship Specialty Start Date End Date Alice Narvaez PA [address] [place] [address] PCP - General 12/24/20 documented as of this encounter
--- OUTSIDE RECORDS SUMMARY | 2025-05-25 14:43 | XMS_ITS | Clinical Summary ---
Author Organization [facility] Address [address] [place] [address] Phone Care Team Providers Care Numerical Control Lathe Operator Name Role Phone Unavailable Primary Care Provider Unavailabl e Allergies Active Allergy Reactions Criticality Noted Date Comments Penicillins 05/01/2014 Medications fluticasone (FLONASE) 50 mcg/actuation Nasl [place], SuspensionIndica tions:Acute sinusitis, recurrence not specified, unspecified location 1 [place] by Nasal route daily. 1 Bottle 2 6 Active albuterol (VENTOLIN HFA) 90 mcg/actuation Inhl HFA Aerosol InhalerIndicatio ns:Mild intermittent asthma without complication Inhale 2 Puffs into the lungs every 6 hours as needed. for wheezing 18 g 7 Active tolterodine (DETROL) 2 mg Oral TabletIndication s:Mixed stress and urge urinary incontinence Take 1 Tab by mouth 2 times daily. 60 Tab 2 7 Active Underpads 23 X 36 Misc PadIndications:M ixed stress and urge urinary incontinence USE DIRECTED. Uses max of 5 a day. 150 Each 3 7 Active Incontinence Pad, Liner, Disp Misc PadIndications:U rge incontinence of urine Use as needed for incontinence 200 Each 2 7 Active Blood Pressure Monitor Misc Kit Use to check BP multiple times a day 1 Kit 7 Active Blood Sugar Diagnostic Misc Strip Pt tests TID. Dx:R73.03 1 box 11 7 Active FREESTYLE LITE STRIPS Misc Strip USE TO TEST THREE TIMES DAILY 100 Strip 11 8 Active venlafaxine (EFFEXOR) 100 mg Oral TabletIndication s:Anxiety TAKE 1 TABLET BY MOUTH 3 TIMES DAILY 90 Tab 8 Active folic acid (FOLVITE) 1 mg Oral Tablet TAKE 1 TABLET BY MOUTH DAILY 30 Tab 2 9 Active VITAMIN D3 2,000 unit Oral Capsule TAKE ONE CAPSULE BY MOUTH ONCE DAILY 30 Cap 9 Active lisinopril (PRINIVIL;ZESTRI L) 40 mg Oral Tablet TAKE ONE TABLET BY MOUTH DAILY 30 Tab 9 Active DILT-XR 180 mg Oral Capsule,Degradab le Cnt Release TAKE ONE CAPSULE BY MOUTH DAILY 30 Cap 9 Active simvastatin (ZOCOR) 20 mg Oral TabletIndication s:Hyperlipidemia with target LDL less than 100 TAKE ONE TABLET BY MOUTH EVERY EVENING 30 Tab 9 Active diclofenac (VOLTAREN) 75 mg Oral Tablet, Delayed Release (E.C.) TAKE ONE TABLET BY MOUTH TWICE DAILY (WITH MEALS) 60 Tab 9 Active lansoprazole (PREVACID) 30 mg Oral Capsule, Delayed Release(E.C.)Ind ications:Gastroe sophageal reflux disease, esophagitis presence not specified TAKE 1 CAPSULE BY MOUTH DAILY 30 Cap 9 Active VITAMIN D 50,000 unit Oral Capsule TAKE ONE CAPSULE BY MOUTH TWO TIMES WEEKLY 8 Cap 9 Active albuterol (PROVENTIL HFA;VENTOLIN HFA) 90 mcg/actuation Inhl HFA Aerosol Inhaler INHALE 2 PUFFS INTO THE LUNGS EVERY 6 HOURS NEEDED FOR WHEEZING 18 g 2 9 Active Active Problems Patient Care Coordination No te Formatting of this note migh t be different from the original. RETURNED MAIL, PLEASE UPDATE ADDRESS 12/08/2020 Problem Noted Date Diagnosed Date Prediabetes 05/10/2016 Vitamin D deficiency 09/10/2015 Morbid obesity 12/04/2014 Essential hypertension Major depressive disorder, recurrent episode, mi ld Anxiety Asthma Low back pain Resolved Problems Problem Noted Date Diagnosed Date Resolved Date Weight loss, non-intentional 12/05/2014 03/22/2018 Surgical History Surgery Date Site/Laterality Comments TUBAL LIGATION TONSILLECTOMY TYMPANOSTOMY TUBE PLACEMENT WISDOM TOOTH EXTRACTION ADENOIDECTOMY Medical History Medical History Date Comments Hypertension Depression Anxiety Constipation Low back pain Osteoarthritis Allergy 1972 pencillin Asthma 2013 GERD (gastroesophageal reflux disease) 2013 Clotting disorder 1973 Ulcer 1977 Family History Medical History Relation Name Comments Heart Attack Brother 1 Heart Disease Brother 1 Diabetes Brother 2 Donald Ice Heart Disease Brother 2 Donald Ice Cancer Father Diabetes Father Heart Attack Father Heart Disease Father Diabetes Maternal Grandfather [place]pper High Blood Pressure Maternal Grandfather [place] Stroke Maternal Grandfather [place] Cancer Maternal Grandmother Heart Disease Maternal Grandmother Thyroid Disease Maternal Grandmother Arthritis Mother Asthma Mother Cancer Mother Dementia Mother Depression Mother Diabetes Mother Heart Disease Mother High Blood Pressure Mother Miscarriages / Stillbirths Mother Other Mother Uterine Cancer Mother Heart Disease Paternal Grandfather Jacob Ice Cancer Paternal Grandmother Heart Disease Paternal Grandmother Lung Cancer Paternal Grandmother Relation Name Status Comments Brother 1 Brother 2 Donald Ice Father Maternal Grandfather Long Hopper Maternal Grandmother Mother Paternal Grandfather Jacob Ice Paternal Grandmother Social History Tobacco Use Types Packs/Day Years Used Date Smoking Tobacco: Every Day Cigarettes 0.5 17 Smokeless Tobacco: Never Tobacco Cessation:Ready to Q uit: No; Counseling Given: Yes Alcohol Use Standard Drinks/Week Comments No 0 (1 standard drink = 0.6 oz pur e alcohol) Sexually Active Control Partners Comments Yes Surgical Male Comments No Sex and Gender Information Value Date Recorded Sex Assigned at Not on file Legal Sex Female 1:56 AM EDT Gender Identity Not on file Sexual Orientation Not on file Obstetrics History Para Term AB IAB SAB Ectopic Multiple Livin g Live Births 3 3 3 3 Date Outcome GA Total Labor Labor/2nd/3rd Weight Sex Type Anes PTL Rowan A1 A5 Name Clin Term 7 lb 15 oz (3.6 kg) M Vag-Sp ont Term 7 lb 13.5 oz (3.558 kg) M Vag-Sp ont Term 9 lb 3 oz (4.167 kg) F Vag-Sp ont Last Filed Vital Signs Vital Sign Reading Time Taken Comments Blood Pressure 138/84 03/22/2018 7:18 AM EDT Pulse 92 03/22/2018 7:18 AM EDT Temperature 36.6 C (97.8 F) 03/22/2018 7:18 AM EDT Respiratory Rate 16 03/22/2018 7:18 AM EDT Oxygen Saturation 94% 03/22/2018 7:18 AM EDT Inhaled Oxygen Concentration - - Weight 165.1 kg (364 lb) 03/22/2018 7:18 AM EDT Height 167.6 cm (5' 6 ) 03/22/2018 7:18 AM EDT Body Mass Index 58.75 03/22/2018 7:18 AM EDT Plan of Treatment Health Maintenance Due Date Last Done Comments Annual Wellness Exam 1967 DTaP/TDaP/Td (1 - Tdap) 1983 Cologuard 2009 Colon Cancer Screening 2009 Colonoscopy 2009 FIT 2009 Sigmoidoscopy 2009 Virtual Colonography 2009 Pneumococcal Vaccine 50+ (1 of 1 - PCV) 2014 Zoster (1 of 2) 2014 COVID-19 Vaccine (1 - season) 2025 Influenza Vaccine (#1) 2025 7 (Postponed), 05/10/2016 (Postponed), 09/10/2015 (Declined), Additional history exists Hepatitis C Screening Completed 04/25/2017 Hepatitis B Vaccine Aged Out No longe r eligible based on patient's age to complete this topic Meningococcal B Vaccine Aged Out No l onger eligible based on patient's age to complete this topic Goals Goal Patient Goal Type Associated Problems Recent Progress Patient-Stated? Author Blood Pressure < 140/90 Blood Pressure 138/84(2017 7:18 AM EDT) No Noa Abel BMI (Calculated) < 30 General 58.9(03/22/20 18 7:18 AM EDT) No Dian Tavares LPN Maintain a healthy diet, exercise regularly and maintain an ideal body weight General No Jackie Augustin CCMA Stay Tobacco Free Lifestyle No Jackie Augustin CCMA Procedures Procedure Name Priority Date/Time Associated Diagnosis Comments ACUTE HEPATITIS PANEL Routine 04/25/2017 9:22 AM EDT Well woman exam (no gynecological exam) Need for hepatitis C screening test from Last 3 Months or Most Recently Relevant to Health Maintenance Results * ACUTE HEPATITIS PANEL (04/25/2017 9:22 AM EDT) Hep Bs Ag Negative Negative [facility] Hep B Core IgM [facility] Negative [facility] Hep A IgM Negative Negative [facility] Hep C Ab Negative Negative [facility] Blood specimen (specimen) UPPER LIMB STRUCTURE / Unknown 04/25/2017 9:22 AM EDT 04/25/2017 4:08 PM EDT us Jes Winston MD CHEMISTRY ORDERABLE S Edited Result - Final [facility] [address] [place] [address] from Last 3 Months or Most Recently Relevant to Health Maintenance
--- OUTSIDE RECORDS SUMMARY | 2025-05-25 14:43 | XMS_ITS | Encounter Summary ---
Author Organization Healthcare Address [address] [place] [address] Care Team Providers Care Recreation Leader Name Role Phone Alice Narvaez Primary Care Provider [phone] Reason for Visit * Reason Comments Med Refill Encounter Details Date Type Department Care Team ([facility] st Contact Info) Description 06/17/2024 Refill Pav [facility] Head, Neck & Respiratory [address] [facility], [address] [place] [address] Nika Hernandez, MANAGER ENTRY [address] [place] [phone] ASCVD (arteriosclerotic cardiovascular disease); Coronary artery disease involving jackson heart without angina pectoris, unspecified vessel or [...] encounter Miscellaneous Notes * Telephone Encounter - Sheri Bedolla MA - 06/17/2024 2:39 PM EST Patient will need an appointment with cardio-oncology in order to refill medications documented in this encounter Plan of Treatment Not on file documented as of this encounter Visit Diagnoses Diagnosis ASCVD (arteriosclerotic cardiovascular disease) Unspecified cardiovascular disease Coronary artery disease involving jackson heart without angina pectoris, unspecified vessel or lesion type documented in this encounter Additional Health Concerns Assessment Noted Time A fall risk assessment has been complete d for the patient 06/27/2023 11:20 AM EST A Body Mass Index follow-up plan has been documented for the patient 05/01/2024 4:31 PM EDT documented as of this encounter Care Teams Recreation Leader Relationship Specialty Start Date End Date Alice Narvaez PA [address] [address] PCP - General 12/24/20 documented as of this encounter
--- OUTSIDE RECORDS SUMMARY | 2025-05-25 14:43 | XMS_ITS | Encounter Summary ---
Author Organization Healthcare Address [address] [place] [address] Care Team Providers Care Integrity Specialist Name Role Phone Alice Narvaez Primary Care Provider Reason for Visit * Reason Comments Med Refill Encounter Details Date Type Department Care Team ([facility] st Contact Info) Description 09/16/2024 Refill Pav CC Head, Neck & Respiratory [address] [facility] [place] [address] Nika Hernandez, DIVISION OPERATIONS MANAGER [address] [place] [phone] ASCVD (arteriosclerotic cardiovascular disease) Social History Tobacco Use Types Packs/Day Years [...] Notes * Telephone Encounter - Sheri Bedolla - 09/16/2024 10:27 AM EST Unable to refill meds at this time, patient will need to make an appointment for any refills documented in this encounter Plan of Treatment Not on file documented as of this encounter Visit Diagnoses Diagnosis ASCVD (arteriosclerotic cardiovascular disease) Unspecified cardiovascular disease documented in this encounter Additional Health Concerns Assessment Noted Time A fall risk assessment has been complete d for the patient 06/27/2023 11:20 AM EST A Body Mass Index follow-up plan has been documented for the patient 05/01/2024 4:31 PM EDT documented as of this encounter Care Teams Integrity Specialist Relationship Specialty Start Date End Date Alice Narvaez PA [address] [place] [address] PCP - General 12/24/20 documented as of this encounter
--- NOTE | 2025-05-25 17:10 | PC.NURSE ---
Addendum entered by Shaye Yang RN 05/25/25 18:18: patient did c/o nausea and she stated it was due to her not being able to eat since she was NPO. administered zofran per OCT and a diet was ordered. patient tolerated diet and has not had anymore c/o nausea Original Note: A/Ox4, remains on room air. potassium replaced per protocol. nystatin powder administered per OCT and pillow cases placed in excoriated areas. IV lasix administered per OCT. PW in place. up to the chair twice this shift. VSS. call light within reach. no further requests at this time
--- NOTE | 2025-05-25 17:15 | P.PN_ITS ---
Subjective *Date: 05/25/25 *Time: 23:28 Interval history: Patient states he is feeling better today. On room air. No nausea or vomiting. Afebrile overnight. White count normal. Undergoing gallbladder ultrasound and gynecology eval today. Cardiology evaluated. Denies further abnormal uterine bleeding today. Medical Exam Vital signs and Labs for Last 24 Hours: Vital Signs Temp Pulse Pulse Resp BP Pulse Ox O2 Del Method 05/25/25 17:00 Room Air 05/25/25 16:00 110 H 05/25/25 15:53 98 F 58 L 16 126/76 94 L Room Air 05/25/25 15:00 Room Air 05/25/25 13:00 Room Air 05/25/25 12:00 90 05/25/25 11:00 Room Air 05/25/25 09:00 Room Air 05/25/25 08:00 Room Air 05/25/25 08:00 80 05/25/25 08:00 97.7 F 90 18 138/72 92 L Room Air 05/25/25 06:43 Room Air 05/25/25 05:00 Room Air 05/25/25 04:00 97.6 F 82 16 116/66 94 L Room Air 05/25/25 04:00 75 05/25/25 03:00 Room Air 05/25/25 01:00 Room Air 05/25/25 00:00 70 05/25/25 00:00 98.3 F 98 H 18 130/82 94 L Room Air 05/24/25 23:00 Room Air 05/24/25 21:00 Room Air 05/24/25 20:00 Room Air 05/24/25 20:00 85 05/24/25 20:00 98.0 F 89 18 121/74 92 L Room Air 05/24/25 19:21 92 H 18 05/24/25 19:21 95 Room Air 05/24/25 18:48 Room Air Intake and Output 05/25/25 05/25/25 05/25/25 07:59 15:59 23:59 Intake Total 150 / 510 360 / 510 Balance 150 / 510 360 / 510 Intake: Intake, Oral Amount 150 / 510 360 / 510 Other: Number of Unmeasured Voids 2 Weight 123.547 kg Patient Weight 05/25/25 23:59 Weight 123.547 kg Laboratory Results - last 24 hr 05/25/25 05:20: WBC 5.5, RBC 4.80, Hgb 14.1, Hct 43.0, MCV 89.6, MCH 29.4, MCHC 32.8, RDW 16.7, Plt Count 159, MPV 11.0 H, Neut % (Auto) 57.4, Lymph % (Auto) 31.9, [place] % (Auto) 8.6, Eos % (Auto) 1.1, Baso % (Auto) 0.5, Neut # (Auto) 3.1, Lymph # (Auto) 1.7, [place] # (Auto) 0.5, Eos # (Auto) 0.1, Baso # (Auto) 0.0, Sodium 131 L, Potassium 3.5, Chloride 96 L, Carbon Dioxide 27, Anion Gap 11.5, BUN 14, Creatinine 0.90, Estimated Creat Clear 55, Estimated GFR 64, Est GFR ( Amer) 77, Glucose 67 L D, Calcium 8.5, Magnesium 2.0, Total Bilirubin 0.6, AST 25, ALT 11 L, Alkaline Phosphatase 68, Total Protein 6.7, Albumin 3.0 L , Globulin 3.7 H, Albumin/Globulin Ratio 0.8 L I & O for Labs for Last 24 Hours: Intake & Output 05/22/25 05/23/25 05/24/25 05/25/25 23:59 23:59 23:59 23:59 Intake Total 144.167 / 144.167 570 / 770 610 / 760 510 / 510 Output Total 700 / 700 300 / 300 1000 / 1000 Balance -555.833 / -555.833 270 / 470 -390 / -240 510 / 510 Weight 124.483 kg 122.289 kg 119.777 kg 123.547 kg Microbiology Reports for the Last 24 Hours: Microbiology 05/23/25 04:31 Urine,Clean Catch Urine Culture - Final Multiple organisms, suggests contamination. Constitutional: Present no acute distress, morbidly obese, chronically ill appearing, disheveled and cooperative Head: Present atraumatic and normocephalic ENT: Present normal exam Respiratory: Present normal respiratory effort; Absent rhonchi, wheezes or crackles Cardiac: Present Reg Rate and Rhythm GI: Present soft and distention; Absent tenderness Extremities: Present normal inspection, full ROM and edema (Trace bilateral lower extremity) Skin: Absent erythema Comment:: Stasis changes in legs. See nurse notes for all wound documentation. Has some excoriations in folds of abdomen. Prominent suprapubic hernia Neuro: Present Grossly Intact, alert, awake, oriented x 3 and moves all extremities Assessment and Plan *Assessment and plan (1) Pulmonary edema: Status: Acute Qualifiers: Chronicity: acute Qualified Code(s): J81.0 - Acute pulmonary edema Category: Medical Code(s): J81.1 - Chronic pulmonary edema (2) Atrial fibrillation by electrocardiogram: Status: Acute Category: Medical Code(s): I48.91 - Unspecified atrial fibrillation (3) Heart failure: Status: Acute Qualifiers: Heart failure chronicity: acute on chronic Heart failure type: unspecified Qualified Code(s): I50.9 - Heart failure, unspecified Category: Medical Code(s): I50.9 - Heart failure, unspecified (4) Diabetes: Status: Chronic Qualifiers: Diabetes mellitus type: type 2 Diabetes mellitus medical terminologist insulin use: without medical terminologist use Diabetes mellitus complication status: without complication Qualified Code(s): E11.9 - Type 2 diabetes mellitus without complications Category: Medical Code(s): E11.9 - Type 2 diabetes mellitus without complications (5) Hypertension: Status: Chronic Qualifiers: Hypertension type: primary hypertension Qualified Code(s): I10 - Essential (primary) hypertension Category: Medical Code(s): I10 - Essential (primary) hypertension (6) Morbid obesity with BMI of 40.0-44.9, adult: Status: Chronic Category: Medical Code(s): E66.01 - Morbid (severe) obesity due to excess calories; Z68.41 - Body mass index [BMI] 40.0-44.9, adult Plan Sonya Burroughs is a 60-year-old female with a medical history significant for type 2 diabetes, chronic tobacco smoker, hypertension presents with shortness of breath. She states that began today and progressively got worse which point her family urged her to come to the ED. She states it got better after the epidural injection in the ED. Patient denies chest pain, fever/chills, abdominal pain. On my evaluation of patient, she looks quite disheveled and unkempt unfortunately. She apparently lives at home with her and daughter. Pleasant however. Workup in the ED significant for normal WBC, BNP 1190, CXR showing interstitial opacities, CTA chest With left pleural effusion and left perihilar ground glass opacities. CT abdomen showed markedly distended gallbladder with soft tissue along the superior margin of the gallbladder, worrisome for neoplasm. Patient was initially requiring oxygen, but weaned to room air in the ED. Additionally, she was found to be in A-fib RVR with heart rate in the 110s to 120s. She was given Lopressor 5 mg. Given these findings, ED provider discussed case with me and I decided to admit patient for new onset A-fib RVR, heart failure exacerbation, and probable pneumonia. Showing improvement. On room air. Cardiology and gynecology evaluating today. Anticipate discharge in the next day or 2. #Heart failure exacerbation, new onset, consistent with HFpEF #A-fib, new onset #RVR, resolved ? Presented with shortness of breath, BNP elevated to 1190, CT imaging worrisome for pulmonary edema - Evaluated by cardiology today. Discussed case, recommend continuing Lasix 40 mg IV twice daily. Echo obtained. Rate controlled on Lopressor. Continue metoprolol succinate 50 mg daily. Continue anticoagulation with Lovenox, will consider switching to Xarelto on Eliquis at time of discharge pending further workup for vaginal bleeding ? Echo obtained showing EF 50%, mild RV dilation. Unable to estimate RVSP. Biatrial dilation. ? A1c 5.0; TSH, LDL normal. ? Repeat CBC, CMP, magnesium ordered for the morning. Creatinine 0.9, BUN 14 today. ? Presented with heart rate in the 110s to 130s, in the setting of heart failure exacerbation. Other vital signs stable. Heart rate in 80s today. ? [id number] score 4. #Suspected community-acquired pneumonia #UTI ? CT chest suspicious for perihilar opacities, equivocal for edema versus pneumonia. On room air. ? UA grossly abnormal, urine culture pending. ? Continue ceftriaxone 1 g daily, azithromycin day 4/5. -White count normal at 5.5. Plan to complete 5-day course total of antibiotics. ? Follow-up sputum cultures if patient is able to make sputum, urine culture. #Physical deconditioning: PT/OT consulted, recommended SNF. Case management assisting with placement. #Type 2 diabetes ? A1c 5.0%. Discontinue ACHS checks. Consider weaning off versus continuing linagliptin 5 mg on discharge. #Distended gallbladder ? CT abdomen showed markedly distended gallbladder with soft tissue along the superior margin of the gallbladder, worrisome for neoplasm. LFTs normal. ? Gallbladder ultrasound showing tumefactive sludge. Will consider GI consult in the morning. #Protrusion/prolapse of a perineal sac ? Patient states she is following up with a plastic surgeon. Very prominent abdominal wall hernia. #Hypertension ?Hold home valsartan 160 mg as blood pressure stable. Currently 131/76. #Tobacco smoker ? Nicotine patch as needed. # Morbid obesity ? Complicates all aspects of care. May benefit from GLP-1 agonist on discharge considering comorbidities. Full code DVT prophylaxis: Therapeutic Lovenox
[2025-05-25] MEDS: CEFTRIAXONE 1 GM 1 GM in 0.9 % SODIUM CHLORIDE 50 ML IV (20:11)
[2025-05-26] VITALS: BP 127/65; PULSE 110; PULSE 85; RESP 18; TEMP 36.3; O2SAT 92
--- NOTE | 2025-05-26 03:55 | PC.NURSE ---
Alert and oriented. Up to chair at beginning of shift, pivoted to bed. No complaints from patient. Afib on tele. Room air. Scattered small wounds on lower extremities. Call light in reach.
[2025-05-26 04:00] VITALS: BP 111/72; PULSE 120; PULSE 85; RESP 16; TEMP 36.6; O2SAT 96; BMI 43.0
[2025-05-26 06:27] LABS: Albumin Level 3.4 g/dl (3.5-5.0); Chloride 95 mmol/L (98-107)
[2025-05-26 06:28] LABS: Potassium 4.1 mmoL/L (3.5-5.1); Sodium 132 mmol/L (136-145)
[2025-05-26 06:30] LABS: Alanine Aminotransferase 14 U/L (12-78); Albumin/Globulin Ratio 0.9 (1.1-1.8); Anion Gap 15.1 mEq/L (5-15); Aspartate Amino Transferase 24 U/L (14-36); Bilirubin,Total 0.7 mg/dl (0.2-1.3); Blood Urea Nitrogen 15 mg/dl (7-17); Carbon Dioxide 26 mmol/L (22.0-30.0); Creatinine Clearance Estimated 50 mL/min (50-200); Creatinine,Serum 1.10 mg/dl (0.52-1.04); Estimated Glomerular Filt Rate 50 ml/min (>60); GFR (African American) 61 ML/MIN (>60); Globulin 3.9 g/dL (1.3-3.2); Hematocrit 44.7 % (37.0-47.0); Hemoglobin 14.9 g/dL (12.2-16.2); Immature Granulocytes % 0.5 %; Mean Corpuscular HGB Conc 33.3 g/dL (31.8-35.4); Mean Corpuscular Hemoglobin 29.7 pg (27.0-31.2); Mean Corpuscular Volume 89.2 fl (81-99); Nucleated Red Blood Cells % 0 %; Platelet Count 194 K/mm3 (142-424); Red Blood Count 5.01 M/mm3 (4.20-5.40); Red Cell Distribution Width-SD 54.3 fL; Total Protein,Serum 7.3 g/dl (6.3-8.2); White Blood Count 7.4 K/mm3 (4.8-10.8)
[2025-05-26 06:31] LABS: Alkaline Phosphatase 71 U/L (38-126); Calcium 9.1 mg/dl (8.4-10.2); Glucose 95 mg/dl (74-100); Magnesium 1.9 mg/dl (1.6-2.3)
--- NOTE | 2025-05-26 07:56 | EXP.PHA.PN ---
Subjective *Date: 05/26/25 *Time: 07:56 Medical Exam Vital signs and Labs for Last 24 Hours: Vital Signs Temp Pulse Pulse Resp BP Pulse Ox O2 Del Method 05/26/25 06:47 Room Air 05/26/25 05:00 Room Air 05/26/25 04:00 120 H 05/26/25 04:00 97.8 F 85 16 111/72 96 Room Air 05/26/25 03:00 Room Air 05/26/25 01:00 Room Air 05/26/25 00:00 110 H 05/26/25 00:00 97.4 F L 85 18 127/65 92 L Room Air 05/25/25 23:00 Room Air 05/25/25 21:00 Room Air 05/25/25 20:00 90 05/25/25 20:00 Room Air 05/25/25 20:00 88 18 122/72 94 L Room Air 05/25/25 18:40 Room Air 05/25/25 17:00 Room Air 05/25/25 16:00 110 H 05/25/25 15:53 98 F 58 L 16 126/76 94 L Room Air 05/25/25 15:00 Room Air 05/25/25 13:00 Room Air 05/25/25 12:00 90 05/25/25 11:00 Room Air 05/25/25 09:00 Room Air 05/25/25 08:00 Room Air 05/25/25 08:00 80 05/25/25 08:00 97.7 F 90 18 138/72 92 L Room Air Intake and Output 05/25/25 05/25/25 05/26/25 15:59 23:59 07:59 Intake Total 360 / 1100 590 / 1100 Balance 360 / 1100 590 / 1100 Intake: Intake, Oral Amount 360 / 1050 540 / 1050 Intake, Total IV Amount 50 / 50 Ceftriaxone 1 gm 1 gm In 0.9 % 50 / 50 Sodium Chloride 50 ml @ 100 mls /hr IV Q24H [facility] Rx#:[id number] Other: Number of Unmeasured Voids 2 Weight 121.279 kg Patient Weight 05/26/25 23:59 Weight 121.279 kg Laboratory Results - last 24 hr 05/26/25 05:51: WBC 7.4 D, RBC 5.01, Hgb 14.9, Hct 44.7, MCV 89.2, MCH 29.7, MCHC 33.3, RDW 16.9, Plt Count 194, MPV 11.1 H, Neut % (Auto) 57.1, Lymph % (Auto) 30.1, [place] % (Auto) 10.4 H, Eos % (Auto) 1.1, Baso % (Auto) 0.8, Neut # (Auto) 4.2, Lymph # (Auto) 2.2, [place] # (Auto) 0.8, Eos # (Auto) 0.1, Baso # (Auto) 0.1, Sodium 132 L, Potassium 4.1, Chloride 95 L, Carbon Dioxide 26, Anion Gap 15.1 H, BUN 15, Creatinine 1.10 H D, Estimated Creat Clear 50, Estimated GFR 50 L, Est GFR ( Amer) 61 D, Glucose 95, Calcium 9.1, Magnesium 1.9, Total Bilirubin 0.7, AST 24, ALT 14 D, Alkaline Phosphatase 71, Total Protein 7.3, Albumin 3.4 L D, Globulin 3.9 H, Albumin/Globulin Ratio 0.9 L I & O for Labs for Last 24 Hours: Intake & Output 05/23/25 05/24/25 05/25/25 05/26/25 23:59 23:59 23:59 23:59 Intake Total 570 / 770 610 / 760 1100 / 1100 Output Total 300 / 300 1000 / 1000 Balance 270 / 470 -390 / -240 1100 / 1100 Weight 122.289 kg 119.777 kg 123.547 kg 121.279 kg Microbiology Reports for the Last 24 Hours: Microbiology 05/23/25 04:31 Urine,Clean Catch Urine Culture - Final Multiple organisms, suggests contamination. The patient's infection will respond to the chosen ABx?: Yes (SPUTUM CX ORDERED/UNCOLLECTED, AFEBRILE OVER 24 HR) Is the patient receiving the right drug, dose, and route?: Yes Could a more targeted ABx be ordered?: No How long ABx needed (days)?: 5
[2025-05-26 08:00] VITALS: BP 145/99; PULSE 100; PULSE 95; RESP 20; TEMP 36.6; O2SAT 93
[2025-05-26] MEDS: VENLAFAXINE XR 75MG CAPSULE 150 MG PO (08:16)
[2025-05-26] MEDS: FAMOTIDINE 20MG TABLET 20 MG PO (08:16)
[2025-05-26] MEDS: METOPROLOL SUCCINATE XL 50MG TABLET 50 MG PO (08:16)
[2025-05-26] MEDS: AZITHROMYCIN 250MG TABLET 250 MG PO (08:16)
[2025-05-26] MEDS: BUSPIRONE HCL 5 MG TABLET PO (08:16)
[2025-05-26] MEDS: ENOXAPARIN 150MG/ML SYRINGE 125 MG SUBCUT (08:17)
[2025-05-26] MEDS: ASPIRIN 81MG CHEWABLE TABLET 81 MG PO (08:17)
[2025-05-26] MEDS: NYSTATIN TOPICAL POWDER 30GM TP (08:18)
[2025-05-26] MEDS: FUROSEMIDE 40MG/4ML VIAL 40 MG IV (08:18)
--- NOTE | 2025-05-26 08:37 | EXP.DC.SUM ---
General Admission date:: 05/22/25 HPI HPI HPI: Sonya Burroughs is a 60-year-old female with a medical history significant for type 2 diabetes, chronic tobacco smoker, hypertension presents with shortness of breath. She states that began today and progressively got worse which point her family urged her to come to the ED. She states it got better after the epidural injection in the ED. Patient denies chest pain, fever/chills, abdominal pain. On my evaluation of patient, she looks quite disheveled and unkempt unfortunately. She apparently lives at home with her and daughter. Pleasant however. Workup in the ED significant for normal WBC, BNP 1190, CXR showing interstitial opacities, CTA chest With left pleural effusion and left perihilar ground glass opacities. CT abdomen showed markedly distended gallbladder with soft tissue along the superior margin of the gallbladder, worrisome for neoplasm. Patient was initially requiring oxygen, but weaned to room air in the ED. Additionally, she was found to be in A-fib RVR with heart rate in the 110s to 120s. She was given Lopressor 5 mg. Given these findings, ED provider discussed case with me and I decided to admit patient for new onset A-fib RVR, heart failure exacerbation, and probable pneumonia. Hospital Course Hospital Course Hospital Course: patient will need to be discharged on the following cardiac medications: Aspirin 81 mg daily Eliquis 5 mg p.o. twice daily Lasix 40 mg p.o. twice daily Toprol-XL 75 mg daily Hold off on Jardiance/Farxiga due to her gynecological issues Try to restart valsartan on an outpatient basis if her blood pressure improves Exam Data for Last 24 hours Vital signs and Labs for Last 24 Hours: Temp Pulse Resp BP Pulse Ox O2 Del Method O2 Flow Rate 97.8 F 85 16 111/72 96 Room Air 2 05/26/25 04:00 05/26/25 04:00 05/26/25 04:00 05/26/25 04:00 05/26/25 04:00 05/26/25 08:05 05/23/25 11:00 Laboratory Results - last 24 hr 05/26/25 05:51: WBC 7.4 D, RBC 5.01, Hgb 14.9, Hct 44.7, MCV 89.2, MCH 29.7, MCHC 33.3, RDW 16.9, Plt Count 194, MPV 11.1 H, Neut % (Auto) 57.1, Lymph % (Auto) 30.1, [facility] % (Auto) 10.4 H, Eos % (Auto) 1.1, Baso % (Auto) 0.8, Neut # (Auto) 4.2, Lymph # (Auto) 2.2, [facility] # (Auto) 0.8, Eos # (Auto) 0.1, Baso # (Auto) 0.1, Sodium 132 L, Potassium 4.1, Chloride 95 L, Carbon Dioxide 26, Anion Gap 15.1 H, BUN 15, Creatinine 1.10 H D, Estimated Creat Clear 50, Estimated GFR 50 L, Est GFR ( Amer) 61 D, Glucose 95, Calcium 9.1, Magnesium 1.9, Total Bilirubin 0.7, AST 24, ALT 14 D, Alkaline Phosphatase 71, Total Protein 7.3, Albumin 3.4 L D, Globulin 3.9 H, Albumin/Globulin Ratio 0.9 L I & O for Last 24 hours: Intake & Output 05/23/25 05/24/25 05/25/25 05/26/25 23:59 23:59 23:59 23:59 Intake Total 570 / 770 610 / 760 1100 / 1100 Output Total 300 / 300 1000 / 1000 Balance 270 / 470 -390 / -240 1100 / 1100 Weight 122.289 kg 119.777 kg 123.547 kg 121.279 kg Microbiology Reports for the Last 24 Hours: Microbiology 05/23/25 04:31 Urine,Clean Catch Urine Culture - Final Multiple organisms, suggests contamination. Results Data Completed and Pending Labs on day of discharge: Labs from last 24 hours 05/26/25 05:51 WBC 7.4 D RBC 5.01 Hgb 14.9 Hct 44.7 MCV 89.2 MCH 29.7 MCHC 33.3 RDW 16.9 Plt Count 194 MPV 11.1 H Neut % (Auto) 57.1 Lymph % (Auto) 30.1 [facility] % (Auto) 10.4 H Eos % (Auto) 1.1 Baso % (Auto) 0.8 Neut # (Auto) 4.2 Lymph # (Auto) 2.2 [facility] # (Auto) 0.8 Eos # (Auto) 0.1 Baso # (Auto) 0.1 Sodium 132 L Potassium 4.1 Chloride 95 L Carbon Dioxide 26 Anion Gap 15.1 H BUN 15 Creatinine 1.10 H D Estimated Creat Clear 50 Estimated GFR 50 L Est GFR ( Amer) 61 D Glucose 95 Calcium 9.1 Magnesium 1.9 Total Bilirubin 0.7 AST 24 ALT 14 D Alkaline Phosphatase 71 Total Protein 7.3 Albumin 3.4 L D Globulin 3.9 H Albumin/Globulin Ratio 0.9 L DS: Diagnosis Discharge Diagnosis (1) Pulmonary edema: Status: Acute Code(s): J81.1 - Chronic pulmonary edema Qualifiers: Chronicity: acute Qualified Code(s): J81.0 - Acute pulmonary edema (2) Atrial fibrillation by electrocardiogram: Status: Acute Code(s): I48.91 - Unspecified atrial fibrillation (3) Heart failure: Status: Acute Code(s): I50.9 - Heart failure, unspecified Qualifiers: Heart failure chronicity: acute on chronic Heart failure type: unspecified Qualified Code(s): I50.9 - Heart failure, unspecified (4) Diabetes: Status: Chronic Code(s): E11.9 - Type 2 diabetes mellitus without complications Qualifiers: Diabetes mellitus complication status: without complication Diabetes mellitus halfway insulin use: without manager intermediate use Diabetes mellitus type: type 2 Qualified Code(s): E11.9 - Type 2 diabetes mellitus without complications (5) Hypertension: Status: Chronic Code(s): I10 - Essential (primary) hypertension Qualifiers: Hypertension type: primary hypertension Qualified Code(s): I10 - Essential (primary) hypertension (6) Morbid obesity with BMI of 40.0-44.9, adult: Status: Chronic Code(s): E66.01 - Morbid (severe) obesity due to excess calories; Z68.41 - Body mass index [BMI] 40.0-44.9, adult Meds Home Medications and Allergies Home Medications ?Medication ?Instructions ?Recorded ?Confirmed ?Type famotidine 20 mg tablet 20 mg PO DAILY #90 tabs 02/25/24 05/23/25 Rx valsartan 160 mg tablet 160 mg PO DAILY #30 tabs 11/27/24 05/23/25 Rx albuterol sulfate 90 mcg/actuation 2 puff inhalation Q6HP PRN 05/23/25 05/23/25 History aerosol inhaler Shortness Of Breath Or Wheezing aspirin 81 mg chewable tablet 81 mg PO DAILY 05/23/25 05/23/25 History buspirone 5 mg tablet 5 mg PO TID 05/23/25 05/23/25 History cetirizine 10 mg tablet 10 mg PO DAILY 05/23/25 05/23/25 History cholecalciferol (vitamin D3) 50 50 mcg PO DAILY 05/23/25 05/23/25 History mcg (2,000 unit) capsule (Vitamin D3) ergocalciferol (vitamin D2) 1,250 1,250 mcg PO .TWICE WEEKLY 05/23/25 05/23/25 History mcg (50,000 unit) capsule linagliptin 5 mg tablet (Tradjenta) 5 mg PO DAILY 05/23/25 05/23/25 History oxybutynin chloride 5 mg tablet 5 mg PO TID 05/23/25 05/23/25 History venlafaxine 150 mg 150 mg PO DAILY 05/23/25 05/23/25 History capsule,extended release 24 hr apixaban 5 mg tablet (Eliquis) 5 mg PO BID #60 tabs 05/26/25 Rx furosemide 40 mg tablet 40 mg PO BIDL 30 days #60 tabs 05/26/25 Rx metoprolol succinate 50 mg 75 mg (1.5 x 50 mg) PO DAILY 30 05/26/25 Rx tablet,extended release 24 hr days #45 tabs (Toprol XL) New Prescriptions to Start Prescriptions: apixaban [Eliquis] Anton Brantley furosemide Anton Brantley metoprolol succinate [Toprol XL] Anton Brantley Allergies Allergy/AdvReac Type Severity Reaction Status Date / Time Penicillins Allergy Unknown Hives Verified 02/06/24 15:09 Discharge Plan Disposition Patient Disposition: Home, Self-Care Condition: Fair Discharge Order Discharge Orders: Discharge Order (Routine); Ordered 05/26/25 Ordered By: Anotn Brantley Follow up Plan Follow up with: Rashmi Carmona DO [Staff Physician, [employer]] - 06/09/25 9:45 am Chidi Estes II, MD [Staff Physician, Gastroenterology] - Enter time for follow up Referral Note: gallbladder sludge/tumefactive sludge Abraham Prescott MD [Primary Care Provider, Family Practice] - 06/03/25 9:40 am Teller,Jack, PT [Physical Therapist, Physical Therapy] - 06/08/25 11:00 am Prescriptions/Medication Reconciliation: New Eliquis 5 mg tablet 5 mg PO BID Qty: 60 0RF furosemide 40 mg Tablet 40 mg PO BIDL 30 Days Qty: 60 0RF metoprolol succinate [Toprol XL] 50 mg Tablet Extended Release 24 Hr 75 mg PO DAILY 30 Days Qty: 45 0RF Continued famotidine 20 mg tablet 20 mg PO DAILY Qty: 90 3RF valsartan 160 mg tablet 160 mg PO DAILY Qty: 30 2RF Patient Comments: TAKE 1 TABLET BY MOUTH ONCE DAILY. aspirin 81 mg tablet,chewable 81 mg PO DAILY Patient Comments: CHEW AND SWALLOW 1 TABLET BY MOUTH ONCE DAILY. buspirone 5 mg tablet 5 mg PO TID cetirizine 10 mg tablet 10 mg PO DAILY venlafaxine 150 mg capsule,extended release 24hr 150 mg PO DAILY ergocalciferol (vitamin D2) 1,250 mcg (50,000 unit) capsule 1,250 mcg PO .TWICE WEEKLY albuterol sulfate 90 mcg/actuation HFA aerosol inhaler 2 puff inhalation Q6HP PRN (Reason: Shortness Of Breath Or Wheezing) oxybutynin chloride 5 mg tablet 5 mg PO TID cholecalciferol (vitamin D3) [Vitamin D3] 50 mcg (2,000 unit) capsule 50 mcg PO DAILY Tradjenta 5 mg tablet 5 mg PO DAILY Other Ambulatory Orders: Rehab Eval, OP (Routine) Timeframe: 3 Days Facility: [facility] - Location: Physical Therapy Ordered By: Anton Brantley Problem Reconciliation Problems Reviewed?: Yes Patient Discharge Instructions ACTIVITY: Continue current activity DIET: continue same diet Patient Instructions: DI for Heart Failure, DI for Atrial Fibrillation, Stop Light Pneumonia, Stop Light Heart Failure, Stop Light Infection Print Language: [place] Islander Providers Primary Care Provider: Abraham Prescott Admit Provider: Serafin Gallagher Attending Provider: Serafin Gallagher
[2025-05-26] MEDS: ACETAMINOPHEN 325MG TAB 650 MG PO (08:59)
--- NOTE | 2025-05-26 10:32 | EXP.CARD.PN ---
Subjective Subjective Date: 05/26/25 Time: 09:00 Principal diagnosis: atrial fibrillation and acute HFpEF Interval history: This is a 59-year-old presented to the emergency department with complaints of shortness of breath. She is being treated for acute HFpEF. She was also in atrial fibrillation with RVR. She has no rate controlled but heart rate is higher than we would like for her to be. She denies any chest pain or pressure. She states that her shortness of breath has significantly improved. She denies any lower extremity edema. She denies any fever, chills or vomiting or diarrhea. Exam Data for Last 24 hours Vital signs and Labs for Last 24 Hours: Temp Pulse Resp BP Pulse Ox O2 Del Method O2 Flow Rate 97.8 F 100 H 16 111/72 96 Room Air 2 05/26/25 04:00 05/26/25 08:00 05/26/25 04:00 05/26/25 04:00 05/26/25 04:00 05/26/25 09:00 05/23/25 11:00 Laboratory Results - last 24 hr 05/26/25 05:51: WBC 7.4 D, RBC 5.01, Hgb 14.9, Hct 44.7, MCV 89.2, MCH 29.7, MCHC 33.3, RDW 16.9, Plt Count 194, MPV 11.1 H, Neut % (Auto) 57.1, Lymph % (Auto) 30.1, Real % (Auto) 10.4 H, Eos % (Auto) 1.1, Baso % (Auto) 0.8, Neut # (Auto) 4.2, Lymph # (Auto) 2.2, Real # (Auto) 0.8, Eos # (Auto) 0.1, Baso # (Auto) 0.1, Sodium 132 L, Potassium 4.1, Chloride 95 L, Carbon Dioxide 26, Anion Gap 15.1 H, BUN 15, Creatinine 1.10 H D, Estimated Creat Clear 50, Estimated GFR 50 L, Est GFR ( Amer) 61 D, Glucose 95, Calcium 9.1, Magnesium 1.9, Total Bilirubin 0.7, AST 24, ALT 14 D, Alkaline Phosphatase 71, Total Protein 7.3, Albumin 3.4 L D, Globulin 3.9 H, Albumin/Globulin Ratio 0.9 L I & O for Last 24 hours: Intake & Output 05/23/25 05/24/25 05/25/25 05/26/25 23:59 23:59 23:59 23:59 Intake Total 570 / 770 610 / 760 1100 / 1100 Output Total 300 / 300 1000 / 1000 Balance 270 / 470 -390 / -240 1100 / 1100 Weight 269 lb 9.6 oz 264 lb 1 oz 272 lb 6 oz 267 lb 6 oz Microbiology Reports for the Last 24 Hours: Microbiology 05/23/25 04:31 Urine,Clean Catch Urine Culture - Final Multiple organisms, suggests contamination. Constitutional Constitutional: no acute distress and morbidly obese *Routine HEENT Exam Head: Present normocephalic and atraumatic ENT: Present mucous membranes moist *Routine Neck Exam Neck: Present supple, full ROM and normal carotid upstroke; Absent JVD, carotid bruit or lymphadenopathy *Routine Respiratory Exam Respiratory: Present CTA bilaterally, normal respiratory effort, able to speak in complete sentences and symmetric chest movement *Routine Cardiovascular Exam Cardiovascular: Present Normal S1, Normal S2, tachycardia and irregularly irregular; Absent murmur or gallop *Routine Abdominal Exam Abdominal: Present soft and normoactive bowel sounds; Absent tenderness, distended or organomegaly *Routine Extremities Exam Extremities: Present full ROM, pulses intact and normal capillary refill; Absent cyanosis, clubbing or edema *Routine Skin Exam Skin: Present intact and warm; Absent erythema *Routine Neurological Exam Neurological: Present alert, oriented X3 and CN II-XII intact; Absent sensory deficit or motor deficit Routine Psychiatric Exam Psychiatric: Present normal affect Progress Note: A&P Assessment and plan (1) Acute heart failure with preserved ejection fraction (HFpEF): Status: Acute (2) Pulmonary edema: Status: Acute (3) Atrial fibrillation by electrocardiogram: Status: Acute (4) Diabetes: Status: Chronic (5) Hypertension: Status: Chronic (6) Morbid obesity with BMI of 40.0-44.9, adult: Status: Chronic (7) Gallbladder mass: Status: Acute (8) Pelvic hernia: Status: Acute Assessment and Plan Assessment and Plan for All Diagnoses:: Plan: 1. The patient was admitted to the hospital and is currently being treated for pulmonary edema and acute HFpEF. Her BNP was elevated on admission. She also had a left pleural effusion. The patient has been diuresed with IV Lasix. She does have a negative fluid balance. Will switch her over to Lasix 40 mg p.o. twice daily for continued diuresis due to HFpEF. 2. Will hold off on Jardiance or Farxiga at this time due to her gynecological issues and large pelvic hernia. 3. EF is low normal at 50% and preserved. 4. The patient was in atrial fibrillation with RVR on admission. She was treated with IV Lopressor and she did rate control. She has been started on Toprol 50 mg p.o. daily. Her heart rate is a little higher today than we would like. Will increase her Toprol to 75 mg daily. 5. The patient will need long-term anticoagulation. She is currently on Lovenox. Prior to discharge home she will need to be switched over to Eliquis 5 mg p.o. twice daily. 6. The patient does have a gallbladder mass. Will defer to the hospitalist. She may need a GI/surgery consult. 7. The patient also has a mass to her vulvar or peritoneal area that is a pelvic wall hernia. DIRECTOR ORGANIZATIONAL has been consulted. Will defer. 8. Her blood pressure is well-controlled. Continue Toprol. 9. The patient is diabetic. She will need aggressive control of her diabetes. Will defer this to the hospitalist. 10. Her LDL goal is less than 100. Her LDL is 47. 11. No further recommendations at this time from a cardiac standpoint. She can be discharged home today from a cardiac standpoint with follow-up in cardiology clinic in 1 to 2 weeks on an outpatient basis. The patient will need to be discharged on the following cardiac medications: Aspirin 81 mg daily Eliquis 5 mg p.o. twice daily Lasix 40 mg p.o. twice daily Toprol-XL 75 mg daily Hold off on Jardiance/Farxiga due to her gynecological issues Try to restart valsartan on an outpatient basis if her blood pressure improves Thank you for the opportunity to help participate in the care of this patient. All recommendations and orders are per Dr. Ramsey.
[2025-05-26] MEDS: METOPROLOL SUCCINATE XL 50MG TABLET 75 MG PO (11:00)
[2025-05-26 12:00] VITALS: BP 114/75; PULSE 105; PULSE 90; RESP 18; TEMP 36.6; O2SAT 98
[2025-05-26] MEDS: CEFTRIAXONE 1 GM 1 GM in 0.9 % SODIUM CHLORIDE 50 ML IV (12:17)
--- NOTE | 2025-05-26 12:40 | EXP.GYNCONS ---
History of Present Illness *Admission Date: 05/22/25 *Reason for visit:: PMB *History of present illness: I was consulted on this patient and saw her yesterday, 05/25/25, for postmenopausal bleeding. She stated she had never noticed the bleeding and was only alerted to it by the nursing staff. She has had 3 vaginal deliveries that were uncomplicated. She has been menopausal for 8+ years per the patient. She denies any HF, NS or symptoms of menopause. She denies a follow up in the clinic to evaluation. US was completed while pt was inpatient, see below for results. med list reivewed and pt is not on an anticoagulation at home. She wasnt able to remember if she was taking anything that would make her bleed or exactly what medications she was taking. Chart review shows she is on therapeutic anticoagulation wit hlovenox whhile inpatient. see A&P for plan Sonya Burroughs is a 60-year-old female with a medical history significant for type 2 diabetes, chronic tobacco smoker, hypertension presents with shortness of breath. She states that began today and progressively got worse which point her family urged her to come to the ED. She states it got better after the epidural injection in the ED. Patient denies chest pain, fever/chills, abdominal pain. On my evaluation of patient, she looks quite disheveled and unkempt unfortunately. She apparently lives at home with her and daughter. Pleasant however. Workup in the ED significant for normal WBC, BNP 1190, CXR showing interstitial opacities, CTA chest With left pleural effusion and left perihilar ground glass opacities. CT abdomen showed markedly distended gallbladder with soft tissue along the superior margin of the gallbladder, worrisome for neoplasm. Patient was initially requiring oxygen, but weaned to room air in the ED. Additionally, she was found to be in A-fib RVR with heart rate in the 110s to 120s. She was given Lopressor 5 mg. Given these findings, ED provider discussed case with me and I decided to admit patient for new onset A-fib RVR, heart failure exacerbation, and probable pneumonia. [facility] Disclaimer: The information contained in this section may have been updated after the patient was seen, as this information can be updated by other users. Medical History (Updated 05/26/25 @ 12:49 by Rashmi Carmona DO) Atrial fibrillation by electrocardiogram Pulmonary edema Morbid obesity with BMI of 40.0-44.9, adult Gallbladder mass Pelvic hernia Acute heart failure with preserved ejection fraction (HFpEF) Allergic rhinitis Osteoarthritis Hypertension Diabetes Surgical History History of colonoscopy Family History (Updated 05/22/25 @ 20:56 by Sruthi Gonzalez RN) Other No significant family history Social History (Updated 05/22/25 @ 20:55 by Sruthi Gonzalez RN) Smoking Status: Current every day smoker tobacco type: cigarettes packs per day: 1 second hand exposure: Yes alcohol intake: never substance use type: marijuana current occupational status: unemployed Travel in the last 8 weeks?: None household members: spouse housing: house current occupational exposures/hazards: No caffeine: Yes Review of Systems Constitutional Constitutional: Reports daytime sleepiness and Reports lethargy *Genitourinary Genitourinary: Reports other (PMB) *Neurologic Neurologic: Reports system reviewed and no additional complaints, except as documented Meds Home Medications and Allergies Home Medications ?Medication ?Instructions ?Recorded ?Confirmed ?Type famotidine 20 mg tablet 20 mg PO DAILY #90 tabs 02/25/24 05/23/25 Rx valsartan 160 mg tablet 160 mg PO DAILY #30 tabs 11/27/24 05/23/25 Rx albuterol sulfate 90 mcg/actuation 2 puff inhalation Q6HP PRN 05/23/25 05/23/25 History aerosol inhaler Shortness Of Breath Or Wheezing aspirin 81 mg chewable tablet 81 mg PO DAILY 05/23/25 05/23/25 History buspirone 5 mg tablet 5 mg PO TID 05/23/25 05/23/25 History cetirizine 10 mg tablet 10 mg PO DAILY 05/23/25 05/23/25 History cholecalciferol (vitamin D3) 50 50 mcg PO DAILY 05/23/25 05/23/25 History mcg (2,000 unit) capsule (Vitamin D3) ergocalciferol (vitamin D2) 1,250 1,250 mcg PO .TWICE WEEKLY 05/23/25 05/23/25 History mcg (50,000 unit) capsule linagliptin 5 mg tablet (Tradjenta) 5 mg PO DAILY 05/23/25 05/23/25 History oxybutynin chloride 5 mg tablet 5 mg PO TID 05/23/25 05/23/25 History venlafaxine 150 mg 150 mg PO DAILY 05/23/25 05/23/25 History capsule,extended release 24 hr New Prescriptions to Start Prescriptions: Allergies Allergy/AdvReac Type Severity Reaction Status Date / Time Penicillins Allergy Unknown Hives Verified 02/06/24 15:09 Exam (Inpt) Vital signs and Labs for Last 24 Hours: Temp Pulse Resp BP Pulse Ox O2 Del Method O2 Flow Rate 98 F 105 H 18 114/75 98 Room Air 2 05/26/25 12:00 05/26/25 12:00 05/26/25 12:00 05/26/25 12:00 05/26/25 12:00 05/26/25 12:00 05/23/25 11:00 Laboratory Results - last 24 hr 05/26/25 05:51: WBC 7.4 D, RBC 5.01, Hgb 14.9, Hct 44.7, MCV 89.2, MCH 29.7, MCHC 33.3, RDW 16.9, Plt Count 194, MPV 11.1 H, Neut % (Auto) 57.1, Lymph % (Auto) 30.1, Andrew % (Auto) 10.4 H, Eos % (Auto) 1.1, Baso % (Auto) 0.8, Neut # (Auto) 4.2, Lymph # (Auto) 2.2, Andrew # (Auto) 0.8, Eos # (Auto) 0.1, Baso # (Auto) 0.1, Sodium 132 L, Potassium 4.1, Chloride 95 L, Carbon Dioxide 26, Anion Gap 15.1 H, BUN 15, Creatinine 1.10 H D, Estimated Creat Clear 50, Estimated GFR 50 L, Est GFR ( Amer) 61 D, Glucose 95, Calcium 9.1, Magnesium 1.9, Total Bilirubin 0.7, AST 24, ALT 14 D, Alkaline Phosphatase 71, Total Protein 7.3, Albumin 3.4 L D, Globulin 3.9 H, Albumin/Globulin Ratio 0.9 L I & O for Labs for Last 24 Hours: Intake & Output 05/23/25 05/24/25 05/25/25 05/26/25 23:59 23:59 23:59 23:59 Intake Total 570 / 770 610 / 760 1100 / 1100 420 / 420 Output Total 300 / 300 1000 / 1000 350 / 350 Balance 270 / 470 -390 / -240 1100 / 1100 70 / 70 Weight 269 lb 9.6 oz 264 lb 1 oz 272 lb 6 oz 267 lb 6 oz HEENT Head: Present normocephalic Respiratory: Present normal respiratory effort, able to speak in complete sentences and symmetric chest movement Cardiac: Present Tachycardia GI: Present soft and normal bowel sounds; Absent tenderness, guarding, rebound or rigidity Assessment and Plan *Assessment and plan (1) Heart failure: Status: Acute Qualifiers: Heart failure type: unspecified Heart failure chronicity: acute on chronic Qualified Code(s): I50.9 - Heart failure, unspecified Category: Medical Code(s): I50.9 - Heart failure, unspecified (2) Diabetes: Status: Chronic Qualifiers: Diabetes mellitus type: type 2 Diabetes mellitus terminal superintendent insulin use: without terminal superintendent use Diabetes mellitus complication status: without complication Qualified Code(s): E11.9 - Type 2 diabetes mellitus without complications Category: Medical Code(s): E11.9 - Type 2 diabetes mellitus without complications (3) Hypertension: Status: Chronic Qualifiers: Hypertension type: primary hypertension Qualified Code(s): I10 - Essential (primary) hypertension Category: Medical Code(s): I10 - Essential (primary) hypertension (4) Morbid obesity with BMI of 40.0-44.9, adult: Status: Chronic Category: Medical Code(s): E66.01 - Morbid (severe) obesity due to excess calories; Z68.41 - Body mass index [BMI] 40.0-44.9, adult (5) Postmenopausal bleeding: Status: Acute Category: Medical Code(s): N95.0 - Postmenopausal bleeding Plan reviewed TVUS which shows and thickened EMS. Will need outpatient eval and endometrial sampling. Discussed with pt and she voiced understanding. She will have an outpt appt made. Confirmed with the office this morning and appt made for this month. Pt denies any cramping or heavy uterine bleeding. Pt will need to have therapeutic lovenox held for at least 24 hours prior to EMB if discharged home on anticoagulation we will call and check on the patient following discharge and watch for what medications she is discharged on to allow endometrial sampling in the office at her follow up appt
--- NOTE | 2025-05-26 14:59 | HMH.PHAAMS2 ---
- Antimicrobial Stewardship Review 48 hour timeout review Stewardship interventions: 48 hour timeout review, reviewed - no change Comments: empiric therapy for probable pneumonia, no sputum cultures available
--- NOTE | 2025-05-28 10:55 | SW/DCPLANNER ---
Phoned patient x2. Patient's mailbox is full and is not accepting messages at this time. Yosef Peña
== END 2025-05-26 16:46 | disposition home or self-care (01) | DRG 291 ==
LOC: ER 17:14 → ICU 05-23 00:32 → 2ND 05-23 22:02 → ICU 05-25 14:35
PROVIDERS: Physician Assistant; Admitting Provider Student in an Organized Health Care Education/Training Program; Emergency Provider Student in an Organized Health Care Education/Training Program; PCP Family Medicine; Visit Provider Student in an Organized Health Care Education/Training Program
DX: I11.0 Hypertensive heart disease with heart failure (principal); I50.33 Acute on chronic diastolic (congestive) heart failure; J18.9 Pneumonia, unspecified organism; Z68.41 Body mass index [BMI] 40.0-44.9, adult; N39.0 Urinary tract infection, site not specified; I48.91 Unspecified atrial fibrillation; E11.9 Type 2 diabetes mellitus without complications; E66.01 Morbid (severe) obesity due to excess calories; F17.210 Nicotine dependence, cigarettes, uncomplicated; N95.0 Postmenopausal bleeding; K46.9 Unspecified abdominal hernia without obstruction or gangrene; N32.89 Other specified disorders of bladder; N81.89 Other female genital prolapse; K82.8 Other specified diseases of gallbladder; R53.81 Other malaise; Z88.0 Allergy status to penicillin; Z79.84 Long term (current) use of oral hypoglycemic drugs; Z79.899 Other long term (current) drug therapy
CPT/HCPCS: 0223U; 36415; 71045; 71275; 72125; 74177; 76705; 76856; 80053; 80061; 81001; 82803; 82962; 83036; 83605; 83735; 83880; 84443; 84484; 85025; 85610; 86803; 87086; 87389; 89220; 93005; 93306; 97163; 97165; 97530; 99285; J0696; J1650; J1938; J2405; J3475; Q9957; Q9967

== ENCOUNTER 2025-07-26 22:52 | Emergency (ER) | payer MEDICAID, SELFPAY ==
[2025-07-26 22:50] VITALS: BP 118/90; PULSE 102; RESP 16; TEMP 36.9; O2SAT 98; BMI 43.5
--- NOTE | 2025-07-26 22:51 | ECG_ITS ---
APPROVED REPORT Exam: Resting ECG HR:98 bpm ECG Measurements Heart Rate 98 AXES SD 134 P 254 QRSd 90 QRS 69 QT 355 T 59 QTc 410 Conclusion JUNCTIONAL RHYTHM ABNORMAL RHYTHM ECG UNCONFIRMED REPORT Electronically signed by : RYANNE AGUDELO, 07/27/2025 00:16:47
--- OUTSIDE RECORDS SUMMARY | 2025-07-26 22:58 | XMS_ITS | Encounter Summary ---
Author Organization Healthcare Address [address] [place] [address] Care Team Providers Care Electronics Engineering Technician Name Role Phone Alice Narvaez Primary Care Provider Encounter Details Date Type Department Care Team (Late st Contact Info) Description 02/08/2023 Orders Only External Location [address] [place] [address] Cliff Hargrove MD [address] [address] Social History Tobacco Use Types [...] on filedocumented in this encounter Care Teams Electronics Engineering Technician Relationship Specialty Start Date End Date Alice Narvaez PA [address] [place] [address] PCP - General 12/24/20 documented as of this encounter
--- OUTSIDE RECORDS SUMMARY | 2025-07-26 22:58 | XMS_ITS | Clinical Summary ---
Author Organization [facility] Address [address] [place] [address] Phone Care Team Providers Care Shale Processing Technician Name Role Phone Unavailable Primary Care Provider Unavailabl e Allergies Active Allergy Reactions Criticality Noted Date Comments Penicillins 05/01/2014 Medications fluticasone (FLONASE) 50 mcg/actuation Nasl Batt[place], SuspensionIndica tions:Acute sinusitis, recurrence not specified, unspecified location 1 Battiest by Nasal route daily. 1 Bottle 2 [...] [facility] LAB[facility] Hep C Ab Negative Negative [facility] Blood specimen (specimen) UPPER LIMB STRUCTURE / Unknown 04/25/2017 9:22 AM EDT 04/25/2017 4:08 PM EDT us Jes Winston MD CHEMISTRY ORDERABLE S Edited Result - Final [facility] [address] [place] [id number] from Last 3 Months or Most Recently Relevant to Health Maintenance
--- OUTSIDE RECORDS SUMMARY | 2025-07-26 22:58 | XMS_ITS | Encounter Summary ---
Author Organization Healthcare Address [address] [place] [address] Care Team Providers Care Accounting Machine Operator Name Role Phone Alice Narvaez Primary Care Provider [phone] Reason for Visit * Reason Comments Med Refill Encounter Details Date Type Department Care Team ([facility] st Contact Info) Description 09/29/2024 Refill Pav CC Head, Neck & Respiratory [address] [facility], [address]nd [place] [address] Nika Hernandez, MAIL OPENER [address] [place] [address] HTN, goal below 130/80; ASCVD (arteriosclerotic cardiovascular disease); Coronary artery disease involving [place] heart without angina pectoris, unspecified vessel or [...] Unspecified cardiovascular disease Coronary artery disease involving [place] heart without angina pectoris, unspecified vessel or lesion type documented in this encounter Additional Health Concerns Assessment Noted Time A fall risk assessment has been complete d for the patient 06/27/2023 11:20 AM EST A Body Mass Index follow-up plan has been documented for the patient 05/01/2024 4:31 PM EDT documented as of this encounter Care Teams Accounting Machine Operator Relationship Specialty Start Date End Date Alice Narvaez PA [address] [place] [address] PCP - General 12/24/20 documented as of this encounter
--- OUTSIDE RECORDS SUMMARY | 2025-07-26 22:58 | XMS_ITS | Clinical Summary ---
Author Organization Healthcare Address [address] [place] [address] Care Team Providers Care Terrazzo Tile Setter Name Role Phone Willis Narvaezie Em CRESPO Primary Care Provider [phone] Allergies Active Allergy Reactions Criticality Noted Date [...] a day. 3 Active ergocalciferol 1.25 MG (95376 UT) capsule Take 1 capsule (50,000 Units) [...] 24 hr tabletIndications:C oronary artery disease involving [place] heart without angina pectoris, unspecified vessel or lesion type Take 1 Tablet by mouth once daily. DO NOT CRUSH OR CHEW TABLET 90 tablet 4 Active atorvastatin (Lipitor) 80 MG tabletIndications:A SCVD (arteriosclerotic cardiovascular disease) Take 1 tablet by mouth 1 time each day. 90 tablet 4 Active Aspirin Low Dose 81 MG chewable tabletIndications:C oronary artery disease involving [place] coronary artery of [place] heart without angina pectoris Chew and Swallow [...] Second hand smoke exposure 05/08/2023 0 05/03/2025 Encounters Date Type Department Care Team Description 06/19/2025 Refill Pav CC Head, Neck & Respiratory [address] [facility], [address] [place] [address] Nika Hernandez, COMBINE INSPECTOR ASCVD (arteriosclerotic cardiovascular disease) from Last 3 Months Immunizations Immunization Administration Dates Next Due MMR [...] [facility]-HPV/Cotest 1994 CT Colonography 2009 Colonoscopy 2009 FIT 2009 FOBT 2009 Sigmoidoscopy 2009 [facility]-Breast Cancer Screening 2014 [facility]-Pneumococcal Vaccine: 50+ Years (1 of 1 - PCV) 2014 [facility]-RSV Vaccine: 60+ Years or (1 - Risk 50-74 years 1-dose series) 2014 [facility]-Zoster Vaccines (1 of 2) 2014 [facility]-DTaP,Tdap,and Td Vaccines (2 - Td or Tdap) 09/22/2023 09/22/2013, 10/15/1996 [facility]-Depression Screening 06/27/2024 06/27/2023 FIT-DNA 10/20/2024 10/20/2021 [facility]-Colorectal Cancer Screening 10/20/2024 [id number] Vaccine ( season) 2025 07/31/2021, 12/06/2020, 11/08/2020 [facility]-Influenza Vaccine (#1) 2025 06/15/2023 [facility]-Diabetes: Hemoglobin A1C Discontinued 03/26/2023 [facility]-HIV Screening Completed 02/06/2024 [facility]-Hepatitis C Screening Completed 02/06/2024 [facility]-Obesity Intervention Completed 024, 06/27/2023, 04/30/2023, Additional history exists HPV Vaccines (No Doses Required) Completed [facility]-HIB Vaccines Aged Out No longer e [...] HIV 1/2 Differentiation (02/06/2024 8:19 PM EDT) Pathologist [facility] HIV 1 & 2 Antibody/Antigen Screen Non Reactive Non Reactive 02/06/2024 9:31 PM EDT [facility] Comment:Screening for HIV 1 & 2 antibodies, and P24 antigen is NONREACTIVE. No confirmatory testing is required. Blood Venous blood specimen / Unknown Venipuncture / Unknown 02/06/2024 8:19 PM EDT 02/06/2024 8:59 PM EDT José Manuel Dang MD LAB BLOOD ORDERABLES Final Res ult Performing Organization Address City/[facility] Phone Number [facility] [address] [place] [address] * Hepatitis C Antibody - ED (02/06/2024 8:19 PM EDT) Pathologist [facility] Hepatitis C Antibody Negative Negative 02/06/2024 9:31 PM EDT [facility] Blood Venous blood specimen / Unknown Venipuncture / Unknown 02/06/2024 8:19 PM EDT 02/06/2024 8:59 PM EDT José Manuel Dang MD LAB BLOOD ORDERABLES Final Res ult [facility] [address] [place] [address] * (ABNORMAL) Hemoglobin A1c (03/26/2023 12:27 PM EDT) Pathologist [facility] Hemoglobin A1c 6.9(H) <5.7 % 03/26/2023 1:34 PM EDT [facility] Blood Venous blood specimen / Unknown [...] Adults <6.0% Children and Adolescents <7.5% Source: [place] [employer]. Standards of medical care in diabetes,2017. Diabetes Care.2017:40 (suppl 1):S1-S135. HbA1c assay performed by an ion-exchange chromatography method that is certified traceable to the DCCT. Marylin Roberts MD LAB BLOOD ORDERABLES Final Result [facility] [address] [place] [phone] from Last 3 Months or Most Recently Relevant to Health Maintenance Insurance [facility] MEDICAID Care Teams Terrazzo Tile Setter Relationship Specialty Start Date End Date Alice Narvaez PA [address] [place] [address] PCP - General 12/24/20
--- OUTSIDE RECORDS SUMMARY | 2025-07-26 22:58 | XMS_ITS | Encounter Summary ---
Author Organization Healthcare Address [address] [place] [address] Care Team Providers Care Services Host Name Role Phone Alice Narvaez Primary Care Provider Reason for Visit * Reason Comments Med Refill Encounter Details Date Type Department Care Team ([facility] st Contact Info) Description 06/17/2024 Refill Pav CC Head, Neck & Respiratory [address] [facility], [address] [place] [address] Nika Hernandez, LIVE GAMES DEALER [address] [place] [phone] ASCVD (arteriosclerotic cardiovascular disease); Coronary artery disease involving [place] heart without angina pectoris, unspecified vessel or [...] Unspecified cardiovascular disease Coronary artery disease involving [place] heart without angina pectoris, unspecified vessel or lesion type documented in this encounter Additional Health Concerns Assessment Noted Time A fall risk assessment has been complete d for the patient 06/27/2023 11:20 AM EST A Body Mass Index follow-up plan has been documented for the patient 05/01/2024 4:31 PM EDT documented as of this encounter Care Teams Services Host Relationship Specialty Start Date End Date Alice Narvaez PA [address] [place] [address] PCP - General 12/24/20 documented as of this encounter
--- OUTSIDE RECORDS SUMMARY | 2025-07-26 22:58 | XMS_ITS | Encounter Summary ---
Author Organization Healthcare Address [address] [place] [address] Care Team Providers Care Roving Tester Laboratory Name Role Phone Ailce Narvaez Primary Care Provider [phone] Reason for Visit * Reason Comments Med Refill Encounter Details Date Type Department Care Team ([facility] st Contact Info) Description 06/10/2024 Refill Pav CC Head, Neck & Respiratory [address] [facility], [address] [place] [address] Nika Hernandez, DEPARTMENT CLERK [address] [place] [phone] Coronary artery disease involving [place] heart without angina pectoris, unspecified vessel or [...] Visit Diagnoses Diagnosis Coronary artery disease involving [place] heart without angina pectoris, unspecified vessel or lesion type documented in this encounter Additional Health Concerns Assessment Noted Time A fall risk assessment has been complete d for the patient 06/27/2023 11:20 AM EST A Body Mass Index follow-up plan has been documented for the patient 05/01/2024 4:31 PM EDT documented as of this encounter Care Teams Roving Tester Laboratory Relationship Specialty Start Date End Date Alice Narvaez PA [address] [place] [address] PCP - General 12/24/20 documented as of this encounter
--- OUTSIDE RECORDS SUMMARY | 2025-07-26 22:58 | XMS_ITS | Encounter Summary ---
Author Organization Healthcare Address [address] [place] [address] Care Team Providers Care Photographer Apprentice Lithographic Name Role Phone Alice Narvaez Primary Care Provider Reason for Visit * Reason Comments Med Refill Encounter Details Date Type Department Care Team ([facility] st Contact Info) Description 09/16/2024 Refill Pav CC Head, Neck & Respiratory [address] [facility], [address] [place] [address] Nika Hernandez, CEMENT FINISHER HELPER [address] [place] [phone] ASCVD (arteriosclerotic cardiovascular disease) Social History Tobacco [...] documented as of this encounter Care Teams Photographer Apprentice Lithographic Relationship Specialty Start Date End Date Alice Narvaez PA [address] [place] [address] PCP - General 12/24/20 documented as of this encounter
--- OUTSIDE RECORDS SUMMARY | 2025-07-26 22:58 | XMS_ITS | Encounter Summary ---
Author Organization Healthcare Address [address] [place] [address] Care Team Providers Care Java Enterprise Architect Name Role Phone Brice Bosque Em CRESPO Primary Care Provider Reason for Visit * Reason Comments Med Refill Encounter Details Date Type Department Care Team ([facility] st Contact Info) Description 06/19/2025 Refill Pav CC Head, Neck & Respiratory [address] [facility], [address]nd [place] [address] Nika Hernandez, SECOND BUTLER [address] [place] [phone] ASCVD (arteriosclerotic cardiovascular disease) Social History Tobacco [...] encounter Miscellaneous Notes * Telephone Encounter - Caryl Jensen RN - 06/19/2025 11:25 AM EST Pt has not been seen by provider since 2022 documented in this encounter Plan of Treatment [...] documented as of this encounter Care Teams Java Enterprise Architect Relationship Specialty Start Date End Date Alice Narvaez PA [address] [place] [address] PCP - General 12/24/20 documented as of this encounter
--- NOTE | 2025-07-26 23:14 | XR_ITS ---
PROCEDURE INFORMATION: Exam: XR Chest Exam date and time: 07/27/2025 12:19 AM Age: 60 years old Clinical indication: Shortness of breath; Additional info: SOA TECHNIQUE: Imaging protocol: Radiologic exam of the chest. Views: 1 view. COMPARISON: CR XR CHEST PORTABLE 05/22/2025 3:37 PM FINDINGS: Lungs: Unremarkable. No consolidation. Pleural spaces: Unremarkable. No pleural effusion. No pneumothorax. Heart/Mediastinum: Stable cardiomegaly. Bones/joints: Unremarkable. IMPRESSION: Stable cardiomegaly.
--- NOTE | 2025-07-26 23:14 | CT_ITS ---
PROCEDURE INFORMATION: Exam: CT Abdomen And Pelvis With Contrast Exam date and time: 07/27/2025 12:05 AM Age: 60 years old Clinical indication: Nausea and vomiting; Abdominal pain; Additional info: Nausea vomiting abd pain TECHNIQUE: Imaging protocol: Computed tomography of the abdomen and pelvis with contrast. Radiation optimization: All CT scans at this facility use at least one of these dose optimization techniques: automated exposure control; mA and/or kV adjustment per patient size (includes targeted exams where dose is matched to clinical indication); or iterative reconstruction. Contrast material: ISOVUE; Contrast volume: 75 ml; Contrast route: IV; COMPARISON: US PELVIC 05/25/2025 12:08 PM FINDINGS: Liver: Normal. No mass. Gallbladder and biliary ducts: As on the prior studies, there is a masslike focus of high density within the gallbladder and there is an adjacent enlarged lymph node 22 x 16 mm. Pancreas: Normal. No ductal dilation. Spleen: Normal. No splenomegaly. Adrenal glands: Normal. No mass. Kidneys and ureters: Normal. No hydronephrosis. Stomach and bowel: Unremarkable. No obstruction. No mucosal thickening. Appendix: No evidence of appendicitis. Intraperitoneal space: Unremarkable. No free air. No significant fluid collection. Vasculature: Unremarkable. No abdominal aortic aneurysm. Lymph nodes: Unremarkable. No enlarged lymph nodes. Urinary bladder: Unremarkable as visualized. Reproductive: Unremarkable as visualized. Bones/joints: Remote left rib fractures. Soft tissues: Unremarkable. IMPRESSION: As on the prior studies, there is a masslike focus of high density within the gallbladder and there is an adjacent enlarged lymph node 22 x 16 mm. The persistence of this intraluminal abnormality within the gallbladder is concerning for neoplasm. Surgical consultation recommended.
--- NOTE | 2025-07-26 23:18 | HMH.EDGENADL ---
Discharge Plan Disposition Patient Disposition: Home, Self-Care Prescriptions Prescriptions: New ondansetron HCl 4 mg tablet 4 mg PO Q8H PRN (Reason: nausea and vomiting) 5 Days Qty: 30 0RF No Action famotidine 20 mg tablet 20 mg PO DAILY Qty: 90 3RF valsartan 160 mg tablet 160 mg PO DAILY Qty: 30 2RF Patient Comments: TAKE 1 TABLET BY MOUTH ONCE DAILY. aspirin 81 mg tablet,chewable 81 mg PO DAILY Patient Comments: CHEW AND SWALLOW 1 TABLET BY MOUTH ONCE DAILY. buspirone 5 mg tablet 5 mg PO TID cetirizine 10 mg tablet 10 mg PO DAILY venlafaxine 150 mg capsule,extended release 24hr 150 mg PO DAILY ergocalciferol (vitamin D2) 1,250 mcg (50,000 unit) capsule 1,250 mcg PO .TWICE WEEKLY albuterol sulfate 90 mcg/actuation HFA aerosol inhaler 2 puff inhalation Q6HP PRN (Reason: Shortness Of Breath Or Wheezing) oxybutynin chloride 5 mg tablet 5 mg PO TID cholecalciferol (vitamin D3) [Vitamin D3] 50 mcg (2,000 unit) capsule 50 mcg PO DAILY Tradjenta 5 mg tablet 5 mg PO DAILY Eliquis 5 mg tablet 5 mg PO BID Qty: 60 0RF furosemide 40 mg Tablet 40 mg PO BIDL 30 Days Qty: 60 0RF metoprolol succinate [Toprol XL] 50 mg Tablet Extended Release 24 Hr 75 mg PO DAILY 30 Days Qty: 45 0RF Referrals Follow up/Referrals: Abraham Prescott MD [Primary Care Provider, Family Practice] - See instructions Activity Restrictions/Add. Instructions Additional Instructions/Restrictions: Please take Zofran as needed for nausea and vomiting. Please follow-up with your primary care doctor for recheck of your kidney numbers as they were mildly elevated today. If your symptoms continue or worsen, recommend reevaluation. Clinical Impressions Clinical Impression: Nausea & vomiting Qualifiers: Vomiting type: unspecified Qualified Code(s): R11.2 - Nausea with vomiting, unspecified Instructions Patient Instructions: DI for Diarrhea and Traveler's Diarrhea in Adults, DI for Diarrhea and Traveler's Diarrhea in Children, DI for Nausea in Adults, DI for Nausea in Children Print Language Print Language: [place] Discharge ED Provider: Samuel Fernández General Adult HPI General Chief complaint: Nausea/Vomiting/Diarrhea Stated complaint: Nausea/Vomitting Time Seen by Provider: 07/26/25 22:58 Mode of Arrival: EMS Source of Information: Patient Description of Symptoms (Recalled from ER Triage Doc. by RN): Patient presents via [facility]. She states she had a panic attack this evening and vomitted twice today. She also states she is having new onset neck and back pain that started a few days ago. History of Present Illness HPI narrative: 60 male with history of city, debility, hypertension, heart failure presents for nausea and vomiting starting this morning. She reports that she has not been able to eat anything but has been able to keep down pop. She reports she has had some pain in her left arm over the last week or so but denies any trauma. Reports it is worse with movement, she is unable to specify any specific location, just says it hurts all over. She denies any chest pain or shortness of breath. She denies any diarrhea, fever. Denies any urinary symptoms. Reports that she normally has urinary symptoms of when she has a UTI. Related Data Home Medications ?Medication ?Instructions ?Recorded ?Confirmed albuterol sulfate 90 mcg/actuation 2 puff inhalation Q6HP PRN 05/23/25 05/23/25 aerosol inhaler Shortness Of Breath Or Wheezing aspirin 81 mg chewable tablet 81 mg PO DAILY 05/23/25 05/23/25 buspirone 5 mg tablet 5 mg PO TID 05/23/25 05/23/25 cetirizine 10 mg tablet 10 mg PO DAILY 05/23/25 05/23/25 cholecalciferol (vitamin D3) 50 50 mcg PO DAILY 05/23/25 05/23/25 mcg (2,000 unit) capsule (Vitamin D3) ergocalciferol (vitamin D2) 1,250 1,250 mcg PO .TWICE WEEKLY 05/23/25 05/23/25 mcg (50,000 unit) capsule linagliptin 5 mg tablet (Tradjenta) 5 mg PO DAILY 05/23/25 05/23/25 oxybutynin chloride 5 mg tablet 5 mg PO TID 05/23/25 05/23/25 venlafaxine 150 mg 150 mg PO DAILY 05/23/25 05/23/25 capsule,extended release 24 hr Previous Rx's ?Medication ?Instructions ?Recorded famotidine 20 mg tablet 20 mg PO DAILY #90 tabs 02/25/24 valsartan 160 mg tablet 160 mg PO DAILY #30 tabs 11/27/24 apixaban 5 mg tablet (Eliquis) 5 mg PO BID #60 tabs 05/26/25 furosemide 40 mg tablet 40 mg PO BIDL 30 days #60 tabs 05/26/25 metoprolol succinate 50 mg 75 mg (1.5 x 50 mg) PO DAILY 30 05/26/25 tablet,extended release 24 hr days #45 tabs (Toprol XL) ondansetron HCl 4 mg tablet 4 mg PO Q8H PRN nausea and 07/27/25 vomiting 5 days #30 tabs Allergies Allergy/AdvReac Type Severity Reaction Status Date / Time Penicillins Allergy Unknown Hives Verified 02/06/24 15:09 [facility] Disclaimer: The information contained in this section may have been updated after the patient was seen, as this information can be updated by other users. Medical History (Updated 07/27/25 @ 01:46 by Samuel Fernández MD) Atrial fibrillation by electrocardiogram Pulmonary edema Morbid obesity with BMI of 40.0-44.9, adult Gallbladder mass Pelvic hernia Acute heart failure with preserved ejection fraction (HFpEF) Allergic rhinitis Osteoarthritis Hypertension Diabetes Surgical History History of colonoscopy Family History (Updated 05/22/25 @ 20:56 by Sruthi Gonzalez RN) Other No significant family history Social History (Updated 05/22/25 @ 20:55 by Sruthi Gonzalez RN) Smoking Status: Current every day smoker tobacco type: cigarettes packs per day: 1 second hand exposure: Yes alcohol intake: never substance use type: marijuana current occupational status: unemployed Travel in the last 8 weeks?: None household members: spouse housing: house current occupational exposures/hazards: No caffeine: Yes Have you lived/traveled outside [place] in past 30 days?: No Contact w/someone who lives/traveled outside [place] past 30 days?: No Exposure to someone with infectious disease in past 14 days?: No Do you have a fever (greater than 100.4 F or 38 C)?: No Have you tested positive for COVID-19?: No Exposed to someone with COVID-19 in past 14 days?: No Do you have a sore throat?: No Do you have a cough?: No Do you have any weakness?: No Do you have any diarrhea?: No Are you experiencing any unusual bleeding?: No Do you have any muscle aches/pain?: No Do you have any abdominal pain?: No Are you experiencing loss of taste or smell?: No Other Medical History Have you received the Flu Vaccine for this season: No Have you received the Pneumonia Vaccine: No ROS Obtained: Yes All systems reviewed & no additional complaints except as documented Physical Exam General General appearance: alert and in no apparent distress Head Head exam: atraumatic and normocephalic Eye Eye exam: Present normal appearance, PERRL and EOMI ENT ENT exam: Present normal oropharynx and normal external ear exam Neck Neck exam: Present normal inspection and full ROM Chest Chest inspection: Present normal inspection and symmetric chest wall rise; Absent tenderness Respiratory Respiratory exam: Present normal lung sounds bilaterally; Absent respiratory distress Cardiovascular Cardiovascular exam: Present regular rate and normal rhythm Abdominal Exam Abdominal exam: Present soft; Absent distention, tenderness or guarding Extremities Exam Extremities exam: Present normal inspection; Absent edema or joint swelling Back Exam Back exam: Present normal inspection; Absent tenderness Neurological Exam Neurological exam: Present alert and oriented X3; Absent motor sensory deficit Psychiatric Psychiatric exam: Present normal affect and normal mood Skin Skin exam: Present warm, dry and normal color Lymphatic Lymphatic Findings: no adenopathy Medical Decision Making Medical Records Medical records reviewed: Yes I reviewed the patient's medical records. Screening: Per USPSTF and CDC recommendations, given the prevalence of disease in our region, it is our hospital?s policy to screen for HIV and viral Hepatitis for all patients aged 18 and over and those with ongoing risk factors. Robert Inquiry Pt receiving controlled substance: No Robert was queried for this patient: No Vital Signs: 07/26/25 22:50 Temperature 98.4 F Temperature Source Oral Pulse Rate [Right] 102 H Respiratory Rate 16 Blood Pressure [Right Arm] 118/90 Blood Pressure Mean [Right Arm] 99 Blood Pressure Source [Right Arm] Automatic Cuff 02 Sat by Pulse Oximetry 98 Oxygen Delivery Method Room Air Lab Data Lab results reviewed: Yes I reviewed the patient's lab results. Lab Results 07/26/25 23:00: WBC 10.7, RBC 4.52, Hgb 14.1, Hct 42.2, MCV 93.4, MCH 31.2, MCHC 33.4, RDW 14.0, Plt Count 229, MPV 11.2 H, Neut % (Auto) 59.5, Lymph % (Auto) 26.7, [place] % (Auto) 10.3 H, Eos % (Auto) 2.3, Baso % (Auto) 0.6, Neut # (Auto) 6.4, Lymph # (Auto) 2.9, [place] # (Auto) 1.1 H, Eos # (Auto) 0.3, Baso # (Auto) 0.1, Sodium 139, Potassium 4.3, Chloride 104, Carbon Dioxide 21 L, Anion Gap 18.3 H, BUN 23 H, Creatinine 1.40 H, Estimated Creat Clear 40, Estimated GFR 38 L, Est GFR ( Amer) 46 L, Glucose 105 H, Calcium 10.4 H, Magnesium 1.9, Total Bilirubin 0.9, AST 19, ALT 13, Alkaline Phosphatase 59, Troponin I < 0.01, Total Protein 7.6, Albumin 3.9, Globulin 3.7 H, Albumin/Globulin Ratio 1.1, Lipase 33 07/27/25 01:00: Urine Color Yellow, Urine Appearance Clear, Urine pH 5.5, Ur Specific [place] >= 1.030, Urine Protein Negative, Urine Glucose (UA) Negative, Urine Ketones Negative, Urine Blood Negative, Urine Nitrate Negative, Urine Bilirubin 1+ A, Urine Urobilinogen 0.2, Ur Leukocyte Esterase Negative 07/26/25 23:00 07/26/25 23:00 Orders (Tests/Meds): ED MEDICATIONS Generic Name Dose Route Start Last Admin Trade Name Freq PRN Reason Stop Dose Admin Sodium Chloride 10 ml 07/27/25 00:16 07/27/25 00:27 Sodium Chloride 0.9% 10ml Syr (Rad Only) IV 08/26/25 00:15 10 ml NEEDED PRN Administration Maintain IV Site Discontinued Medications Generic Name Dose Route Start Last Admin Trade Name Freq PRN Reason Stop Dose Admin Acetaminophen 1,000 mg 07/26/25 23:14 07/26/25 23:24 Acetaminophen 1,000mg/100ml Vial IV 07/26/25 23:15 1,000 mg ONCE ONE Administration Sodium Chloride 1,000 mls @ 999 mls/hr 07/26/25 23:15 07/27/25 01:12 Sod Chlor 0.9% 1000ml Bag IV 07/27/25 00:15 Infused .Q1H1M JOSEPHINE Infusion Iopamidol 75 ml 07/27/25 00:16 07/27/25 00:27 Iopamidol-370 (76%);100ml Bottle IV 07/27/25 00:17 75 ml ONCE ONE Administration Ketorolac Tromethamine 15 mg 07/26/25 23:14 07/26/25 23:25 Ketorolac 30mg/Ml Vial IV 07/26/25 23:15 15 mg ONCE ONE Administration Ondansetron HCl 4 mg 07/26/25 23:14 07/26/25 23:24 Ondansetron 4mg/2ml Vial IV 07/26/25 23:15 4 mg ONCE ONE Administration ORDERS Category Date Time Status CT abdomen pelvis w con Stat Cat Scan 07/26/25 23:14 Completed CXR --portable [XR chest portable] Stat Exams 07/26/25 23:14 Completed CBC w/Auto Diff [Complete Blood Count Auto Diff] Stat Lab 07/26/25 23:00 Completed CMP [Comprehensive Metabolic Panel] Stat Lab 07/26/25 23:00 Completed Lipase Stat Lab 07/26/25 23:00 Completed Magnesium Stat Lab 07/26/25 23:00 Completed Troponin I Q3H Lab 07/26/25 23:00 Completed Troponin I Q3H Lab 07/27/25 02:15 Ordered UA [Urinalysis and Microscopic] Stat Lab 07/27/25 01:00 Completed Medical Decision Narrative: 60-year-old female with history of obesity, heart failure, hypertension presents for nausea vomiting x 1 day.. History was obtained via interactive discussion with patient, EMS. On arrival, patient is [afebrile, hemodynamically stable, satting appropriately, alert, oriented x4, GCS 15], moving all extremities spontaneously. Full physical exam performed and significant for no significant abdominal tenderness to palpation, no significant lower extremity edema, clear lungs bilaterally Differential includes but is not limited to gastroenteritis, constipation, obstruction, cholecystitis, pancreatitis. Patient was given Tylenol Toradol Zofran, 1 L fluid for symptomatic management and correction of underlying abnormalities. Workup initiated including CBC CMP lipase CT abdomen pelvis with IV contrast urinalysis. On re-evaluation, patient reports some symptomatic improvement Laboratory workup independently interpreted by me and significant for negative lipase, normal LFTs, no significant leukocytosis, mildly elevated creatinine from baseline. Imaging independently interpreted by me and significant for CT scan shows stable appearance of intraluminal gall water mass concerning for neoplasm. Patient reports that she is aware of this and was supposed to follow-up but has not yet.. See radiology read for full review of final results. Given patient history, exam and workup, patient's presentation most likely represents gastroenteritis. Presentation does not appear consistent with cholecystitis given no right upper quadrant pain and chronic appearance of CT with normal LFTs. I again encouraged patient to follow-up for reassessment of the gallbladder mass. Recommend she follow-up with her PCP for recheck of her creatinine in the next week. Return precautions given for persistent/worsening symptoms. She is discharged with prescription for Zofran Procedures Risk/Benefits of Procedure(s) Were Explained: Yes Critical Care Critical Care Time Critical Care Time: No
[2025-07-26] MEDS: ACETAMINOPHEN 1,000MG/100ML VIAL 1000 MG IV (23:24)
[2025-07-26] MEDS: 0.9 % SODIUM CHLORIDE 1000ML 1,000 ML 999 ML IV (23:24)
[2025-07-26] MEDS: ONDANSETRON 4MG/2ML VIAL 4 MG IV (23:24)
[2025-07-26] MEDS: KETOROLAC 30MG/ML VIAL 15 MG IV (23:25)
[2025-07-26 23:28] LABS: Hematocrit 42.2 % (37.0-47.0); Hemoglobin 14.1 g/dL (12.2-16.2); Immature Granulocytes % 0.6 %; Mean Corpuscular HGB Conc 33.4 g/dL (31.8-35.4); Mean Corpuscular Hemoglobin 31.2 pg (27.0-31.2); Mean Corpuscular Volume 93.4 fl (81-99); Nucleated Red Blood Cells % 0 %; Platelet Count 229 K/mm3 (142-424); Red Blood Count 4.52 M/mm3 (4.20-5.40); Red Cell Distribution Width-SD 47.7 fL; White Blood Count 10.7 K/mm3 (4.8-10.8)
[2025-07-26 23:46] LABS: Alanine Aminotransferase 13 U/L (12-78); Albumin Level 3.9 g/dl (3.5-5.0); Albumin/Globulin Ratio 1.1 (1.1-1.8); Alkaline Phosphatase 59 U/L (38-126); Anion Gap 18.3 mEq/L (5-15); Aspartate Amino Transferase 19 U/L (14-36); Bilirubin,Total 0.9 mg/dl (0.2-1.3); Blood Urea Nitrogen 23 mg/dl (7-17); Calcium 10.4 mg/dl (8.4-10.2); Carbon Dioxide 21 mmol/L (22.0-30.0); Chloride 104 mmol/L (98-107); Creatinine Clearance Estimated 40 mL/min (50-200); Creatinine,Serum 1.40 mg/dl (0.52-1.04); Estimated Glomerular Filt Rate 38 ml/min (>60); GFR (African American) 46 ML/MIN (>60); Globulin 3.7 g/dL (1.3-3.2); Glucose 105 mg/dl (74-100); Lipase 33 U/L (23-300); Magnesium 1.9 mg/dl (1.6-2.3); Potassium 4.3 mmoL/L (3.5-5.1); Sodium 139 mmol/L (136-145); Total Protein,Serum 7.6 g/dl (6.3-8.2)
[2025-07-27 00:13] LABS: Troponin I < 0.01 ng/ml (0.00-0.034)
[2025-07-27] MEDS: IOPAMIDOL-370 (76%);100ML BOTTLE 75 ML IV (00:27)
[2025-07-27] MEDS: SODIUM CHLORIDE 0.9% 10ML SYR (RAD ONLY) 10 ML IV (00:27)
[2025-07-27 01:10] LABS: Microscopic, Urine URINE MICROSCOPIC (MICROSCOPIC)
[2025-07-27 01:12] LABS: Color,Urine YELLOW (Yellow); Glucose,Urine (UA) Negative (Negative); Ketones,Urine Negative (Negative); Leukocyte Esterase,Urine Negative (Negative); PH,Urine 5.5 (5.0-8.5); Protein,Urine Negative (Negative); Specific Gravity, Urine >= 1.030 (1.005-1.030); Urobilinogen,Urine 0.2 EU/dl (0.2)
--- NOTE | 2025-07-27 01:13 | PC.NURSE ---
Urine specimen obtained from I/O catheter. 100cc of minerva urine returned.
[2025-07-27 01:20] LABS: Bilirubin,Urine 1+ (Negative)
[2025-07-27 02:16] VITALS: BP 93/59; PULSE 85; RESP 16; TEMP 36.9; O2SAT 96
== END 2025-07-27 02:36 | disposition home or self-care (01) ==
PROVIDERS: Emergency Provider Emergency Medicine; PCP Family Medicine
DX: R11.2 Nausea with vomiting, unspecified (principal); E11.9 Type 2 diabetes mellitus without complications; I11.0 Hypertensive heart disease with heart failure; I50.31 Acute diastolic (congestive) heart failure; F17.210 Nicotine dependence, cigarettes, uncomplicated; Z79.84 Long term (current) use of oral hypoglycemic drugs
CPT/HCPCS: 71045; 74177; 80053; 81001; 83690; 83735; 84484; 85025; 93005; 96361; 96374; 96375; 99285; J0131; J1885; J2405; J7030; Q9967